=== PATIENT | male | born 1960 | race Caucasian/White ===

== ENCOUNTER 2019-01-18 06:38 | Emergency (ER) | payer OTHER, MEDICAID, SELFPAY ==
[2019-01-18 06:50] VITALS: BP 158/102; PULSE 85; RESP 20; TEMP 36.5; O2SAT 98; BMI 33.8
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
--- NOTE | 2019-01-18 07:07 | PC.NURSE ---
His distal CMS on left foot is intact.
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
== END 2019-01-18 07:58 | disposition home or self-care (01) ==
PROVIDERS: Emergency Provider Emergency Medicine; PCP Nurse Practitioner
DX: S93.502A Unspecified sprain of left great toe, initial encounter (principal)
CPT/HCPCS: 73630; 99283

== ENCOUNTER 2019-03-17 00:58 | Emergency (ER) | payer OTHER, MEDICAID, SELFPAY ==
[2019-03-17] VITALS (51 sets, daily range): BP systolic 139–207; BP diastolic 76–139; PULSE 70–117; RESP 13–22; TEMP 36.6–37.3; O2SAT 92–100; BMI 35.7
--- NOTE | 2019-03-17 01:04 | ED.ALCOHOL ---
HPI - Alcohol <Alison Murray DO - Last Filed: 03/20/19 11:34> General Chief Complaint: Toxicology Problem Stated Complaint: ETOH x5 Days Time Seen by Provider: 03/17/19 01:03 Source: patient and EMS Mode of arrival: EMS Limitations: no limitations History of Present Illness HPI narrative: Patient is a 58-year-old male presenting by EMS with alcohol intoxication and suicidal ideation. He states he has been drinking heavily at least a L of vodka daily for the last few days. He states that he would like to take a bunch of pills in order to kill himself. He says he was previously in a mental health hospital in [facility]. He is here requesting help. Is not sure if he needs detox versus mental Health but he overall feels very sad depressed. He states he does have a history of depression and bipolar. He also complains of chest pain abdominal pain shortness breath no nausea or vomiting. MD complaint: alcohol intoxication Related Data Previous Rx's Medication Instructions Recorded hydrocodone-acetaminophen [[place]] 1 tab PO Q6H PRN #8 tab 01/18/19 meloxicam 7.5 mg PO DAILY PRN #20 tab 01/18/19 Allergies Allergy/AdvReac Type Severity Reaction Status Date / Time No Known Drug Allergies Allergy Verified 01/18/19 07:13 Review of Systems <DO Katrin Vasquez Last Filed: 03/20/19 11:34> Review of Systems ROS Unobtainable: All systems reviewed & are unremarkable except as noted in HPI and below Constitutional Denies chills, Denies fever(s), Denies lethargy and Denies weakness Eyes Denies change in vision, Denies eye discharge, Denies irritation and Denies loss of vision ENT Ears, Nose, Mouth, and Throat: Denies change in voice, Denies neck pain and Denies sore throat Cardiovascular Reports as per HPI, Reports chest pain, Denies diaphoresis, Denies edema, Denies lightheadedness and Denies dyspnea Respiratory Denies cough, Denies dyspnea and Denies wheezing Gastrointestinal Gastrointestinal: Reports abdominal pain, Reports nausea and Denies vomiting Genitourinary Denies hematuria, Denies flank pain, Denies urinary incontinence and Denies urinary urgency Musculoskeletal Denies neck pain Integumentary/Breasts Denies pruritus, Denies erythema, Denies rash and Denies wounds Neurologic Denies loss of vision and Denies weakness Allergic/Immunologic Denies wheezing PFSH <Alison Murray DO - Last Filed: 03/20/19 11:34> Medical History Anxiety (Acute) Bipolar 1 disorder (Acute) Depression (Acute) Hypertension (Acute) Social History Smoking Status: Never smoker Social History Smoking Status: Never smoker Exam <DO Katrin Vasquez Last Filed: 03/20/19 11:34> Initial Vital Signs Initial Vital Signs: Vital Signs Temperature 97.8 F 03/17/19 01:00 Pulse Rate 85 03/17/19 01:00 Respiratory Rate 20 03/17/19 01:00 Blood Pressure 170/100 H 03/17/19 01:00 Pulse Oximetry 98 03/17/19 01:00 GENERAL: Alert sad alcohol on breath HEENT: Head atraumatic,EOMI, pupils reactive, face symmetric, moist mucous membranes CARDIOVASCULAR: Regular rate and rhythm without murmurs, rubs or gallops. RESPIRATORY: Breath sounds equal bilaterally, no wheezes rales or rhonchi. ABDOMEN: Soft, nontender. Normoactive bowel sounds all 4 quadrants. No guarding or rebound. EXTREMITIES: Normal range of motion, no clubbing or edema. Neurovascularly intact NEUROLOGICAL: Alert and oriented x4.Normal gait and speech. SKIN: Warm, dry, no laceration, no petechiae, no rashes or lesions. <Sal Aguilera, DO - Last Filed: 03/18/19 23:30> Initial Vital Signs Initial Vital Signs: Vital Signs Temperature 97.8 F 03/17/19 01:00 Pulse Rate 85 03/17/19 01:00 Respiratory Rate 20 03/17/19 01:00 Blood Pressure 170/100 H 03/17/19 01:00 Pulse Oximetry 98 03/17/19 01:00 <Kary Isaac DO - Last Filed: 03/18/19 17:55> Initial Vital Signs Initial Vital Signs: Vital Signs Temperature 97.8 F 03/17/19 01:00 Pulse Rate 85 03/17/19 01:00 Respiratory Rate 20 03/17/19 01:00 Blood Pressure 170/100 H 03/17/19 01:00 Pulse Oximetry 98 03/17/19 01:00 Course <Alison Murray DO - Last Filed: 03/20/19 11:34> Orders Ordered: Discontinued Medications Carvedilol (Coreg) 6.25 mg PO NOW ONE Stop: 03/17/19 21:14 Last Admin: 03/17/19 21:26 Dose: 6.25 mg Carvedilol (Coreg) 6.25 mg PO NOW ONE Stop: 03/18/19 07:03 Last Admin: 03/18/19 07:13 Dose: 6.25 mg Sodium Chloride (Normal Saline 0.9%) 1,000 mls @ 1,000 mls/hr IV CONT FORTUNATO Last Infusion: 03/17/19 04:34 Dose: 0 mls/hr Admin: 03/17/19 02:30 Dose: 1,000 mls/hr Sodium Chloride (Normal Saline 0.9%) 1,000 mls @ 1,000 mls/hr IV BOLUS ONE Stop: 03/17/19 11:13 Last Infusion: 03/17/19 11:36 Dose: 0 mls/hr Admin: 03/17/19 10:22 Dose: 1,000 mls/hr Thiamine HCl 100 mg/ Dextrose 51 mls @ 204 mls/hr IV NOW ONE Stop: 03/17/19 10:15 Last Infusion: 03/17/19 10:50 Dose: 0 mls/hr Admin: 03/17/19 10:31 Dose: 204 mls/hr Ibuprofen (Advil) 800 mg PO NOW ONE Stop: 03/17/19 06:40 Last Admin: 03/17/19 06:48 Dose: 800 mg Ibuprofen (Advil) 800 mg PO NOW ONE Stop: 03/17/19 20:08 Last Admin: 03/17/19 20:13 Dose: 800 mg Lisinopril (Zestril) 40 mg PO NOW ONE Stop: 03/17/19 21:14 Last Admin: 03/17/19 21:27 Dose: 40 mg Lorazepam (Ativan) 2 mg PO NOW ONE Stop: 03/17/19 01:32 Last Admin: 03/17/19 01:36 Dose: 2 mg Lorazepam (Ativan) 2 mg IV NOW ONE Stop: 03/17/19 14:52 Last Admin: 03/17/19 14:51 Dose: 2 mg Lorazepam (Ativan) 2 mg PO NOW ONE Stop: 03/17/19 21:14 Last Admin: 03/17/19 21:25 Dose: 2 mg Lorazepam (Ativan) 1 mg PO NOW ONE Stop: 03/18/19 09:00 Last Admin: 03/18/19 09:15 Dose: Not Given Lorazepam (Ativan) 2 mg PO NOW ONE Stop: 03/18/19 09:01 Last Admin: 03/18/19 09:04 Dose: 2 mg Ondansetron HCl (Zofran) 4 mg IV Q4HR PRN PRN Reason: Nausea And Vomiting Last Admin: 03/17/19 10:23 Dose: 4 mg Ondansetron HCl (Zofran) 4 mg IV NOW ONE Stop: 03/17/19 20:08 Last Admin: 03/17/19 20:13 Dose: 4 mg Pantoprazole Sodium (Protonix) 40 mg IV NOW ONE Stop: 03/17/19 10:15 Last Admin: 03/17/19 10:23 Dose: 40 mg Vital Signs - 8 hr 03/18/19 10:08 03/18/19 11:02 03/18/19 11:37 Temperature 97.0 F L Pulse Rate 59 L 68 68 Respiratory Rate 14 14 15 Blood Pressure [Right Arm] 171/98 H 166/105 H 177/98 H Pulse Oximetry 95 93 94 <Sal Aguilera, - Last Filed: 03/18/19 23:30> Course Narrative: Patient signed out to me from nighttime provider, Dr. Murray. I performed an independent history and physical exam. Patient is awake, alert and oriented, he has capacity to make his own decisions and understand consequences of his decisions. He continues to have suicidal thoughts and has a plan to overdose on pills. He sees no light at the end of the tunnel and states there is nothing anybody can do to help him. He continues to feel nauseated and is thirsty, fluids and antiemetics have been ordered. BUSINESS CONSULT will be down after repeat of EtOH. It is my opinion that patient will need hospitalization and cannot contract for his safety Orders Ordered: Discontinued Medications Carvedilol (Coreg) 6.25 mg PO NOW ONE Stop: 03/17/19 21:14 Last Admin: 03/17/19 21:26 Dose: 6.25 mg Carvedilol (Coreg) 6.25 mg PO NOW ONE Stop: 03/18/19 07:03 Last Admin: 03/18/19 07:13 Dose: 6.25 mg Sodium Chloride (Normal Saline 0.9%) 1,000 mls @ 1,000 mls/hr IV CONT FORTUNATO Last Infusion: 03/17/19 04:34 Dose: 0 mls/hr Admin: 03/17/19 02:30 Dose: 1,000 mls/hr Sodium Chloride (Normal Saline 0.9%) 1,000 mls @ 1,000 mls/hr IV BOLUS ONE Stop: 03/17/19 11:13 Last Infusion: 03/17/19 11:36 Dose: 0 mls/hr Admin: 03/17/19 10:22 Dose: 1,000 mls/hr Thiamine HCl 100 mg/ Dextrose 51 mls @ 204 mls/hr IV NOW ONE Stop: 03/17/19 10:15 Last Infusion: 03/17/19 10:50 Dose: 0 mls/hr Admin: 03/17/19 10:31 Dose: 204 mls/hr Ibuprofen (Advil) 800 mg PO NOW ONE Stop: 03/17/19 06:40 Last Admin: 03/17/19 06:48 Dose: 800 mg Ibuprofen (Advil) 800 mg PO NOW ONE Stop: 03/17/19 20:08 Last Admin: 03/17/19 20:13 Dose: 800 mg Lisinopril (Zestril) 40 mg PO NOW ONE Stop: 03/17/19 21:14 Last Admin: 03/17/19 21:27 Dose: 40 mg Lorazepam (Ativan) 2 mg PO NOW ONE Stop: 03/17/19 01:32 Last Admin: 03/17/19 01:36 Dose: 2 mg Lorazepam (Ativan) 2 mg IV NOW ONE Stop: 03/17/19 14:52 Last Admin: 03/17/19 14:51 Dose: 2 mg Lorazepam (Ativan) 2 mg PO NOW ONE Stop: 03/17/19 21:14 Last Admin: 03/17/19 21:25 Dose: 2 mg Lorazepam (Ativan) 1 mg PO NOW ONE Stop: 03/18/19 09:00 Last Admin: 03/18/19 09:15 Dose: Not Given Lorazepam (Ativan) 2 mg PO NOW ONE Stop: 03/18/19 09:01 Last Admin: 03/18/19 09:04 Dose: 2 mg Ondansetron HCl (Zofran) 4 mg IV Q4HR PRN PRN Reason: Nausea And Vomiting Last Admin: 03/17/19 10:23 Dose: 4 mg Ondansetron HCl (Zofran) 4 mg IV NOW ONE Stop: 03/17/19 20:08 Last Admin: 03/17/19 20:13 Dose: 4 mg Pantoprazole Sodium (Protonix) 40 mg IV NOW ONE Stop: 03/17/19 10:15 Last Admin: 03/17/19 10:23 Dose: 40 mg Vital Signs - 8 hr 03/18/19 10:08 03/18/19 11:02 03/18/19 11:37 Temperature 97.0 F L Pulse Rate 59 L 68 68 Respiratory Rate 14 14 15 Blood Pressure [Right Arm] 171/98 H 166/105 H 177/98 H Pulse Oximetry 95 93 94 <Kary Isaac, - Last Filed: 03/18/19 17:55> Orders Ordered: Discontinued Medications Carvedilol (Coreg) 6.25 mg PO NOW ONE Stop: 03/17/19 21:14 Last Admin: 03/17/19 21:26 Dose: 6.25 mg Carvedilol (Coreg) 6.25 mg PO NOW ONE Stop: 03/18/19 07:03 Last Admin: 03/18/19 07:13 Dose: 6.25 mg Sodium Chloride (Normal Saline 0.9%) 1,000 mls @ 1,000 mls/hr IV CONT FORTUNATO Last Infusion: 03/17/19 04:34 Dose: 0 mls/hr Admin: 03/17/19 02:30 Dose: 1,000 mls/hr Sodium Chloride (Normal Saline 0.9%) 1,000 mls @ 1,000 mls/hr IV BOLUS ONE Stop: 03/17/19 11:13 Last Infusion: 03/17/19 11:36 Dose: 0 mls/hr Admin: 03/17/19 10:22 Dose: 1,000 mls/hr Thiamine HCl 100 mg/ Dextrose 51 mls @ 204 mls/hr IV NOW ONE Stop: 03/17/19 10:15 Last Infusion: 03/17/19 10:50 Dose: 0 mls/hr Admin: 03/17/19 10:31 Dose: 204 mls/hr Ibuprofen (Advil) 800 mg PO NOW ONE Stop: 03/17/19 06:40 Last Admin: 03/17/19 06:48 Dose: 800 mg Ibuprofen (Advil) 800 mg PO NOW ONE Stop: 03/17/19 20:08 Last Admin: 03/17/19 20:13 Dose: 800 mg Lisinopril (Zestril) 40 mg PO NOW ONE Stop: 03/17/19 21:14 Last Admin: 03/17/19 21:27 Dose: 40 mg Lorazepam (Ativan) 2 mg PO NOW ONE Stop: 03/17/19 01:32 Last Admin: 03/17/19 01:36 Dose: 2 mg Lorazepam (Ativan) 2 mg IV NOW ONE Stop: 03/17/19 14:52 Last Admin: 03/17/19 14:51 Dose: 2 mg Lorazepam (Ativan) 2 mg PO NOW ONE Stop: 03/17/19 21:14 Last Admin: 03/17/19 21:25 Dose: 2 mg Lorazepam (Ativan) 1 mg PO NOW ONE Stop: 03/18/19 09:00 Last Admin: 03/18/19 09:15 Dose: Not Given Lorazepam (Ativan) 2 mg PO NOW ONE Stop: 03/18/19 09:01 Last Admin: 03/18/19 09:04 Dose: 2 mg Ondansetron HCl (Zofran) 4 mg IV Q4HR PRN PRN Reason: Nausea And Vomiting Last Admin: 03/17/19 10:23 Dose: 4 mg Ondansetron HCl (Zofran) 4 mg IV NOW ONE Stop: 03/17/19 20:08 Last Admin: 03/17/19 20:13 Dose: 4 mg Pantoprazole Sodium (Protonix) 40 mg IV NOW ONE Stop: 03/17/19 10:15 Last Admin: 03/17/19 10:23 Dose: 40 mg Vital Signs - 8 hr 03/18/19 10:08 03/18/19 11:02 03/18/19 11:37 Temperature 97.0 F L Pulse Rate 59 L 68 68 Respiratory Rate 14 14 15 Blood Pressure [Right Arm] 171/98 H 166/105 H 177/98 H Pulse Oximetry 95 93 94 MDM - Alcohol <Ailson Murray DO - Last Filed: 03/20/19 11:34> Lab Data Attestation: I reviewed the patient's lab results. Result diagrams: 03/17/19 02:28 03/17/19 02:55 Labs: Lab Results 03/17/19 03/17/19 03/17/19 Range/Units 02:28 02:55 06:24 WBC 9.1 (4.5-11.0) X10^3/uL RBC 5.35 (4.5-5.9) X10^6/uL Hgb 16.5 (13.5-17.5) g/dL Hct 48.4 (41-53) % MCV 90.5 (80-100) fL MCH 30.9 (26-34) PG MCHC 34.1 (30-36) % RDW 13.6 (11.6-14.8) % Plt Count 250 (150-400) X10^3/uL Neut % (Auto) 57.1 (50-75) % Lymph % (Auto) 36.6 (25-40) % [place] % (Auto) 4.9 (3-14) % Eos % (Auto) 0.8 L (2-4) % Baso % (Auto) 0.6 (0-2) % Neut # (Auto) 5200 (8808-5990) /uL Lymph # (Auto) 3300 (3441-0701) /uL [place] # (Auto) 400 (0-900) /uL Eos # (Auto) 100 (0-450) /uL Baso # (Auto) 100 (0-100) /uL Sodium 141 (137-145) mmol/L Potassium 3.9 (3.4-5.1) mmol/L Chloride 104 (98-107) mmol/L Carbon Dioxide 24 (22-32) mmol/L BUN 23 H (9-20) mg/dL Creatinine 1.00 (0.66-1.25) mg/dL Estimated GFR > 60.0 (>60) mL/min BUN/Creatinine Ratio 23.0 H (6-22) Glucose 105 H (70-100) mg/dL Calcium 8.2 L (8.4-10.2) mg/dL Total Bilirubin 0.5 (0.2-1.3) mg/dL AST 38 (17-59) IU/L ALT 36 (21-72) IU/L Alkaline Phosphatase 40 (38-126) U/L Total Creatine Kinase 53 L (55-170) U/L CK-MB (CK-2) TNP CK-MB (CK-2) Rel Index TNP Troponin I < 0.012 < 0.012 (0.01-0.034) ng/mL B-Natriuretic Peptide < 100 (<100) Total Protein 6.9 (6.3-8.2) g/dL Albumin 4.0 (3.5-5.0) g/dL Globulin 2.9 (1.7-4.1) g/dL Albumin/Globulin Ratio 1.4 (1.0-2.8) Lipase 159 (23-300) U/L Urine Opiates Screen (Negative) Ur Oxycodone Screen (Negative) Urine Methadone Screen (Negative) Ur Barbiturates Screen (Negative) U Tricyclic Antidepress (Negative) Ur Phencyclidine Scrn (Negative) Ur Amphetamines Screen (Negative) U Methamphetamines Scrn (Negative) Ur MDMA Scrn (Ecstasy) (Negative) U Benzodiazepines Scrn (Negative) Urine Cocaine Screen (Negative) U Marijuana (THC) Screen (Negative) Ethyl Alcohol 256 mg/dL 03/17/19 03/17/19 03/17/19 Range/Units 06:24 06:43 11:03 WBC (4.5-11.0) X10^3/uL RBC (4.5-5.9) X10^6/uL Hgb (13.5-17.5) g/dL Hct (41-53) % MCV (80-100) fL MCH (26-34) PG MCHC (30-36) % RDW (11.6-14.8) % Plt Count (150-400) X10^3/uL Neut % (Auto) (50-75) % Lymph % (Auto) (25-40) % [place] % (Auto) (3-14) % Eos % (Auto) (2-4) % Baso % (Auto) (0-2) % Neut # (Auto) (9112-0590) /uL Lymph # (Auto) (3582-5780) /uL [place] # (Auto) (0-900) /uL Eos # (Auto) (0-450) /uL Baso # (Auto) (0-100) /uL Sodium (137-145) mmol/L Potassium (3.4-5.1) mmol/L Chloride (98-107) mmol/L Carbon Dioxide (22-32) mmol/L BUN (9-20) mg/dL Creatinine (0.66-1.25) mg/dL Estimated GFR (>60) mL/min BUN/Creatinine Ratio (6-22) Glucose (70-100) mg/dL Calcium (8.4-10.2) mg/dL Total Bilirubin (0.2-1.3) mg/dL AST (17-59) IU/L ALT (21-72) IU/L Alkaline Phosphatase (38-126) U/L Total Creatine Kinase (55-170) U/L CK-MB (CK-2) CK-MB (CK-2) Rel Index Troponin I (0.01-0.034) ng/mL B-Natriuretic Peptide (<100) Total Protein (6.3-8.2) g/dL Albumin (3.5-5.0) g/dL Globulin (1.7-4.1) g/dL Albumin/Globulin Ratio (1.0-2.8) Lipase (23-300) U/L Urine Opiates Screen Negative (Negative) Ur Oxycodone Screen Negative (Negative) Urine Methadone Screen Negative (Negative) Ur Barbiturates Screen Negative (Negative) U Tricyclic Antidepress Negative (Negative) Ur Phencyclidine Scrn Negative (Negative) Ur Amphetamines Screen Positive H (Negative) U Methamphetamines Scrn Positive H (Negative) Ur MDMA Scrn (Ecstasy) Negative (Negative) U Benzodiazepines Scrn Positive H (Negative) Urine Cocaine Screen Negative (Negative) U Marijuana (THC) Screen Positive H (Negative) Ethyl Alcohol 224 150 mg/dL 03/17/19 Range/Units 14:01 WBC (4.5-11.0) X10^3/uL RBC (4.5-5.9) X10^6/uL Hgb (13.5-17.5) g/dL Hct (41-53) % MCV (80-100) fL MCH (26-34) PG MCHC (30-36) % RDW (11.6-14.8) % Plt Count (150-400) X10^3/uL Neut % (Auto) (50-75) % Lymph % (Auto) (25-40) % [place] % (Auto) (3-14) % Eos % (Auto) (2-4) % Baso % (Auto) (0-2) % Neut # (Auto) (2878-1369) /uL Lymph # (Auto) (6401-7617) /uL [place] # (Auto) (0-900) /uL Eos # (Auto) (0-450) /uL Baso # (Auto) (0-100) /uL Sodium (137-145) mmol/L Potassium (3.4-5.1) mmol/L Chloride (98-107) mmol/L Carbon Dioxide (22-32) mmol/L BUN (9-20) mg/dL Creatinine (0.66-1.25) mg/dL Estimated GFR (>60) mL/min BUN/Creatinine Ratio (6-22) Glucose (70-100) mg/dL Calcium (8.4-10.2) mg/dL Total Bilirubin (0.2-1.3) mg/dL AST (17-59) IU/L ALT (21-72) IU/L Alkaline Phosphatase (38-126) U/L Total Creatine Kinase (55-170) U/L CK-MB (CK-2) CK-MB (CK-2) Rel Index Troponin I (0.01-0.034) ng/mL B-Natriuretic Peptide (<100) Total Protein (6.3-8.2) g/dL Albumin (3.5-5.0) g/dL Globulin (1.7-4.1) g/dL Albumin/Globulin Ratio (1.0-2.8) Lipase (23-300) U/L Urine Opiates Screen (Negative) Ur Oxycodone Screen (Negative) Urine Methadone Screen (Negative) Ur Barbiturates Screen (Negative) U Tricyclic Antidepress (Negative) Ur Phencyclidine Scrn (Negative) Ur Amphetamines Screen (Negative) U Methamphetamines Scrn (Negative) Ur MDMA Scrn (Ecstasy) (Negative) U Benzodiazepines Scrn (Negative) Urine Cocaine Screen (Negative) U Marijuana (THC) Screen (Negative) Ethyl Alcohol 104 mg/dL Point of Care Testing Breathalizer 0.086 Urine Dip Bedside Urine Glucose Negative Bedside Urine Bilirubin - Negative Bedside Urine Ketone - Negative Urine Specific [place] 1.015 Bedside Urine Occult Blood - Negative Bedside Urine pH 6.5 Bedside Urine Protein - Negative Bedside Urine Urobilinogen +/- 1mg Bedside Urine Nitrite - Negative Bedside Urine Leukocytes - Negative Esterase Imaging Data Chest x-ray: Attestation: I personally reviewed and interpreted this imaging study as follows: My impression: No acute cardiopulmonary process ECG Data Attestation: I personally reviewed and interpreted this ECG as follows: Prior ECG tracings: available for review Interpretation: Normal sinus rhythm rate 83 P are interval [address] changes no T-wave inversions priors to compare MDM Narrative Medical decision making narrative: 6:30 a.m. patient is awake alert. His I have re-evaluated him. He says he basically does not care anymore. He wants medicine for his headache which he is offered Tylenol or ibuprofen for for which he refuses. Social work consult has been placed. I do not feel that patient is trust worthy he does not seem to be able to contract for safety. He does not have a good support system. He is very vague in his responses. Repeat breathalyzer is 86 at 7:00 a.m. 6:00 p.m.. patient signed out to me by day should provider. Awaiting psychiatric placement. [facility] and detox center did call they would like his blood pressure better controlled before they accept him and will re-evaluate him in morning. [facility] At this time no other facilities have beds. <Sal Aguilera, DO - Last Filed: 03/18/19 23:30> Lab Data Labs: Lab Results 03/17/19 03/17/19 03/17/19 Range/Units 02:28 02:55 06:24 WBC 9.1 (4.5-11.0) X10^3/uL RBC 5.35 (4.5-5.9) X10^6/uL Hgb 16.5 (13.5-17.5) g/dL Hct 48.4 (41-53) % MCV 90.5 (80-100) fL MCH 30.9 (26-34) PG MCHC 34.1 (30-36) % RDW 13.6 (11.6-14.8) % Plt Count 250 (150-400) X10^3/uL Neut % (Auto) 57.1 (50-75) % Lymph % (Auto) 36.6 (25-40) % [place] % (Auto) 4.9 (3-14) % Eos % (Auto) 0.8 L (2-4) % Baso % (Auto) 0.6 (0-2) % Neut # (Auto) 5200 (9163-3512) /uL Lymph # (Auto) 3300 (2443-8474) /uL [place] # (Auto) 400 (0-900) /uL Eos # (Auto) 100 (0-450) /uL Baso # (Auto) 100 (0-100) /uL Sodium 141 (137-145) mmol/L Potassium 3.9 (3.4-5.1) mmol/L Chloride 104 (98-107) mmol/L Carbon Dioxide 24 (22-32) mmol/L BUN 23 H (9-20) mg/dL Creatinine 1.00 (0.66-1.25) mg/dL Estimated GFR > 60.0 (>60) mL/min BUN/Creatinine Ratio 23.0 H (6-22) Glucose 105 H (70-100) mg/dL Calcium 8.2 L (8.4-10.2) mg/dL Total Bilirubin 0.5 (0.2-1.3) mg/dL AST 38 (17-59) IU/L ALT 36 (21-72) IU/L Alkaline Phosphatase 40 (38-126) U/L Total Creatine Kinase 53 L (55-170) U/L CK-MB (CK-2) TNP CK-MB (CK-2) Rel Index TNP Troponin I < 0.012 < 0.012 (0.01-0.034) ng/mL B-Natriuretic Peptide < 100 (<100) Total Protein 6.9 (6.3-8.2) g/dL Albumin 4.0 (3.5-5.0) g/dL Globulin 2.9 (1.7-4.1) g/dL Albumin/Globulin Ratio 1.4 (1.0-2.8) Lipase 159 (23-300) U/L Urine Opiates Screen (Negative) Ur Oxycodone Screen (Negative) Urine Methadone Screen (Negative) Ur Barbiturates Screen (Negative) U Tricyclic Antidepress (Negative) Ur Phencyclidine Scrn (Negative) Ur Amphetamines Screen (Negative) U Methamphetamines Scrn (Negative) Ur MDMA Scrn (Ecstasy) (Negative) U Benzodiazepines Scrn (Negative) Urine Cocaine Screen (Negative) U Marijuana (THC) Screen (Negative) Ethyl Alcohol 256 mg/dL 03/17/19 03/17/19 03/17/19 Range/Units 06:24 06:43 11:03 WBC (4.5-11.0) X10^3/uL RBC (4.5-5.9) X10^6/uL Hgb (13.5-17.5) g/dL Hct (41-53) % MCV (80-100) fL MCH (26-34) PG MCHC (30-36) % RDW (11.6-14.8) % Plt Count (150-400) X10^3/uL Neut % (Auto) (50-75) % Lymph % (Auto) (25-40) % [place] % (Auto) (3-14) % Eos % (Auto) (2-4) % Baso % (Auto) (0-2) % Neut # (Auto) (0615-9060) /uL Lymph # (Auto) (9775-7617) /uL [place] # (Auto) (0-900) /uL Eos # (Auto) (0-450) /uL Baso # (Auto) (0-100) /uL Sodium (137-145) mmol/L Potassium (3.4-5.1) mmol/L Chloride (98-107) mmol/L Carbon Dioxide (22-32) mmol/L BUN (9-20) mg/dL Creatinine (0.66-1.25) mg/dL Estimated GFR (>60) mL/min BUN/Creatinine Ratio (6-22) Glucose (70-100) mg/dL Calcium (8.4-10.2) mg/dL Total Bilirubin (0.2-1.3) mg/dL AST (17-59) IU/L ALT (21-72) IU/L Alkaline Phosphatase (38-126) U/L Total Creatine Kinase (55-170) U/L CK-MB (CK-2) CK-MB (CK-2) Rel Index Troponin I (0.01-0.034) ng/mL B-Natriuretic Peptide (<100) Total Protein (6.3-8.2) g/dL Albumin (3.5-5.0) g/dL Globulin (1.7-4.1) g/dL Albumin/Globulin Ratio (1.0-2.8) Lipase (23-300) U/L Urine Opiates Screen Negative (Negative) Ur Oxycodone Screen Negative (Negative) Urine Methadone Screen Negative (Negative) Ur Barbiturates Screen Negative (Negative) U Tricyclic Antidepress Negative (Negative) Ur Phencyclidine Scrn Negative (Negative) Ur Amphetamines Screen Positive H (Negative) U Methamphetamines Scrn Positive H (Negative) Ur MDMA Scrn (Ecstasy) Negative (Negative) U Benzodiazepines Scrn Positive H (Negative) Urine Cocaine Screen Negative (Negative) U Marijuana (THC) Screen Positive H (Negative) Ethyl Alcohol 224 150 mg/dL 03/17/19 Range/Units 14:01 WBC (4.5-11.0) X10^3/uL RBC (4.5-5.9) X10^6/uL Hgb (13.5-17.5) g/dL Hct (41-53) % MCV (80-100) fL MCH (26-34) PG MCHC (30-36) % RDW (11.6-14.8) % Plt Count (150-400) X10^3/uL Neut % (Auto) (50-75) % Lymph % (Auto) (25-40) % [place] % (Auto) (3-14) % Eos % (Auto) (2-4) % Baso % (Auto) (0-2) % Neut # (Auto) (7299-8166) /uL Lymph # (Auto) (6939-5470) /uL [place] # (Auto) (0-900) /uL Eos # (Auto) (0-450) /uL Baso # (Auto) (0-100) /uL Sodium (137-145) mmol/L Potassium (3.4-5.1) mmol/L Chloride (98-107) mmol/L Carbon Dioxide (22-32) mmol/L BUN (9-20) mg/dL Creatinine (0.66-1.25) mg/dL Estimated GFR (>60) mL/min BUN/Creatinine Ratio (6-22) Glucose (70-100) mg/dL Calcium (8.4-10.2) mg/dL Total Bilirubin (0.2-1.3) mg/dL AST (17-59) IU/L ALT (21-72) IU/L Alkaline Phosphatase (38-126) U/L Total Creatine Kinase (55-170) U/L CK-MB (CK-2) CK-MB (CK-2) Rel Index Troponin I (0.01-0.034) ng/mL B-Natriuretic Peptide (<100) Total Protein (6.3-8.2) g/dL Albumin (3.5-5.0) g/dL Globulin (1.7-4.1) g/dL Albumin/Globulin Ratio (1.0-2.8) Lipase (23-300) U/L Urine Opiates Screen (Negative) Ur Oxycodone Screen (Negative) Urine Methadone Screen (Negative) Ur Barbiturates Screen (Negative) U Tricyclic Antidepress (Negative) Ur Phencyclidine Scrn (Negative) Ur Amphetamines Screen (Negative) U Methamphetamines Scrn (Negative) Ur MDMA Scrn (Ecstasy) (Negative) U Benzodiazepines Scrn (Negative) Urine Cocaine Screen (Negative) U Marijuana (THC) Screen (Negative) Ethyl Alcohol 104 mg/dL Point of Care Testing Breathalizer 0.086 Urine Dip Bedside Urine Glucose Negative Bedside Urine Bilirubin - Negative Bedside Urine Ketone - Negative Urine Specific [place] 1.015 Bedside Urine Occult Blood - Negative Bedside Urine pH 6.5 Bedside Urine Protein - Negative Bedside Urine Urobilinogen +/- 1mg Bedside Urine Nitrite - Negative Bedside Urine Leukocytes - Negative Esterase <Kary Isaac, - Last Filed: 03/18/19 17:55> Lab Data Attestation: I reviewed the patient's lab results. Labs: Lab Results 03/17/19 03/17/19 03/17/19 Range/Units 02:28 02:55 06:24 WBC 9.1 (4.5-11.0) X10^3/uL RBC 5.35 (4.5-5.9) X10^6/uL Hgb 16.5 (13.5-17.5) g/dL Hct 48.4 (41-53) % MCV 90.5 (80-100) fL MCH 30.9 (26-34) PG MCHC 34.1 (30-36) % RDW 13.6 (11.6-14.8) % Plt Count 250 (150-400) X10^3/uL Neut % (Auto) 57.1 (50-75) % Lymph % (Auto) 36.6 (25-40) % [place] % (Auto) 4.9 (3-14) % Eos % (Auto) 0.8 L (2-4) % Baso % (Auto) 0.6 (0-2) % Neut # (Auto) 5200 (7641-8285) /uL Lymph # (Auto) 3300 (3046-0166) /uL [place] # (Auto) 400 (0-900) /uL Eos # (Auto) 100 (0-450) /uL Baso # (Auto) 100 (0-100) /uL Sodium 141 (137-145) mmol/L Potassium 3.9 (3.4-5.1) mmol/L Chloride 104 (98-107) mmol/L Carbon Dioxide 24 (22-32) mmol/L BUN 23 H (9-20) mg/dL Creatinine 1.00 (0.66-1.25) mg/dL Estimated GFR > 60.0 (>60) mL/min BUN/Creatinine Ratio 23.0 H (6-22) Glucose 105 H (70-100) mg/dL Calcium 8.2 L (8.4-10.2) mg/dL Total Bilirubin 0.5 (0.2-1.3) mg/dL AST 38 (17-59) IU/L ALT 36 (21-72) IU/L Alkaline Phosphatase 40 (38-126) U/L Total Creatine Kinase 53 L (55-170) U/L CK-MB (CK-2) TNP CK-MB (CK-2) Rel Index TNP Troponin I < 0.012 < 0.012 (0.01-0.034) ng/mL B-Natriuretic Peptide < 100 (<100) Total Protein 6.9 (6.3-8.2) g/dL Albumin 4.0 (3.5-5.0) g/dL Globulin 2.9 (1.7-4.1) g/dL Albumin/Globulin Ratio 1.4 (1.0-2.8) Lipase 159 (23-300) U/L Urine Opiates Screen (Negative) Ur Oxycodone Screen (Negative) Urine Methadone Screen (Negative) Ur Barbiturates Screen (Negative) U Tricyclic Antidepress (Negative) Ur Phencyclidine Scrn (Negative) Ur Amphetamines Screen (Negative) U Methamphetamines Scrn (Negative) Ur MDMA Scrn (Ecstasy) (Negative) U Benzodiazepines Scrn (Negative) Urine Cocaine Screen (Negative) U Marijuana (THC) Screen (Negative) Ethyl Alcohol 256 mg/dL 03/17/19 03/17/19 03/17/19 Range/Units 06:24 06:43 11:03 WBC (4.5-11.0) X10^3/uL RBC (4.5-5.9) X10^6/uL Hgb (13.5-17.5) g/dL Hct (41-53) % MCV (80-100) fL MCH (26-34) PG MCHC (30-36) % RDW (11.6-14.8) % Plt Count (150-400) X10^3/uL Neut % (Auto) (50-75) % Lymph % (Auto) (25-40) % [place] % (Auto) (3-14) % Eos % (Auto) (2-4) % Baso % (Auto) (0-2) % Neut # (Auto) (7031-5282) /uL Lymph # (Auto) (0082-9514) /uL [place] # (Auto) (0-900) /uL Eos # (Auto) (0-450) /uL Baso # (Auto) (0-100) /uL Sodium (137-145) mmol/L Potassium (3.4-5.1) mmol/L Chloride (98-107) mmol/L Carbon Dioxide (22-32) mmol/L BUN (9-20) mg/dL Creatinine (0.66-1.25) mg/dL Estimated GFR (>60) mL/min BUN/Creatinine Ratio (6-22) Glucose (70-100) mg/dL Calcium (8.4-10.2) mg/dL Total Bilirubin (0.2-1.3) mg/dL AST (17-59) IU/L ALT (21-72) IU/L Alkaline Phosphatase (38-126) U/L Total Creatine Kinase (55-170) U/L CK-MB (CK-2) CK-MB (CK-2) Rel Index Troponin I (0.01-0.034) ng/mL B-Natriuretic Peptide (<100) Total Protein (6.3-8.2) g/dL Albumin (3.5-5.0) g/dL Globulin (1.7-4.1) g/dL Albumin/Globulin Ratio (1.0-2.8) Lipase (23-300) U/L Urine Opiates Screen Negative (Negative) Ur Oxycodone Screen Negative (Negative) Urine Methadone Screen Negative (Negative) Ur Barbiturates Screen Negative (Negative) U Tricyclic Antidepress Negative (Negative) Ur Phencyclidine Scrn Negative (Negative) Ur Amphetamines Screen Positive H (Negative) U Methamphetamines Scrn Positive H (Negative) Ur MDMA Scrn (Ecstasy) Negative (Negative) U Benzodiazepines Scrn Positive H (Negative) Urine Cocaine Screen Negative (Negative) U Marijuana (THC) Screen Positive H (Negative) Ethyl Alcohol 224 150 mg/dL 03/17/19 Range/Units 14:01 WBC (4.5-11.0) X10^3/uL RBC (4.5-5.9) X10^6/uL Hgb (13.5-17.5) g/dL Hct (41-53) % MCV (80-100) fL MCH (26-34) PG MCHC (30-36) % RDW (11.6-14.8) % Plt Count (150-400) X10^3/uL Neut % (Auto) (50-75) % Lymph % (Auto) (25-40) % [place] % (Auto) (3-14) % Eos % (Auto) (2-4) % Baso % (Auto) (0-2) % Neut # (Auto) (4022-5355) /uL Lymph # (Auto) (7205-1677) /uL [place] # (Auto) (0-900) /uL Eos # (Auto) (0-450) /uL Baso # (Auto) (0-100) /uL Sodium (137-145) mmol/L Potassium (3.4-5.1) mmol/L Chloride (98-107) mmol/L Carbon Dioxide (22-32) mmol/L BUN (9-20) mg/dL Creatinine (0.66-1.25) mg/dL Estimated GFR (>60) mL/min BUN/Creatinine Ratio (6-22) Glucose (70-100) mg/dL Calcium (8.4-10.2) mg/dL Total Bilirubin (0.2-1.3) mg/dL AST (17-59) IU/L ALT (21-72) IU/L Alkaline Phosphatase (38-126) U/L Total Creatine Kinase (55-170) U/L CK-MB (CK-2) CK-MB (CK-2) Rel Index Troponin I (0.01-0.034) ng/mL B-Natriuretic Peptide (<100) Total Protein (6.3-8.2) g/dL Albumin (3.5-5.0) g/dL Globulin (1.7-4.1) g/dL Albumin/Globulin Ratio (1.0-2.8) Lipase (23-300) U/L Urine Opiates Screen (Negative) Ur Oxycodone Screen (Negative) Urine Methadone Screen (Negative) Ur Barbiturates Screen (Negative) U Tricyclic Antidepress (Negative) Ur Phencyclidine Scrn (Negative) Ur Amphetamines Screen (Negative) U Methamphetamines Scrn (Negative) Ur MDMA Scrn (Ecstasy) (Negative) U Benzodiazepines Scrn (Negative) Urine Cocaine Screen (Negative) U Marijuana (THC) Screen (Negative) Ethyl Alcohol 104 mg/dL Point of Care Testing Breathalizer 0.086 Urine Dip Bedside Urine Glucose Negative Bedside Urine Bilirubin - Negative Bedside Urine Ketone - Negative Urine Specific [place] 1.015 Bedside Urine Occult Blood - Negative Bedside Urine pH 6.5 Bedside Urine Protein - Negative Bedside Urine Urobilinogen +/- 1mg Bedside Urine Nitrite - Negative Bedside Urine Leukocytes - Negative Esterase MDM Narrative Medical decision making narrative: This is a 58-year-old male who was signed out to myself by Dr. Murray, patient came in after intentional ingestion and suicidal ideation, patient also has a history alcohol abuse. Patient has not been able to contract for safety. He was seen by social work yesterday and they were working on placement on a voluntary facility. Patient states he still not sure that he can be safe at home, we discussed that [facility] had re-contacted and that would be potentially a bed available and patient expressed interest. [facility] had also requested that we watch patient's blood pressure. Patient did receive his Coreg this morning. His diastolic is still elevated as well as his systolic a little bit. He does not appear to be in lars DTs but would likely benefit from a little bit of Ativan. Patient states he feels a little nauseous. Patient otherwise has been cooperative and calm. He asked if he can continue to sleep. Patient accepted at [facility], blood pressure has been creeping up. Patient had coreg around 7:30am. Given ativan 2mg po, received last dose around 9pm. Plan for transport at 12:30pm for arrival at 2pm. Patient BP elevated but improving after ativan, suspect some withdrawl symptoms although patient is not having any other physician symptoms at this time. Discharge Plan Departure Patient Disposition: Xfer Psychiatric [facility]osp Clinical Impression: Depression with suicidal ideation, Alcohol abuse Discharge Date/Time: 03/18/19 12:15 Interventions: ED Discharge Assessment Last Done: 03/18/19 12:15 Referrals: Lana Rizzo ARNP [Primary Care Provider] -
--- NOTE | 2019-03-17 01:05 | DI.RAD.S_ITS ---
PROCEDURE: XR CHEST 1V INDICATIONS: short of breath TECHNIQUE: One view of the chest was acquired. COMPARISON: [facility], CR, XR CHEST 1 VIEW, 06/23/2018, 17:33. FINDINGS: Surgical changes and devices: None. Lungs and pleura: Lungs are clear. No pleural effusions or pneumothorax. Mediastinum: Mediastinal contours appear normal. Heart size is normal. Bones and chest wall: No suspicious bony lesions. Overlying soft tissues appear unremarkable. IMPRESSION: Normal for age, source of current shortness of breath symptoms is not seen. Dictated by: Edis Breaux M.D. on 03/17/2019 at 8:27 Approved by: Edis Breaux M.D. on 03/17/2019 at 8:28
--- NOTE | 2019-03-17 01:30 | PC.NURSE ---
I attempted to place an IV in the patients left hand. patient states I hate needles, you do not understand. patient pulls back his hand when I try to place the tourniquet on. patient states this is why I did not want to come here. Patient agreed to let me try and place the IV. when I tried to place the IV the patient kept jerking. No success on the IV attempt. While holding pressure and gauze on the patients hand where the angio cath punctured his skin the patient thrashing and moaning. I continued to try and tell the patient that there was no needle and that I was just holding pressure. patient still moaning and thrashing lifted his left leg and kicked the bed almost hitting me. Patient asked to calm down. Patient apologized.
[2019-03-17] MEDS: LORazepam 0.5 MG TABLET 2 MG PO ×2 (01:36→21:25)
--- NOTE | 2019-03-17 01:51 | PC.NURSE ---
Pt was placed in Green paper scrubs, room was cleared for suicidal precautions.
--- NOTE | 2019-03-17 02:03 | PC.NURSE ---
Pt became very agitated when attmepting to start PIV. You don't understand. I hate needles. Emotional support given, de-escalation techniques attempted to aid placement of IV. Pt was writhing in bed, kicked at RN placing IV. No IV placed. Dr Murray notified, 2mg ativan ordered PO for ETOH and agitation. Pt placed in hospital safety attire, extra equipment and potential weapons removed from room. Pt cooperative, apologetic at this time. pharmacy care coordinator called for sitter-- she states she will phone the [employer] pest controller assistant. Pt in high-vis room, remains on cardiac montior. Constant obs for safety.
--- NOTE | 2019-03-17 02:27 | PC.NURSE ---
Pt now sedate after ativan. PIV placed to left hand, pt tolerated well.
[2019-03-17] MEDS: SODIUM CHLORIDE 0.9% 1,000 ML 1000 ML IV ×2 (02:30→10:22)
--- NOTE | 2019-03-17 02:37 | PC.NURSE ---
Paulo Miller now with patient for continuous obs for safety.
[2019-03-17 02:40] LABS: Add Manual Diff / Slide Review NO; Basophils Absolute Auto 100 /uL (0-100); Basophils Percent Auto 0.6 % (0-2); Eosinophils Absolute Auto 100 /uL (0-450); Eosinophils Percent Auto 0.8 % (2-4); Hematocrit 48.4 % (41-53); Hemoglobin 16.5 g/dL (13.5-17.5); Lymphocytes Absolute Auto 3300 /uL (1100-4500); Lymphocytes Percent Auto 36.6 % (25-40); Mean Corpuscular HGB Conc 34.1 % (30-36); Mean Corpuscular Hemoglobin 30.9 PG (26-34); Mean Corpuscular Volume 90.5 fL (80-100); Monocytes Absolute Auto 400 /uL (0-900); Monocytes Percent Auto 4.9 % (3-14); Neutrophils Absolute Auto 5200 /uL (1500-7000); Neutrophils Percent Auto 57.1 % (50-75); Platelet Count 250 X10^3/uL (150-400); Red Blood Cell Count 5.35 X10^6/uL (4.5-5.9); Red Cell Distribution Width 13.6 % (11.6-14.8); White Blood Cell Count 9.1 X10^3/uL (4.5-11.0)
--- NOTE | 2019-03-17 02:44 | PC.NURSE ---
PHOTOGRAPHY MANAGER: pt. is sleeping
--- NOTE | 2019-03-17 02:58 | PC.NURSE ---
BARI pt. is sleeping.
[2019-03-17 03:07] LABS: B Type Natriuretic Peptide < 100 (<100)
[2019-03-17 03:12] LABS: Alanine Aminotransferase 36 IU/L (21-72); Albumin Globulin Ratio 1.4 (1.0-2.8); Alkaline Phosphatase 40 U/L (38-126); Aspartate Aminotransferase 38 IU/L (17-59); Bilirubin Total 0.5 mg/dL (0.2-1.3); Blood Urea Nitrogen 23 mg/dL (9-20); Calcium 8.2 mg/dL (8.4-10.2); Carbon Dioxide 24 mmol/L (22-32); Chloride 104 mmol/L (98-107); Creatine Kinase 53 U/L (55-170); Estimated Glomerular Filt Rate > 60.0 mL/min (>60); Globulin 2.9 g/dL (1.7-4.1); Glucose 105 mg/dL (70-100); HEMOLYSIS 15 (0-50); Lipase 159 U/L (23-300); Potassium 3.9 mmol/L (3.4-5.1); Sodium 141 mmol/L (137-145); Total Protein 6.9 g/dL (6.3-8.2)
--- NOTE | 2019-03-17 03:16 | PC.NURSE ---
PYTHON DJANGO DEVELOPER: pt. is sleeping.
[2019-03-17 03:24] LABS: Troponin I < 0.012 ng/mL (0.01-0.034)
[2019-03-17 03:25] LABS: Ethanol (ETOH) 256 mg/dL
--- NOTE | 2019-03-17 03:30 | PC.NURSE ---
O AND M SUPERVISOR: pt. is sleeping
--- NOTE | 2019-03-17 03:45 | PC.NURSE ---
DEPUTY COMMISSIONER: pt is sleeping
--- NOTE | 2019-03-17 03:46 | ED_ITS ---
HPI - Alcohol <Alison Murray DO - Last Filed: 03/20/19 11:34> General Chief Complaint: Toxicology Problem Stated Complaint: ETOH x5 Days Time Seen by Provider: 03/17/19 01:03 Source: patient and EMS Mode of arrival: EMS Limitations: no limitations History of Present Illness HPI narrative: Patient is a 58-year-old male presenting by EMS with alcohol intoxication and suicidal ideation. He states he has been drinking heavily at least a L of vodka daily for the last few days. He states that he would like to take a bunch of pills in order to kill himself. He says he was previously in a mental health hospital in [facility]. He is here requesting help. Is not sure if he needs detox versus mental Health but he overall feels very sad depressed. He states he does have a history of depression and bipolar. He also complains of chest pain abdominal pain shortness breath no nausea or vomiting. MD complaint: alcohol intoxication Related Data Previous Rx's Medication Instructions Recorded hydrocodone-acetaminophen [Picke[place]] 1 tab PO Q6H PRN #8 tab 01/18/19 meloxicam 7.5 mg PO DAILY PRN #20 tab 01/18/19 Allergies Allergy/AdvReac Type Severity Reaction Status Date / Time No Known Drug Allergies Allergy Verified 01/18/19 07:13 Review of Systems <DO Katrin Vasquez Last Filed: 03/20/19 11:34> Review of Systems ROS Unobtainable: All systems reviewed & are unremarkable except as noted in HPI and below Constitutional Denies chills, Denies fever(s), Denies lethargy and Denies weakness Eyes Denies change in vision, Denies eye discharge, Denies irritation and Denies loss of vision ENT Ears, Nose, Mouth, and Throat: Denies change in voice, Denies neck pain and Denies sore throat Cardiovascular Reports as per HPI, Reports chest pain, Denies diaphoresis, Denies edema, Denies lightheadedness and Denies dyspnea Respiratory Denies cough, Denies dyspnea and Denies wheezing Gastrointestinal Gastrointestinal: Reports abdominal pain, Reports nausea and Denies vomiting Genitourinary Denies hematuria, Denies flank pain, Denies urinary incontinence and Denies urinary urgency Musculoskeletal Denies neck pain Integumentary/Breasts Denies pruritus, Denies erythema, Denies rash and Denies wounds Neurologic Denies loss of vision and Denies weakness Allergic/Immunologic Denies wheezing PFSH <Alison Murray DO - Last Filed: 03/20/19 11:34> Medical History Anxiety (Acute) Bipolar 1 disorder (Acute) Depression (Acute) Hypertension (Acute) Social History Smoking Status: Never smoker Social History Smoking Status: Never smoker Exam <DO Katrin Vasquez Last Filed: 03/20/19 11:34> Initial Vital Signs Initial Vital Signs: Vital Signs Temperature 97.8 F 03/17/19 01:00 Pulse Rate 85 03/17/19 01:00 Respiratory Rate 20 03/17/19 01:00 Blood Pressure 170/100 H 03/17/19 01:00 Pulse Oximetry 98 03/17/19 01:00 GENERAL: Alert sad alcohol on breath HEENT: Head atraumatic,EOMI, pupils reactive, face symmetric, moist mucous membranes CARDIOVASCULAR: Regular rate and rhythm without murmurs, rubs or gallops. RESPIRATORY: Breath sounds equal bilaterally, no wheezes rales or rhonchi. ABDOMEN: Soft, nontender. Normoactive bowel sounds all 4 quadrants. No guarding or rebound. EXTREMITIES: Normal range of motion, no clubbing or edema. Neurovascularly intact NEUROLOGICAL: Alert and oriented x4.Normal gait and speech. SKIN: Warm, dry, no laceration, no petechiae, no rashes or lesions. <Sal Aguilera, DO - Last Filed: 03/18/19 23:30> Initial Vital Signs Initial Vital Signs: Vital Signs Temperature 97.8 F 03/17/19 01:00 Pulse Rate 85 03/17/19 01:00 Respiratory Rate 20 03/17/19 01:00 Blood Pressure 170/100 H 03/17/19 01:00 Pulse Oximetry 98 03/17/19 01:00 <Kary Isaac DO - Last Filed: 03/18/19 17:55> Initial Vital Signs Initial Vital Signs: Vital Signs Temperature 97.8 F 03/17/19 01:00 Pulse Rate 85 03/17/19 01:00 Respiratory Rate 20 03/17/19 01:00 Blood Pressure 170/100 H 03/17/19 01:00 Pulse Oximetry 98 03/17/19 01:00 Course <Alison Murray DO - Last Filed: 03/20/19 11:34> Orders Ordered: Discontinued Medications Carvedilol (Coreg) 6.25 mg PO NOW ONE Stop: 03/17/19 21:14 Last Admin: 03/17/19 21:26 Dose: 6.25 mg Carvedilol (Coreg) 6.25 mg PO NOW ONE Stop: 03/18/19 07:03 Last Admin: 03/18/19 07:13 Dose: 6.25 mg Sodium Chloride (Normal Saline 0.9%) 1,000 mls @ 1,000 mls/hr IV CONT FORTUNATO Last Infusion: 03/17/19 04:34 Dose: 0 mls/hr Admin: 03/17/19 02:30 Dose: 1,000 mls/hr Sodium Chloride (Normal Saline 0.9%) 1,000 mls @ 1,000 mls/hr IV BOLUS ONE Stop: 03/17/19 11:13 Last Infusion: 03/17/19 11:36 Dose: 0 mls/hr Admin: 03/17/19 10:22 Dose: 1,000 mls/hr Thiamine HCl 100 mg/ Dextrose 51 mls @ 204 mls/hr IV NOW ONE Stop: 03/17/19 10:15 Last Infusion: 03/17/19 10:50 Dose: 0 mls/hr Admin: 03/17/19 10:31 Dose: 204 mls/hr Ibuprofen (Advil) 800 mg PO NOW ONE Stop: 03/17/19 06:40 Last Admin: 03/17/19 06:48 Dose: 800 mg Ibuprofen (Advil) 800 mg PO NOW ONE Stop: 03/17/19 20:08 Last Admin: 03/17/19 20:13 Dose: 800 mg Lisinopril (Zestril) 40 mg PO NOW ONE Stop: 03/17/19 21:14 Last Admin: 03/17/19 21:27 Dose: 40 mg Lorazepam (Ativan) 2 mg PO NOW ONE Stop: 03/17/19 01:32 Last Admin: 03/17/19 01:36 Dose: 2 mg Lorazepam (Ativan) 2 mg IV NOW ONE Stop: 03/17/19 14:52 Last Admin: 03/17/19 14:51 Dose: 2 mg Lorazepam (Ativan) 2 mg PO NOW ONE Stop: 03/17/19 21:14 Last Admin: 03/17/19 21:25 Dose: 2 mg Lorazepam (Ativan) 1 mg PO NOW ONE Stop: 03/18/19 09:00 Last Admin: 03/18/19 09:15 Dose: Not Given Lorazepam (Ativan) 2 mg PO NOW ONE Stop: 03/18/19 09:01 Last Admin: 03/18/19 09:04 Dose: 2 mg Ondansetron HCl (Zofran) 4 mg IV Q4HR PRN PRN Reason: Nausea And Vomiting Last Admin: 03/17/19 10:23 Dose: 4 mg Ondansetron HCl (Zofran) 4 mg IV NOW ONE Stop: 03/17/19 20:08 Last Admin: 03/17/19 20:13 Dose: 4 mg Pantoprazole Sodium (Protonix) 40 mg IV NOW ONE Stop: 03/17/19 10:15 Last Admin: 03/17/19 10:23 Dose: 40 mg Vital Signs - 8 hr 03/18/19 10:08 03/18/19 11:02 03/18/19 11:37 Temperature 97.0 F L Pulse Rate 59 L 68 68 Respiratory Rate 14 14 15 Blood Pressure [Right Arm] 171/98 H 166/105 H 177/98 H Pulse Oximetry 95 93 94 <Sal Aguilera, - Last Filed: 03/18/19 23:30> Course Narrative: Patient signed out to me from nighttime provider, Dr. Murray. I performed an independent history and physical exam. Patient is awake, alert and oriented, he has capacity to make his own decisions and understand consequences of his decisions. He continues to have suicidal thoughts and has a plan to overdose on pills. He sees no light at the end of the tunnel and states there is nothing anybody can do to help him. He continues to feel nauseated and is thirsty, fluids and antiemetics have been ordered. [employer] will be down after repeat of EtOH. It is my opinion that patient will need hospitalization and cannot contract for his safety Orders Ordered: Discontinued Medications Carvedilol (Coreg) 6.25 mg PO NOW ONE Stop: 03/17/19 21:14 Last Admin: 03/17/19 21:26 Dose: 6.25 mg Carvedilol (Coreg) 6.25 mg PO NOW ONE Stop: 03/18/19 07:03 Last Admin: 03/18/19 07:13 Dose: 6.25 mg Sodium Chloride (Normal Saline 0.9%) 1,000 mls @ 1,000 mls/hr IV CONT FORTUNATO Last Infusion: 03/17/19 04:34 Dose: 0 mls/hr Admin: 03/17/19 02:30 Dose: 1,000 mls/hr Sodium Chloride (Normal Saline 0.9%) 1,000 mls @ 1,000 mls/hr IV BOLUS ONE Stop: 03/17/19 11:13 Last Infusion: 03/17/19 11:36 Dose: 0 mls/hr Admin: 03/17/19 10:22 Dose: 1,000 mls/hr Thiamine HCl 100 mg/ Dextrose 51 mls @ 204 mls/hr IV NOW ONE Stop: 03/17/19 10:15 Last Infusion: 03/17/19 10:50 Dose: 0 mls/hr Admin: 03/17/19 10:31 Dose: 204 mls/hr Ibuprofen (Advil) 800 mg PO NOW ONE Stop: 03/17/19 06:40 Last Admin: 03/17/19 06:48 Dose: 800 mg Ibuprofen (Advil) 800 mg PO NOW ONE Stop: 03/17/19 20:08 Last Admin: 03/17/19 20:13 Dose: 800 mg Lisinopril (Zestril) 40 mg PO NOW ONE Stop: 03/17/19 21:14 Last Admin: 03/17/19 21:27 Dose: 40 mg Lorazepam (Ativan) 2 mg PO NOW ONE Stop: 03/17/19 01:32 Last Admin: 03/17/19 01:36 Dose: 2 mg Lorazepam (Ativan) 2 mg IV NOW ONE Stop: 03/17/19 14:52 Last Admin: 03/17/19 14:51 Dose: 2 mg Lorazepam (Ativan) 2 mg PO NOW ONE Stop: 03/17/19 21:14 Last Admin: 03/17/19 21:25 Dose: 2 mg Lorazepam (Ativan) 1 mg PO NOW ONE Stop: 03/18/19 09:00 Last Admin: 03/18/19 09:15 Dose: Not Given Lorazepam (Ativan) 2 mg PO NOW ONE Stop: 03/18/19 09:01 Last Admin: 03/18/19 09:04 Dose: 2 mg Ondansetron HCl (Zofran) 4 mg IV Q4HR PRN PRN Reason: Nausea And Vomiting Last Admin: 03/17/19 10:23 Dose: 4 mg Ondansetron HCl (Zofran) 4 mg IV NOW ONE Stop: 03/17/19 20:08 Last Admin: 03/17/19 20:13 Dose: 4 mg Pantoprazole Sodium (Protonix) 40 mg IV NOW ONE Stop: 03/17/19 10:15 Last Admin: 03/17/19 10:23 Dose: 40 mg Vital Signs - 8 hr 03/18/19 10:08 03/18/19 11:02 03/18/19 11:37 Temperature 97.0 F L Pulse Rate 59 L 68 68 Respiratory Rate 14 14 15 Blood Pressure [Right Arm] 171/98 H 166/105 H 177/98 H Pulse Oximetry 95 93 94 <Kary Isaac, - Last Filed: 03/18/19 17:55> Orders Ordered: Discontinued Medications Carvedilol (Coreg) 6.25 mg PO NOW ONE Stop: 03/17/19 21:14 Last Admin: 03/17/19 21:26 Dose: 6.25 mg Carvedilol (Coreg) 6.25 mg PO NOW ONE Stop: 03/18/19 07:03 Last Admin: 03/18/19 07:13 Dose: 6.25 mg Sodium Chloride (Normal Saline 0.9%) 1,000 mls @ 1,000 mls/hr IV CONT FORTUNATO Last Infusion: 03/17/19 04:34 Dose: 0 mls/hr Admin: 03/17/19 02:30 Dose: 1,000 mls/hr Sodium Chloride (Normal Saline 0.9%) 1,000 mls @ 1,000 mls/hr IV BOLUS ONE Stop: 03/17/19 11:13 Last Infusion: 03/17/19 11:36 Dose: 0 mls/hr Admin: 03/17/19 10:22 Dose: 1,000 mls/hr Thiamine HCl 100 mg/ Dextrose 51 mls @ 204 mls/hr IV NOW ONE Stop: 03/17/19 10:15 Last Infusion: 03/17/19 10:50 Dose: 0 mls/hr Admin: 03/17/19 10:31 Dose: 204 mls/hr Ibuprofen (Advil) 800 mg PO NOW ONE Stop: 03/17/19 06:40 Last Admin: 03/17/19 06:48 Dose: 800 mg Ibuprofen (Advil) 800 mg PO NOW ONE Stop: 03/17/19 20:08 Last Admin: 03/17/19 20:13 Dose: 800 mg Lisinopril (Zestril) 40 mg PO NOW ONE Stop: 03/17/19 21:14 Last Admin: 03/17/19 21:27 Dose: 40 mg Lorazepam (Ativan) 2 mg PO NOW ONE Stop: 03/17/19 01:32 Last Admin: 03/17/19 01:36 Dose: 2 mg Lorazepam (Ativan) 2 mg IV NOW ONE Stop: 03/17/19 14:52 Last Admin: 03/17/19 14:51 Dose: 2 mg Lorazepam (Ativan) 2 mg PO NOW ONE Stop: 03/17/19 21:14 Last Admin: 03/17/19 21:25 Dose: 2 mg Lorazepam (Ativan) 1 mg PO NOW ONE Stop: 03/18/19 09:00 Last Admin: 03/18/19 09:15 Dose: Not Given Lorazepam (Ativan) 2 mg PO NOW ONE Stop: 03/18/19 09:01 Last Admin: 03/18/19 09:04 Dose: 2 mg Ondansetron HCl (Zofran) 4 mg IV Q4HR PRN PRN Reason: Nausea And Vomiting Last Admin: 03/17/19 10:23 Dose: 4 mg Ondansetron HCl (Zofran) 4 mg IV NOW ONE Stop: 03/17/19 20:08 Last Admin: 03/17/19 20:13 Dose: 4 mg Pantoprazole Sodium (Protonix) 40 mg IV NOW ONE Stop: 03/17/19 10:15 Last Admin: 03/17/19 10:23 Dose: 40 mg Vital Signs - 8 hr 03/18/19 10:08 03/18/19 11:02 03/18/19 11:37 Temperature 97.0 F L Pulse Rate 59 L 68 68 Respiratory Rate 14 14 15 Blood Pressure [Right Arm] 171/98 H 166/105 H 177/98 H Pulse Oximetry 95 93 94 MDM - Alcohol <Alison Murray DO - Last Filed: 03/20/19 11:34> Lab Data Attestation: I reviewed the patient's lab results. Result diagrams: 03/17/19 02:28 03/17/19 02:55 Labs: Lab Results 03/17/19 03/17/19 03/17/19 Range/Units 02:28 02:55 06:24 WBC 9.1 (4.5-11.0) X10^3/uL RBC 5.35 (4.5-5.9) X10^6/uL Hgb 16.5 (13.5-17.5) g/dL Hct 48.4 (41-53) % MCV 90.5 (80-100) fL MCH 30.9 (26-34) PG MCHC 34.1 (30-36) % RDW 13.6 (11.6-14.8) % Plt Count 250 (150-400) X10^3/uL Neut % (Auto) 57.1 (50-75) % Lymph % (Auto) 36.6 (25-40) % [place] % (Auto) 4.9 (3-14) % Eos % (Auto) 0.8 L (2-4) % Baso % (Auto) 0.6 (0-2) % Neut # (Auto) 5200 (0287-0631) /uL Lymph # (Auto) 3300 (8313-5321) /uL [place] # (Auto) 400 (0-900) /uL Eos # (Auto) 100 (0-450) /uL Baso # (Auto) 100 (0-100) /uL Sodium 141 (137-145) mmol/L Potassium 3.9 (3.4-5.1) mmol/L Chloride 104 (98-107) mmol/L Carbon Dioxide 24 (22-32) mmol/L BUN 23 H (9-20) mg/dL Creatinine 1.00 (0.66-1.25) mg/dL Estimated GFR > 60.0 (>60) mL/min BUN/Creatinine Ratio 23.0 H (6-22) Glucose 105 H (70-100) mg/dL Calcium 8.2 L (8.4-10.2) mg/dL Total Bilirubin 0.5 (0.2-1.3) mg/dL AST 38 (17-59) IU/L ALT 36 (21-72) IU/L Alkaline Phosphatase 40 (38-126) U/L Total Creatine Kinase 53 L (55-170) U/L CK-MB (CK-2) TNP CK-MB (CK-2) Rel Index TNP Troponin I < 0.012 < 0.012 (0.01-0.034) ng/mL B-Natriuretic Peptide < 100 (<100) Total Protein 6.9 (6.3-8.2) g/dL Albumin 4.0 (3.5-5.0) g/dL Globulin 2.9 (1.7-4.1) g/dL Albumin/Globulin Ratio 1.4 (1.0-2.8) Lipase 159 (23-300) U/L Urine Opiates Screen (Negative) Ur Oxycodone Screen (Negative) Urine Methadone Screen (Negative) Ur Barbiturates Screen (Negative) U Tricyclic Antidepress (Negative) Ur Phencyclidine Scrn (Negative) Ur Amphetamines Screen (Negative) U Methamphetamines Scrn (Negative) Ur MDMA Scrn (Ecstasy) (Negative) U Benzodiazepines Scrn (Negative) Urine Cocaine Screen (Negative) U Marijuana (THC) Screen (Negative) Ethyl Alcohol 256 mg/dL 03/17/19 03/17/19 03/17/19 Range/Units 06:24 06:43 11:03 WBC (4.5-11.0) X10^3/uL RBC (4.5-5.9) X10^6/uL Hgb (13.5-17.5) g/dL Hct (41-53) % MCV (80-100) fL MCH (26-34) PG MCHC (30-36) % RDW (11.6-14.8) % Plt Count (150-400) X10^3/uL Neut % (Auto) (50-75) % Lymph % (Auto) (25-40) % [place] % (Auto) (3-14) % Eos % (Auto) (2-4) % Baso % (Auto) (0-2) % Neut # (Auto) (6156-3982) /uL Lymph # (Auto) (0402-3369) /uL [place] # (Auto) (0-900) /uL Eos # (Auto) (0-450) /uL Baso # (Auto) (0-100) /uL Sodium (137-145) mmol/L Potassium (3.4-5.1) mmol/L Chloride (98-107) mmol/L Carbon Dioxide (22-32) mmol/L BUN (9-20) mg/dL Creatinine (0.66-1.25) mg/dL Estimated GFR (>60) mL/min BUN/Creatinine Ratio (6-22) Glucose (70-100) mg/dL Calcium (8.4-10.2) mg/dL Total Bilirubin (0.2-1.3) mg/dL AST (17-59) IU/L ALT (21-72) IU/L Alkaline Phosphatase (38-126) U/L Total Creatine Kinase (55-170) U/L CK-MB (CK-2) CK-MB (CK-2) Rel Index Troponin I (0.01-0.034) ng/mL B-Natriuretic Peptide (<100) Total Protein (6.3-8.2) g/dL Albumin (3.5-5.0) g/dL Globulin (1.7-4.1) g/dL Albumin/Globulin Ratio (1.0-2.8) Lipase (23-300) U/L Urine Opiates Screen Negative (Negative) Ur Oxycodone Screen Negative (Negative) Urine Methadone Screen Negative (Negative) Ur Barbiturates Screen Negative (Negative) U Tricyclic Antidepress Negative (Negative) Ur Phencyclidine Scrn Negative (Negative) Ur Amphetamines Screen Positive H (Negative) U Methamphetamines Scrn Positive H (Negative) Ur MDMA Scrn (Ecstasy) Negative (Negative) U Benzodiazepines Scrn Positive H (Negative) Urine Cocaine Screen Negative (Negative) U Marijuana (THC) Screen Positive H (Negative) Ethyl Alcohol 224 150 mg/dL 03/17/19 Range/Units 14:01 WBC (4.5-11.0) X10^3/uL RBC (4.5-5.9) X10^6/uL Hgb (13.5-17.5) g/dL Hct (41-53) % MCV (80-100) fL MCH (26-34) PG MCHC (30-36) % RDW (11.6-14.8) % Plt Count (150-400) X10^3/uL Neut % (Auto) (50-75) % Lymph % (Auto) (25-40) % [place] % (Auto) (3-14) % Eos % (Auto) (2-4) % Baso % (Auto) (0-2) % Neut # (Auto) (4685-4199) /uL Lymph # (Auto) (2594-5796) /uL [place] # (Auto) (0-900) /uL Eos # (Auto) (0-450) /uL Baso # (Auto) (0-100) /uL Sodium (137-145) mmol/L Potassium (3.4-5.1) mmol/L Chloride (98-107) mmol/L Carbon Dioxide (22-32) mmol/L BUN (9-20) mg/dL Creatinine (0.66-1.25) mg/dL Estimated GFR (>60) mL/min BUN/Creatinine Ratio (6-22) Glucose (70-100) mg/dL Calcium (8.4-10.2) mg/dL Total Bilirubin (0.2-1.3) mg/dL AST (17-59) IU/L ALT (21-72) IU/L Alkaline Phosphatase (38-126) U/L Total Creatine Kinase (55-170) U/L CK-MB (CK-2) CK-MB (CK-2) Rel Index Troponin I (0.01-0.034) ng/mL B-Natriuretic Peptide (<100) Total Protein (6.3-8.2) g/dL Albumin (3.5-5.0) g/dL Globulin (1.7-4.1) g/dL Albumin/Globulin Ratio (1.0-2.8) Lipase (23-300) U/L Urine Opiates Screen (Negative) Ur Oxycodone Screen (Negative) Urine Methadone Screen (Negative) Ur Barbiturates Screen (Negative) U Tricyclic Antidepress (Negative) Ur Phencyclidine Scrn (Negative) Ur Amphetamines Screen (Negative) U Methamphetamines Scrn (Negative) Ur MDMA Scrn (Ecstasy) (Negative) U Benzodiazepines Scrn (Negative) Urine Cocaine Screen (Negative) U Marijuana (THC) Screen (Negative) Ethyl Alcohol 104 mg/dL Point of Care Testing Breathalizer 0.086 Urine Dip Bedside Urine Glucose Negative Bedside Urine Bilirubin - Negative Bedside Urine Ketone - Negative Urine Specific [place] 1.015 Bedside Urine Occult Blood - Negative Bedside Urine pH 6.5 Bedside Urine Protein - Negative Bedside Urine Urobilinogen +/- 1mg Bedside Urine Nitrite - Negative Bedside Urine Leukocytes - Negative Esterase Imaging Data Chest x-ray: Attestation: I personally reviewed and interpreted this imaging study as follows: My impression: No acute cardiopulmonary process ECG Data Attestation: I personally reviewed and interpreted this ECG as follows: Prior ECG tracings: available for review Interpretation: Normal sinus rhythm rate 83 P are interval [address] changes no T-wave inversions priors to compare MDM Narrative Medical decision making narrative: 6:30 a.m. patient is awake alert. His I have re-evaluated him. He says he basically does not care anymore. He wants medicine for his headache which he is offered Tylenol or ibuprofen for for which he refuses. Social work consult has been placed. I do not feel that patient is trust worthy he does not seem to be able to contract for safety. He does not have a good support system. He is very vague in his responses. Repeat breathalyzer is 86 at 7:00 a.m. 6:00 p.m.. patient signed out to me by day should provider. Awaiting psychiatric placement. [facility] detox [facility] did call they would like his blood pressure better controlled before they accept him and will re-evaluate him in morning. Patient given blood pressure medication [facility] [place] to help him sleep. At this time no other facilities have beds. <Sal Aguilera, DO - Last Filed: 03/18/19 23:30> Lab Data Labs: Lab Results 03/17/19 03/17/19 03/17/19 Range/Units 02:28 02:55 06:24 WBC 9.1 (4.5-11.0) X10^3/uL RBC 5.35 (4.5-5.9) X10^6/uL Hgb 16.5 (13.5-17.5) g/dL Hct 48.4 (41-53) % MCV 90.5 (80-100) fL MCH 30.9 (26-34) PG MCHC 34.1 (30-36) % RDW 13.6 (11.6-14.8) % Plt Count 250 (150-400) X10^3/uL Neut % (Auto) 57.1 (50-75) % Lymph % (Auto) 36.6 (25-40) % [place] % (Auto) 4.9 (3-14) % Eos % (Auto) 0.8 L (2-4) % Baso % (Auto) 0.6 (0-2) % Neut # (Auto) 5200 (2488-9270) /uL Lymph # (Auto) 3300 (5124-6137) /uL [place] # (Auto) 400 (0-900) /uL Eos # (Auto) 100 (0-450) /uL Baso # (Auto) 100 (0-100) /uL Sodium 141 (137-145) mmol/L Potassium 3.9 (3.4-5.1) mmol/L Chloride 104 (98-107) mmol/L Carbon Dioxide 24 (22-32) mmol/L BUN 23 H (9-20) mg/dL Creatinine 1.00 (0.66-1.25) mg/dL Estimated GFR > 60.0 (>60) mL/min BUN/Creatinine Ratio 23.0 H (6-22) Glucose 105 H (70-100) mg/dL Calcium 8.2 L (8.4-10.2) mg/dL Total Bilirubin 0.5 (0.2-1.3) mg/dL AST 38 (17-59) IU/L ALT 36 (21-72) IU/L Alkaline Phosphatase 40 (38-126) U/L Total Creatine Kinase 53 L (55-170) U/L CK-MB (CK-2) TNP CK-MB (CK-2) Rel Index TNP Troponin I < 0.012 < 0.012 (0.01-0.034) ng/mL B-Natriuretic Peptide < 100 (<100) Total Protein 6.9 (6.3-8.2) g/dL Albumin 4.0 (3.5-5.0) g/dL Globulin 2.9 (1.7-4.1) g/dL Albumin/Globulin Ratio 1.4 (1.0-2.8) Lipase 159 (23-300) U/L Urine Opiates Screen (Negative) Ur Oxycodone Screen (Negative) Urine Methadone Screen (Negative) Ur Barbiturates Screen (Negative) U Tricyclic Antidepress (Negative) Ur Phencyclidine Scrn (Negative) Ur Amphetamines Screen (Negative) U Methamphetamines Scrn (Negative) Ur MDMA Scrn (Ecstasy) (Negative) U Benzodiazepines Scrn (Negative) Urine Cocaine Screen (Negative) U Marijuana (THC) Screen (Negative) Ethyl Alcohol 256 mg/dL 03/17/19 03/17/19 03/17/19 Range/Units 06:24 06:43 11:03 WBC (4.5-11.0) X10^3/uL RBC (4.5-5.9) X10^6/uL Hgb (13.5-17.5) g/dL Hct (41-53) % MCV (80-100) fL MCH (26-34) PG MCHC (30-36) % RDW (11.6-14.8) % Plt Count (150-400) X10^3/uL Neut % (Auto) (50-75) % Lymph % (Auto) (25-40) % [place] % (Auto) (3-14) % Eos % (Auto) (2-4) % Baso % (Auto) (0-2) % Neut # (Auto) (8615-2821) /uL Lymph # (Auto) (3711-4937) /uL [place] # (Auto) (0-900) /uL Eos # (Auto) (0-450) /uL Baso # (Auto) (0-100) /uL Sodium (137-145) mmol/L Potassium (3.4-5.1) mmol/L Chloride (98-107) mmol/L Carbon Dioxide (22-32) mmol/L BUN (9-20) mg/dL Creatinine (0.66-1.25) mg/dL Estimated GFR (>60) mL/min BUN/Creatinine Ratio (6-22) Glucose (70-100) mg/dL Calcium (8.4-10.2) mg/dL Total Bilirubin (0.2-1.3) mg/dL AST (17-59) IU/L ALT (21-72) IU/L Alkaline Phosphatase (38-126) U/L Total Creatine Kinase (55-170) U/L CK-MB (CK-2) CK-MB (CK-2) Rel Index Troponin I (0.01-0.034) ng/mL B-Natriuretic Peptide (<100) Total Protein (6.3-8.2) g/dL Albumin (3.5-5.0) g/dL Globulin (1.7-4.1) g/dL Albumin/Globulin Ratio (1.0-2.8) Lipase (23-300) U/L Urine Opiates Screen Negative (Negative) Ur Oxycodone Screen Negative (Negative) Urine Methadone Screen Negative (Negative) Ur Barbiturates Screen Negative (Negative) U Tricyclic Antidepress Negative (Negative) Ur Phencyclidine Scrn Negative (Negative) Ur Amphetamines Screen Positive H (Negative) U Methamphetamines Scrn Positive H (Negative) Ur MDMA Scrn (Ecstasy) Negative (Negative) U Benzodiazepines Scrn Positive H (Negative) Urine Cocaine Screen Negative (Negative) U Marijuana (THC) Screen Positive H (Negative) Ethyl Alcohol 224 150 mg/dL 03/17/19 Range/Units 14:01 WBC (4.5-11.0) X10^3/uL RBC (4.5-5.9) X10^6/uL Hgb (13.5-17.5) g/dL Hct (41-53) % MCV (80-100) fL MCH (26-34) PG MCHC (30-36) % RDW (11.6-14.8) % Plt Count (150-400) X10^3/uL Neut % (Auto) (50-75) % Lymph % (Auto) (25-40) % [place] % (Auto) (3-14) % Eos % (Auto) (2-4) % Baso % (Auto) (0-2) % Neut # (Auto) (7554-5222) /uL Lymph # (Auto) (1095-1026) /uL [place] # (Auto) (0-900) /uL Eos # (Auto) (0-450) /uL Baso # (Auto) (0-100) /uL Sodium (137-145) mmol/L Potassium (3.4-5.1) mmol/L Chloride (98-107) mmol/L Carbon Dioxide (22-32) mmol/L BUN (9-20) mg/dL Creatinine (0.66-1.25) mg/dL Estimated GFR (>60) mL/min BUN/Creatinine Ratio (6-22) Glucose (70-100) mg/dL Calcium (8.4-10.2) mg/dL Total Bilirubin (0.2-1.3) mg/dL AST (17-59) IU/L ALT (21-72) IU/L Alkaline Phosphatase (38-126) U/L Total Creatine Kinase (55-170) U/L CK-MB (CK-2) CK-MB (CK-2) Rel Index Troponin I (0.01-0.034) ng/mL B-Natriuretic Peptide (<100) Total Protein (6.3-8.2) g/dL Albumin (3.5-5.0) g/dL Globulin (1.7-4.1) g/dL Albumin/Globulin Ratio (1.0-2.8) Lipase (23-300) U/L Urine Opiates Screen (Negative) Ur Oxycodone Screen (Negative) Urine Methadone Screen (Negative) Ur Barbiturates Screen (Negative) U Tricyclic Antidepress (Negative) Ur Phencyclidine Scrn (Negative) Ur Amphetamines Screen (Negative) U Methamphetamines Scrn (Negative) Ur MDMA Scrn (Ecstasy) (Negative) U Benzodiazepines Scrn (Negative) Urine Cocaine Screen (Negative) U Marijuana (THC) Screen (Negative) Ethyl Alcohol 104 mg/dL Point of Care Testing Breathalizer 0.086 Urine Dip Bedside Urine Glucose Negative Bedside Urine Bilirubin - Negative Bedside Urine Ketone - Negative Urine Specific [place] 1.015 Bedside Urine Occult Blood - Negative Bedside Urine pH 6.5 Bedside Urine Protein - Negative Bedside Urine Urobilinogen +/- 1mg Bedside Urine Nitrite - Negative Bedside Urine Leukocytes - Negative Esterase <Kary Isaac, - Last Filed: 03/18/19 17:55> Lab Data Attestation: I reviewed the patient's lab results. Labs: Lab Results 03/17/19 03/17/19 03/17/19 Range/Units 02:28 02:55 06:24 WBC 9.1 (4.5-11.0) X10^3/uL RBC 5.35 (4.5-5.9) X10^6/uL Hgb 16.5 (13.5-17.5) g/dL Hct 48.4 (41-53) % MCV 90.5 (80-100) fL MCH 30.9 (26-34) PG MCHC 34.1 (30-36) % RDW 13.6 (11.6-14.8) % Plt Count 250 (150-400) X10^3/uL Neut % (Auto) 57.1 (50-75) % Lymph % (Auto) 36.6 (25-40) % [place] % (Auto) 4.9 (3-14) % Eos % (Auto) 0.8 L (2-4) % Baso % (Auto) 0.6 (0-2) % Neut # (Auto) 5200 (6163-8556) /uL Lymph # (Auto) 3300 (9486-4706) /uL [place] # (Auto) 400 (0-900) /uL Eos # (Auto) 100 (0-450) /uL Baso # (Auto) 100 (0-100) /uL Sodium 141 (137-145) mmol/L Potassium 3.9 (3.4-5.1) mmol/L Chloride 104 (98-107) mmol/L Carbon Dioxide 24 (22-32) mmol/L BUN 23 H (9-20) mg/dL Creatinine 1.00 (0.66-1.25) mg/dL Estimated GFR > 60.0 (>60) mL/min BUN/Creatinine Ratio 23.0 H (6-22) Glucose 105 H (70-100) mg/dL Calcium 8.2 L (8.4-10.2) mg/dL Total Bilirubin 0.5 (0.2-1.3) mg/dL AST 38 (17-59) IU/L ALT 36 (21-72) IU/L Alkaline Phosphatase 40 (38-126) U/L Total Creatine Kinase 53 L (55-170) U/L CK-MB (CK-2) TNP CK-MB (CK-2) Rel Index TNP Troponin I < 0.012 < 0.012 (0.01-0.034) ng/mL B-Natriuretic Peptide < 100 (<100) Total Protein 6.9 (6.3-8.2) g/dL Albumin 4.0 (3.5-5.0) g/dL Globulin 2.9 (1.7-4.1) g/dL Albumin/Globulin Ratio 1.4 (1.0-2.8) Lipase 159 (23-300) U/L Urine Opiates Screen (Negative) Ur Oxycodone Screen (Negative) Urine Methadone Screen (Negative) Ur Barbiturates Screen (Negative) U Tricyclic Antidepress (Negative) Ur Phencyclidine Scrn (Negative) Ur Amphetamines Screen (Negative) U Methamphetamines Scrn (Negative) Ur MDMA Scrn (Ecstasy) (Negative) U Benzodiazepines Scrn (Negative) Urine Cocaine Screen (Negative) U Marijuana (THC) Screen (Negative) Ethyl Alcohol 256 mg/dL 03/17/19 03/17/19 03/17/19 Range/Units 06:24 06:43 11:03 WBC (4.5-11.0) X10^3/uL RBC (4.5-5.9) X10^6/uL Hgb (13.5-17.5) g/dL Hct (41-53) % MCV (80-100) fL MCH (26-34) PG MCHC (30-36) % RDW (11.6-14.8) % Plt Count (150-400) X10^3/uL Neut % (Auto) (50-75) % Lymph % (Auto) (25-40) % [place] % (Auto) (3-14) % Eos % (Auto) (2-4) % Baso % (Auto) (0-2) % Neut # (Auto) (3046-6609) /uL Lymph # (Auto) (5189-9505) /uL [place] # (Auto) (0-900) /uL Eos # (Auto) (0-450) /uL Baso # (Auto) (0-100) /uL Sodium (137-145) mmol/L Potassium (3.4-5.1) mmol/L Chloride (98-107) mmol/L Carbon Dioxide (22-32) mmol/L BUN (9-20) mg/dL Creatinine (0.66-1.25) mg/dL Estimated GFR (>60) mL/min BUN/Creatinine Ratio (6-22) Glucose (70-100) mg/dL Calcium (8.4-10.2) mg/dL Total Bilirubin (0.2-1.3) mg/dL AST (17-59) IU/L ALT (21-72) IU/L Alkaline Phosphatase (38-126) U/L Total Creatine Kinase (55-170) U/L CK-MB (CK-2) CK-MB (CK-2) Rel Index Troponin I (0.01-0.034) ng/mL B-Natriuretic Peptide (<100) Total Protein (6.3-8.2) g/dL Albumin (3.5-5.0) g/dL Globulin (1.7-4.1) g/dL Albumin/Globulin Ratio (1.0-2.8) Lipase (23-300) U/L Urine Opiates Screen Negative (Negative) Ur Oxycodone Screen Negative (Negative) Urine Methadone Screen Negative (Negative) Ur Barbiturates Screen Negative (Negative) U Tricyclic Antidepress Negative (Negative) Ur Phencyclidine Scrn Negative (Negative) Ur Amphetamines Screen Positive H (Negative) U Methamphetamines Scrn Positive H (Negative) Ur MDMA Scrn (Ecstasy) Negative (Negative) U Benzodiazepines Scrn Positive H (Negative) Urine Cocaine Screen Negative (Negative) U Marijuana (THC) Screen Positive H (Negative) Ethyl Alcohol 224 150 mg/dL 03/17/19 Range/Units 14:01 WBC (4.5-11.0) X10^3/uL RBC (4.5-5.9) X10^6/uL Hgb (13.5-17.5) g/dL Hct (41-53) % MCV (80-100) fL MCH (26-34) PG MCHC (30-36) % RDW (11.6-14.8) % Plt Count (150-400) X10^3/uL Neut % (Auto) (50-75) % Lymph % (Auto) (25-40) % [place] % (Auto) (3-14) % Eos % (Auto) (2-4) % Baso % (Auto) (0-2) % Neut # (Auto) (2433-1693) /uL Lymph # (Auto) (2817-7854) /uL [place] # (Auto) (0-900) /uL Eos # (Auto) (0-450) /uL Baso # (Auto) (0-100) /uL Sodium (137-145) mmol/L Potassium (3.4-5.1) mmol/L Chloride (98-107) mmol/L Carbon Dioxide (22-32) mmol/L BUN (9-20) mg/dL Creatinine (0.66-1.25) mg/dL Estimated GFR (>60) mL/min BUN/Creatinine Ratio (6-22) Glucose (70-100) mg/dL Calcium (8.4-10.2) mg/dL Total Bilirubin (0.2-1.3) mg/dL AST (17-59) IU/L ALT (21-72) IU/L Alkaline Phosphatase (38-126) U/L Total Creatine Kinase (55-170) U/L CK-MB (CK-2) CK-MB (CK-2) Rel Index Troponin I (0.01-0.034) ng/mL B-Natriuretic Peptide (<100) Total Protein (6.3-8.2) g/dL Albumin (3.5-5.0) g/dL Globulin (1.7-4.1) g/dL Albumin/Globulin Ratio (1.0-2.8) Lipase (23-300) U/L Urine Opiates Screen (Negative) Ur Oxycodone Screen (Negative) Urine Methadone Screen (Negative) Ur Barbiturates Screen (Negative) U Tricyclic Antidepress (Negative) Ur Phencyclidine Scrn (Negative) Ur Amphetamines Screen (Negative) U Methamphetamines Scrn (Negative) Ur MDMA Scrn (Ecstasy) (Negative) U Benzodiazepines Scrn (Negative) Urine Cocaine Screen (Negative) U Marijuana (THC) Screen (Negative) Ethyl Alcohol 104 mg/dL Point of Care Testing Breathalizer 0.086 Urine Dip Bedside Urine Glucose Negative Bedside Urine Bilirubin - Negative Bedside Urine Ketone - Negative Urine Specific [place] 1.015 Bedside Urine Occult Blood - Negative Bedside Urine pH 6.5 Bedside Urine Protein - Negative Bedside Urine Urobilinogen +/- 1mg Bedside Urine Nitrite - Negative Bedside Urine Leukocytes - Negative Esterase MDM Narrative Medical decision making narrative: This is a 58-year-old male who was signed out to myself by Dr. Murray, patient came in after intentional ingestion and suicidal ideation, patient also has a history alcohol abuse. Patient has not been able to contract for safety. He was seen by social work yesterday and they were working on placement on a voluntary facility. Patient states he still not sure that he can be safe at home, we discussed that [facility] had re-contacted and that would be potentially a bed available and patient expressed interest. [employer] had also requested that we watch patient's blood pressure. Patient did receive his Coreg this morning. His diastolic is still elevated as well as his systolic a little bit. He does not appear to be in lars DTs but would likely benefit from a little bit of Ativan. Patient states he feels a little nauseous. Patient otherwise has been cooperative and calm. He asked if he can continue to sleep. Patient accepted at [facility], blood pressure has been creeping up. Patient had coreg around 7:30am. Given ativan 2mg po, received last dose around 9pm. Plan for transport at 12:30pm for arrival at 2pm. Patient BP elevated but improving after ativan, suspect some withdrawl symptoms although patient is not having any other physician symptoms at this time. Discharge Plan Departure Patient Disposition: Xfer Psychiatric Hosp Clinical Impression: Depression with suicidal ideation, Alcohol abuse Discharge Date/Time: 03/18/19 12:15 Interventions: ED Discharge Assessment Last Done: 03/18/19 12:15 Referrals: Lana Rizzo ARNP [Primary Care Provider] -
--- NOTE | 2019-03-17 04:01 | PC.NURSE ---
IT RISK ADVISOR: pt. is drifting in and out of sleep.
--- NOTE | 2019-03-17 04:15 | PC.NURSE ---
PAPER BALER: pt. is sleeping
--- NOTE | 2019-03-17 05:00 | PC.NURSE ---
FILM LIBRARY CLERK: pt. is sleeping
--- NOTE | 2019-03-17 05:15 | PC.NURSE ---
HOSPITAL CHIEF FINANCIAL OFFICER: pt is sleeping.
--- NOTE | 2019-03-17 05:30 | PC.NURSE ---
DATA VISUALIZATION DEVELOPER: pt. is sleeping
--- NOTE | 2019-03-17 05:46 | PC.NURSE ---
SALT WASHER HARVESTING STATION: pt. is sleeping.
--- NOTE | 2019-03-17 06:00 | PC.NURSE ---
SENIOR COST ACCOUNTANT: pt. is sleeping
--- NOTE | 2019-03-17 06:15 | PC.NURSE ---
MOBILE LAB TECHNICIAN: pt. is sleeping.
--- NOTE | 2019-03-17 06:39 | PC.NURSE ---
Pt awake. Lab was able to draw blood with assist-- pt initially resistant. When asked if he still feels suicidal, pt said, I just want to end it all. Pt in high-vis room, sitter for safety.
--- NOTE | 2019-03-17 06:47 | PC.NURSE ---
ASSEMBLY MACHINE TOOL SETTER: pt. is sitting up in bed.
[2019-03-17 06:48] LABS: Ethanol (ETOH) 224 mg/dL
[2019-03-17] MEDS: IBUPROFEN 400 MG TABLET 800 MG PO ×2 (06:48→20:13)
[2019-03-17 06:54] LABS: Urine Amphetamines Positive (Negative); Urine Barbiturates Negative (Negative); Urine Benzodiazepines Positive (Negative); Urine Cocaine Negative (Negative); Urine MDMA Negative (Negative); Urine Methamphetamines Positive (Negative); Urine Morphine/Opi cutoff 2000 Negative (Negative); Urine Phencyclidine Negative (Negative); Urine Tetrahydrocannabinol Positive (Negative)
[2019-03-17 06:55] LABS: Urine Methadone Negative (Negative); Urine Oxycodone Negative (Negative); Urine Tricyclic Antidepressant Negative (Negative)
--- NOTE | 2019-03-17 07:00 | PC.NURSE ---
SPLIT AND DRUM ROOM SUPERVISOR: pt. is sleeping
[2019-03-17 07:01] LABS: Troponin I < 0.012 ng/mL (0.01-0.034)
--- NOTE | 2019-03-17 07:12 | PC.NURSE ---
Patient Safety Monitoring 0715- pt. is calm and sleeping 0745- pt. is awake and sitting up in bed eating breakfast, he is pleasant 0815-Pt. is right side lying sleeping, calm, cooperative 0845- 15- 9 Vitals 0730 BP:155/91, P:79, O2:99, R:17 0800 BP: 164/93 P:81, O2:98. R:17 0830 BP: 184/99 P: 99. O2:99, R: 16 0900
--- NOTE | 2019-03-17 07:12 | PC.NURSE ---
Sleeping in room. Call to DIESEL POWERPLANT MECHANIC HELPER for consult.
--- NOTE | 2019-03-17 09:18 | CM.SWNOTE ---
Addendum entered by CHRISTINA Nogueira 03/17/19 15:36: ADD: SW completed bedside assessment (see other CD/MH assess note from today) and determined that pt needs Detox prior to voluntary MH placement. LYNN contacted following Detox facilities: [facility]- no longer does detox [facility]- does not take [facility]- does not take [facility]- will take [facility] but need preauth first and that can take up to 5 days? Detox facilities to try that take [facility]: [facility] SW left email and message for MEDICINE TECHNOLOGISTAbimael Wetzel to continue finding placement for the pt when she gets on shift at 1640 today and updated RN. BF Original Note: SW Consult for pt who came in with intoxication and suicidal ideation. LYNN checked in with RN and MD, waiting for another BAL prior to bedside assessment as pt's BAL this morning around 0700 was .224. SW to complete bedside assessment when pt more medically appropriate to participate in mental health assessment after next BAL around 1100. CHRISTINA Nogueira
[2019-03-17] MEDS: ONDANSETRON 4 MG/2 ML INJ IV ×2 (10:23→20:13)
[2019-03-17] MEDS: PANTOPRAZOLE 40 MG VIAL IV (10:23)
--- NOTE | 2019-03-17 10:23 | PC.NURSE ---
Pt. got up to restroom, asked me Do you drink? I think he was hoping to relate to someone. pt. is now back in bed- ambulated well, stated he was a little light headed upon first standing. Nurse is hanging fluids and in rm with pt.
[2019-03-17] MEDS: THIAMINE 100 MG in DEXTROSE 5 % IN WATER 50 ML 204 ML IV (10:31)
--- NOTE | 2019-03-17 11:04 | PC.NURSE ---
Pt had labs drawn, was compliant and calm. auto glass technician stated that he got a little agitated due to him not liking needles, but that he was agreeable to getting it done. Pt is calm and laying in bed with call light on the rail.
--- NOTE | 2019-03-17 11:21 | PC.NURSE ---
pt given pillow under his left arm due to him stating theres discomfort from his IV
[2019-03-17 11:22] LABS: Ethanol (ETOH) 150 mg/dL
--- NOTE | 2019-03-17 11:58 | PC.NURSE ---
CHRISTINA at bedside. Pt requests she return later as he did not feel well. She will return later for evaluation
--- NOTE | 2019-03-17 12:34 | PC.NURSE ---
Addendum entered by Beth Puga CNA 03/17/19 12:36: Original Note: pt. is sitting upright in bed talking with KAIWHAKAHAERE.
--- NOTE | 2019-03-17 14:08 | CM.SWNOTE ---
MH/CD Assessment Patient is a 58 year old male who was admitted to [facility] ED for ETOH/S.I. Pt has [employer] for insurance and his PCP is Dr. Lana Rizzo. EMR was reviewed. Per ED MD, pt has no medical need for admit beyond medical detox from ETOH and pt is currently still endorsing Suicidal ideation with plan and still not able to safety plan/contract. SW met bedside with pt in ED room 6 after his last BAL came down from .224 to less than .104 and pt was alert and oriented x3 and looked somewhat unkept and disheveled. Pt states he feels medically/physically ill from his recent alcohol binge but was able to sit up in the bed and participate in a linear discussion. Pt's speech is not pressured but soft and pt denies any auditory or visual disturbances and pt does not appear to be reacting to any internal stimuli. Pt is quite tearful throughout conversation and makes frequent eye contact and continues to endorse suicidal ideation with multiple plans. Stating I just want it all to end. Hx MH: Patient states that he has struggled with depression since his teenage years around the age of 15 and grew up in a chaotic environment in [place] before moving to [place] as a young adult. Pt states that he has primarily sought treatment for his alcohol use but feels that he needs to focus on his depression and mental health issues at this time or at least dual dx tx. Pt has one prior attempt at intentional overdose on medication for suicidal intentions last year before completing detox and getting into Voluntary placement at [facility]. MH tx: Per MIS Check through [facility] shows pt as enrolled with [facility] but no recent appointments prior to February 2019 and 1 Voluntary Placement at [facility] from 06/26/18-07/03/18 last year for suicidal ideation. Pt is currently enrolled with [facility] with Julieta whom pt states he met with last week but pt feels that outpt services right now are too easy for me to lie my way through and pretend everything is alright. CD tx: Patient states that he began drinking at age 15 yr and that his tolerance now is unbelievable. Pt confirms that he went to AA meetings regularly for 8 years and has been to at least 10 chemical dependency treatment facilities, mostly outpt facilities. Pt is very frustrated with himself for continuing to drink and not learning from my mistakes, I just keep doing this. Pt's UDS came back positive for amphetamines, benzos, THC although benzos could be from the Ativan at time of admit. Pt was last at [place] for Detox before being medically stable to transfer to [facility] for inpt tx. Legal: Patient denies Supports: Patient states that he was just approved for Disability which will help relieve some of his financial stress. Pt reports that his friend/roommate Denys is supportive but may not be the best influence for drinking at times. Pt becomes very tearful in discussion of his family and was a while ago from his of 19 years and is estranged from one of his 3 sons which has been very hard for him. 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 Plan: Due to pt's inability to maintain sobriety and pt's ongoing suicidal ideation with plan and hx of suicide attempt last year, pt is not safe for return to the community with a least restrictive alternative and outpt setting. Pt states that he is agreeable for voluntary tx for MH/dual dx placement and aware that he will need to be medically stable/detox prior to admit to MH facility. LYNN updated who also feels pt is not safe for d/c back home at this time and agreeable with trying to find detox facility that can accept the pt prior to MH voluntary tx placement. CHRISTINA Nogueira
[2019-03-17 14:18] LABS: Ethanol (ETOH) 104 mg/dL
--- NOTE | 2019-03-17 14:45 | PC.NURSE ---
pt. is stating that he has body aches/pain everywhere. Stated that he is most likely going through withdrawals. pt. remains to drift in and out of sleep- remains calm and cooperative
[2019-03-17] MEDS: LORazepam 2 MG/ML INJ IV (14:51)
--- NOTE | 2019-03-17 15:35 | PC.NURSE ---
BEADER working on detox placement. Ativan given for etoh w/d.
--- NOTE | 2019-03-17 17:56 | CM.SWNOTE ---
ED HOUSEPERSON NOte Addendum: This criminal justice social worker is taking over for CHRISTINA Nogueira who did the initial assessment for this patieint. This TIRE TRUCKER met with pt to gather additionall information and confirm that he continues to present with suicidal ideation. Pt reported that he was at [facility] last year and found it to be helpful. He was unable to provide a clear precipitant, but stated that he feels as though he needs to address the mental health issues. Pt reported that when he feels stable he is less likely to self-medicate with alcohol and drugs. Pt reported that he is currently seeing a therapist at [facility]; he believes he had his 5th session with Julieta. He last saw her on 03/12/19 and at that time was not acutely suicidal. This criminal justice social worker did not contact [facility] as they are not currently open nor available. Pt confirmed that if he were to be discharged he would try to kill himself by overdosing. He has done this in the past. Mental Status: Pt appears A/O x 3. Affect: appropriate (sad) Mood: depressed Thought content/ process: Pt is goal directed, but had some confusion as he was recently given ativan. Speech: normal, soft voice Insight: present Judgment: intact in that he desires help and is aware that he is in need of services Memory: not tested. He was having some difficulty with giving a specific history regarding dates, but appears generally intact. Behavior: appropriate. Attention: intact SI/HI. Suicidal ideation is present withpklan to overdose with pills. HI denied Plan: This HOUSEPERSON and emergency room provider and pt's nurse all agree that patient warrants inpatient hospitalization due to suicidal ideation and inability to contract for safety. This HOUSEPERSON will continue to bed search until appropriate placement is found.
--- NOTE | 2019-03-17 18:52 | PC.NURSE ---
DIRECTOR MULTIMEDIA continuing to work to find placement. Pt states needs a sleeping med. States ED was too noisy. Explained that it was only 1829 and he would not be getting anything to sleep at this time. LOLA done
--- NOTE | 2019-03-17 19:15 | CM.SWNOTE ---
Addendum entered by CHRISTINA Ball 03/17/19 20:36: Received denial from [facility] [phone] due to medical instability ( they were concerned about pt's blood pressure), but said to call to rivas morning if he remains in a mental health crisis and is medically stable. Addendum entered by CHRISTINA Ball 03/17/19 20:11: [facility] [phone] has also been contacted. Awaiting a call back from triage nurse to provide information re pt. NUT PACKER called [facility] and [facility], but neither have had time to review patient yet. [facility] is also still reviewing information sent. NUT PACKER contacted [place] [employer] to get information about their authorization form, but office is currently closed. Will provide the form to pt's RN for her to fill out if pt is accepted after SW leaves this evening. Original Note: Bed Search NUT PACKER contacted several hospitals after speaking with [facility] and obtaining a list of psychiatric hospitals with available male beds. Given that pt has a hx of depression, bipolar, PTSD and anxiety and is self-medicating, it was decided to dearch for a behavioral health bed that could also address the alcohol and drug issues. SPECIAL EDUCATION DIRECTOR faxed to [facility] ( [phone]), [facility] ) and Crisis [facility] in [place]. ( # [phone]) Contacted [facility], but they did not accept [facility] for detox [facility] no longer accepts people with mental Health issues [facility] [phone] is not open at this time 7:30 AM- 6: 30 PM Randy
[2019-03-17] MEDS: CARVEDILOL 6.25 MG TABLET PO (21:26)
[2019-03-17] MEDS: LISINOPRIL 20 MG TABLET 40 MG PO (21:27)
[2019-03-18] VITALS (29 sets, daily range): BP systolic 154–188; BP diastolic 80–106; PULSE 54–81; RESP 11–17; TEMP 36.1–36.9; O2SAT 93–100
[2019-03-18] MEDS: CARVEDILOL 6.25 MG TABLET PO (07:13)
--- NOTE | 2019-03-18 07:46 | PC.NURSE ---
Delivered meal tray. Pt calm and cooperative. Denies s/s of withdrawal but states he feels lightheaded. Thinks eating will help him feel better. @ 0730 Call from [facility] stating they have accepted pt but do not have a bed yet. States they will call when they have someone discharged. Updated Dr. Isaac.
[2019-03-18] MEDS: LORazepam 0.5 MG TABLET 2 MG PO (09:04)
--- NOTE | 2019-03-18 10:36 | PC.NURSE ---
Patient in shower with SEARCH MARKETING COORDINATOR at door. Room cleaned and linens changed. Provided with clean PJ pants, clean gown, and new socks.
--- NOTE | 2019-03-18 13:09 | CM.SWNOTE ---
PUBLICATIONS INSPECTOR Note: Reviewed EMR. Received notification from previous PUBLICATIONS INSPECTOR/Damari that placement to inpatient psychiatry is being attempted. PUBLICATIONS INSPECTOR placed call to ED this AM, spoke with Dr. Isaac. She reports that she has gotten a call from [facility] and that they will accept. Accepting MD is Dr. Urrutia. ED staff arranged transport via BLS through [facility]. supervisor fabrication department scheduled for 9:30AM. P: Transfer to [facility] today. CHRISTINA Stokes
== END 2019-03-18 12:15 ==
PROVIDERS: Emergency Medicine; Emergency Provider Emergency Medicine; PCP Nurse Practitioner
DX: F32.9 Major depressive disorder, single episode, unspecified (principal); F10.10 Alcohol abuse, uncomplicated; R07.9 Chest pain, unspecified; R06.02 Shortness of breath
CPT/HCPCS: 36415; 36591; 71045; 80053; 80305; 80320; 81003; 82075; 82550; 83690; 83880; 84484; 85025; 93005; 96361; 96374; 96375; 96376; 99285; C9113; J2060; J2405

== ENCOUNTER 2019-04-06 21:18 | Emergency (ER) | payer OTHER, MEDICAID, SELFPAY ==
[2019-04-06 21:05] VITALS: BP 144/90; PULSE 86; RESP 15; O2SAT 96
--- NOTE | 2019-04-06 21:19 | DI.CT.S_ITS ---
PROCEDURE: CT CERVICAL SPINE WO CON INDICATIONS: unresponsive with ETOh hx TECHNIQUE: Noncontrast 3 mm thick sections acquired from the skull base to the T4 level. Sagittal and coronal reformats were then constructed. For radiation dose reduction, the following was used: automated exposure control, adjustment of mA and/or kV according to patient size. COMPARISON: None. FINDINGS: Image quality: Excellent. Bones: No fractures or dislocations. Mild degenerative change. Visualized superior ribs are intact. Soft tissues: Prevertebral soft tissues are normal in thickness. No paravertebral hematomas. No apical pneumothoraces. Fluid in the esophagus. IMPRESSION: No fracture or dislocation. Dictated by: Jacoby Rothman M.D. on 04/06/2019 at 21:55 Approved by: Jacoby Rothman M.D. on 04/06/2019 at 21:57
--- NOTE | 2019-04-06 21:19 | DI.CT.S_ITS ---
PROCEDURE: CT HEAD/BRAIN WO CON INDICATIONS: unresponsive with ETOH hx TECHNIQUE: Noncontrast 4.5 mm thick angled axial sections acquired from the foramen magnum to the vertex, with coronal and sagittal reformats. For radiation dose reduction, the following was used: automated exposure control, adjustment of mA and/or kV according to patient size. COMPARISON: None. FINDINGS: Image quality: Excellent. CSF spaces: Basal cisterns are patent. No extra-axial fluid collections. Ventricles are normal in size and shape. Brain: No midline shift. No intracranial masses or hemorrhage. Schmitz-white matter interface is normal. Mild/moderate periventricular hypodensity consistent with chronic microvascular ischemic change. Skull and face: Calvarium and visualized facial bones are intact, without suspicious lesions. Sinuses: Visualized sinuses and mastoids are clear. IMPRESSION: No acute intracranial abnormality. Dictated by: Jacoby Rothman M.D. on 04/06/2019 at 21:53 Approved by: Jacoby Rothman M.D. on 04/06/2019 at 21:55
--- NOTE | 2019-04-06 21:20 | DI.RAD.S_ITS ---
PROCEDURE: XR CHEST 1V INDICATIONS: unresponsive TECHNIQUE: One view of the chest was acquired. COMPARISON: [facility], CR, XR CHEST 1V, 03/17/2019, 1:16. FINDINGS: Surgical changes and devices: CXR 03/17/2019. Lungs and pleura: Lungs are clear. No pleural effusions or pneumothorax. Mediastinum: Mediastinal contours appear normal. Heart size is normal. Bones and chest wall: No suspicious bony lesions. Overlying soft tissues appear unremarkable. IMPRESSION: No acute cardiopulmonary abnormality. Dictated by: Jacoby Rothman M.D. on 04/06/2019 at 21:52 Approved by: Jacoby Rothman M.D. on 04/06/2019 at 21:52
[2019-04-06 21:36] LABS: Add Manual Diff / Slide Review NO; Basophils Absolute Auto 100 /uL (0-100); Eosinophils Absolute Auto 100 /uL (0-450); Hematocrit 45.7 % (41-53); Hemoglobin 15.8 g/dL (13.5-17.5); Lymphocytes Absolute Auto 2900 /uL (1100-4500); Lymphocytes Percent Auto 37.3 % (25-40); Mean Corpuscular HGB Conc 34.6 % (30-36); Mean Corpuscular Hemoglobin 30.9 PG (26-34); Mean Corpuscular Volume 89.3 fL (80-100); Monocytes Absolute Auto 400 /uL (0-900); Monocytes Percent Auto 5.3 % (3-14); Neutrophils Absolute Auto 4300 /uL (1500-7000); Neutrophils Percent Auto 55.4 % (50-75); Platelet Count 287 X10^3/uL (150-400); Red Blood Cell Count 5.11 X10^6/uL (4.5-5.9); Red Cell Distribution Width 13.8 % (11.6-14.8); White Blood Cell Count 7.8 X10^3/uL (4.5-11.0)
[2019-04-06 21:44] LABS: Prothrombin Time 11.4 SECONDS (10.1-12.7)
--- NOTE | 2019-04-06 21:45 | PC.NURSE ---
Addendum entered by Carol Abrams R.N. 04/06/19 23:29: Pt became less agitated once collar was removed, immediately laid back in bed Original Note: Pt becoming increasingly agitated r/t rigid collar, informing pt unable to remove collar until c-spine cleared by provider. Provider in room and gave verbal order to remove rigid collar.
[2019-04-06 21:46] LABS: Acetaminophen < 10 ug/mL (10-30); Alanine Aminotransferase 31 IU/L (21-72); Albumin 4.2 g/dL (3.5-5.0); Albumin Globulin Ratio 1.4 (1.0-2.8); Alkaline Phosphatase 41 U/L (38-126); Aspartate Aminotransferase 26 IU/L (17-59); Bilirubin Total 0.3 mg/dL (0.2-1.3); Blood Urea Nitrogen 18 mg/dL (9-20); Calcium 9.3 mg/dL (8.4-10.2); Carbon Dioxide 28 mmol/L (22-32); Chloride 108 mmol/L (98-107); Creatine Kinase 75 U/L (55-170); Estimated Glomerular Filt Rate > 60.0 mL/min (>60); Glucose 105 mg/dL (70-100); HEMOLYSIS < 15 (0-50); PTT Partial Thromboplastin Tim 30 SECONDS (26.4-36.2); Salicylate < 1.0 mg/dL (<20); Sodium 148 mmol/L (137-145); Total Protein 7.2 g/dL (6.3-8.2)
--- NOTE | 2019-04-06 21:47 | ED_ITS ---
HPI - Altered Mental Status General Chief Complaint: Toxicology Problem Stated Complaint: Unresponsive Time Seen by Provider: 04/06/19 21:19 Source: EMS and old records reviewed Mode of arrival: EMS History of Present Illness HPI narrative: Patient is a 58-year-old male who presents as unresponsive male with known alcohol problem. He was found by his roommate unable to wake up. EMS was able to get him to arouse to sternal rub. He did start waking up more upon arrival. He is not able to answer questions. There is no sign of trauma. Can follow minimal commands. MD complaint: decreased responsiveness Related Data Home Medications Medication Instructions Recorded Confirmed carvedilol 3.125 mg PO BID 04/07/19 04/07/19 hydrochlorothiazide 50 mg PO DAILY 04/07/19 04/07/19 lisinopril 40 mg PO DAILY 04/07/19 04/07/19 pantoprazole 40 mg PO DAILY 04/07/19 04/07/19 sertraline 50 mg PO DAILY 04/07/19 04/07/19 Previous Rx's Medication Instructions Recorded hydrocodone-acetaminophen [Charlton] 1 tab PO Q6H PRN #8 tab 01/18/19 meloxicam 7.5 mg PO DAILY PRN #20 tab 01/18/19 Allergies Allergy/AdvReac Type Severity Reaction Status Date / Time No Known Drug Allergies Allergy Verified 01/18/19 07:13 Review of Systems Review of Systems ROS Unobtainable: Unobtainable due to medical condition Exam Initial Vital Signs Initial Vital Signs: Vital Signs Pulse Rate 86 04/06/19 21:05 Respiratory Rate 15 04/06/19 21:05 Blood Pressure 144/90 H 04/06/19 21:05 Pulse Oximetry 96 04/06/19 21:05 Gen.: Intoxicated slurring were HEENT: Atraumatic, K[place], Neck: C-collar placed in the ED-although patient not wearing appropriately and turning head inside the collar. The collar was then removed. Lungs: Clear bilaterally Cardiac: Regular rate no murmurs peripheral pulses intact Abdomen: Soft nontender Extremities: No gross bony deformities no edema in lower extremities Neurologic: He does move all extremities equally have strength is equal, slurring of speech Course Orders Ordered: Discontinued Medications Acetaminophen (Tylenol) 975 mg PO NOW ONE Stop: 04/07/19 09:39 Last Admin: 04/07/19 09:41 Dose: 975 mg Carvedilol (Coreg) 12.5 mg PO NOW ONE Stop: 04/07/19 15:44 Last Admin: 04/07/19 16:03 Dose: 12.5 mg Hydrochlorothiazide (Hydrochlorothiazide) 12.5 mg PO NOW ONE Stop: 04/07/19 15:44 Last Admin: 04/07/19 16:03 Dose: 12.5 mg Sodium Chloride (Normal Saline 0.9%) 1,000 mls @ 150 mls/hr IV CONT FORTUNATO Last Infusion: 04/07/19 05:09 Dose: 0 mls/hr Admin: 04/06/19 22:15 Dose: 150 mls/hr Lisinopril (Zestril) 20 mg PO NOW ONE Stop: 04/07/19 15:44 Last Admin: 04/07/19 16:03 Dose: 20 mg Lorazepam (Ativan) 1 mg IV NOW ONE Stop: 04/06/19 21:48 Last Admin: 04/06/19 21:53 Dose: 1 mg Lorazepam (Ativan) 2 mg PO NOW ONE Stop: 04/07/19 11:18 Last Admin: 04/07/19 11:25 Dose: 2 mg Ondansetron HCl (Zofran) 4 mg IV NOW ONE Stop: 04/07/19 06:05 Last Admin: 04/07/19 06:07 Dose: 4 mg Ondansetron HCl (Zofran) 4 mg IV NOW ONE Stop: 04/07/19 09:31 Last Admin: 04/07/19 09:37 Dose: 4 mg Vital Signs - 8 hr 04/06/19 23:30 04/07/19 02:30 04/07/19 03:00 Pulse Rate 89 81 83 Respiratory Rate 17 14 14 Blood Pressure [Right Arm] 156/97 H 128/76 134/83 Pulse Oximetry 100 97 100 04/07/19 04:30 04/07/19 05:00 04/07/19 05:30 Pulse Rate 86 101 H 99 H Respiratory Rate 15 17 20 Blood Pressure [Right Arm] 128/70 150/91 H 166/95 H Pulse Oximetry 98 100 99 04/07/19 06:00 Pulse Rate 86 Respiratory Rate 14 Blood Pressure [Right Arm] 133/78 Pulse Oximetry 92 MDM - Altered Mental Status Lab Data Attestation: I reviewed the patient's lab results. Result diagrams: 04/06/19 21:23 04/07/19 12:13 Lab Results 04/06/19 04/06/19 04/06/19 Range/Units 21:23 21:23 21:23 WBC 7.8 (4.5-11.0) X10^3/uL RBC 5.11 (4.5-5.9) X10^6/uL Hgb 15.8 (13.5-17.5) g/dL Hct 45.7 (41-53) % MCV 89.3 (80-100) fL MCH 30.9 (26-34) PG MCHC 34.6 (30-36) % RDW 13.8 (11.6-14.8) % Plt Count 287 (150-400) X10^3/uL Neut % (Auto) 55.4 (50-75) % Lymph % (Auto) 37.3 (25-40) % [place] % (Auto) 5.3 (3-14) % Eos % (Auto) 1.0 L (2-4) % Baso % (Auto) 1.0 (0-2) % Neut # (Auto) 4300 (5358-5871) /uL Lymph # (Auto) 2900 (1533-5014) /uL [place] # (Auto) 400 (0-900) /uL Eos # (Auto) 100 (0-450) /uL Baso # (Auto) 100 (0-100) /uL PT 11.4 (10.1-12.7) SECONDS INR 1.0 (0.9-1.3) APTT 30 (26.4-36.2) SECONDS Sodium 148 H (137-145) mmol/L Potassium 4.0 (3.4-5.1) mmol/L Chloride 108 H (98-107) mmol/L Carbon Dioxide 28 (22-32) mmol/L BUN 18 (9-20) mg/dL Creatinine 0.90 (0.66-1.25) mg/dL Estimated GFR > 60.0 (>60) mL/min BUN/Creatinine Ratio 20.0 (6-22) Glucose 105 H (70-100) mg/dL Calcium 9.3 (8.4-10.2) mg/dL Total Bilirubin 0.3 (0.2-1.3) mg/dL AST 26 (17-59) IU/L ALT 31 (21-72) IU/L Alkaline Phosphatase 41 (38-126) U/L Ammonia (9-30) umol/L Total Creatine Kinase 75 (55-170) U/L CK-MB (CK-2) TNP CK-MB (CK-2) Rel Index TNP Troponin I < 0.012 (0.01-0.034) ng/mL Total Protein 7.2 (6.3-8.2) g/dL Albumin 4.2 (3.5-5.0) g/dL Globulin 3.0 (1.7-4.1) g/dL Albumin/Globulin Ratio 1.4 (1.0-2.8) TSH (0.47-4.68) uIU/mL Prolactin 21.3 H (3.7-17.9) ng/mL Salicylates < 1.0 (<20) mg/dL Urine Opiates Screen (Negative) Ur Oxycodone Screen (Negative) Urine Methadone Screen (Negative) Acetaminophen < 10 L (10-30) ug/mL Ur Barbiturates Screen (Negative) U Tricyclic Antidepress (Negative) Ur Phencyclidine Scrn (Negative) Ur Amphetamines Screen (Negative) U Methamphetamines Scrn (Negative) Ur MDMA Scrn (Ecstasy) (Negative) U Benzodiazepines Scrn (Negative) Urine Cocaine Screen (Negative) U Marijuana (THC) Screen (Negative) Ethyl Alcohol 359 H ( - 10) mg/dL 04/06/19 04/06/19 04/07/19 Range/Units 21:23 21:23 07:10 WBC (4.5-11.0) X10^3/uL RBC (4.5-5.9) X10^6/uL Hgb (13.5-17.5) g/dL Hct (41-53) % MCV (80-100) fL MCH (26-34) PG MCHC (30-36) % RDW (11.6-14.8) % Plt Count (150-400) X10^3/uL Neut % (Auto) (50-75) % Lymph % (Auto) (25-40) % [place] % (Auto) (3-14) % Eos % (Auto) (2-4) % Baso % (Auto) (0-2) % Neut # (Auto) (6192-7214) /uL Lymph # (Auto) (4469-7456) /uL [place] # (Auto) (0-900) /uL Eos # (Auto) (0-450) /uL Baso # (Auto) (0-100) /uL PT (10.1-12.7) SECONDS INR (0.9-1.3) APTT (26.4-36.2) SECONDS Sodium (137-145) mmol/L Potassium (3.4-5.1) mmol/L Chloride (98-107) mmol/L Carbon Dioxide (22-32) mmol/L BUN (9-20) mg/dL Creatinine (0.66-1.25) mg/dL Estimated GFR (>60) mL/min BUN/Creatinine Ratio (6-22) Glucose (70-100) mg/dL Calcium (8.4-10.2) mg/dL Total Bilirubin (0.2-1.3) mg/dL AST (17-59) IU/L ALT (21-72) IU/L Alkaline Phosphatase (38-126) U/L Ammonia 40.0 H (9-30) umol/L Total Creatine Kinase (55-170) U/L CK-MB (CK-2) CK-MB (CK-2) Rel Index Troponin I (0.01-0.034) ng/mL Total Protein (6.3-8.2) g/dL Albumin (3.5-5.0) g/dL Globulin (1.7-4.1) g/dL Albumin/Globulin Ratio (1.0-2.8) TSH 0.17 L (0.47-4.68) uIU/mL Prolactin (3.7-17.9) ng/mL Salicylates (<20) mg/dL Urine Opiates Screen Negative (Negative) Ur Oxycodone Screen Negative (Negative) Urine Methadone Screen Negative (Negative) Acetaminophen (10-30) ug/mL Ur Barbiturates Screen Negative (Negative) U Tricyclic Antidepress Negative (Negative) Ur Phencyclidine Scrn Negative (Negative) Ur Amphetamines Screen Negative (Negative) U Methamphetamines Scrn Negative (Negative) Ur MDMA Scrn (Ecstasy) Negative (Negative) U Benzodiazepines Scrn Positive H (Negative) Urine Cocaine Screen Negative (Negative) U Marijuana (THC) Screen Negative (Negative) Ethyl Alcohol ( - 10) mg/dL 04/07/19 04/07/19 04/07/19 Range/Units 12:13 12:13 14:34 WBC (4.5-11.0) X10^3/uL RBC (4.5-5.9) X10^6/uL Hgb (13.5-17.5) g/dL Hct (41-53) % MCV (80-100) fL MCH (26-34) PG MCHC (30-36) % RDW (11.6-14.8) % Plt Count (150-400) X10^3/uL Neut % (Auto) (50-75) % Lymph % (Auto) (25-40) % [place] % (Auto) (3-14) % Eos % (Auto) (2-4) % Baso % (Auto) (0-2) % Neut # (Auto) (9006-0525) /uL Lymph # (Auto) (7238-5477) /uL [place] # (Auto) (0-900) /uL Eos # (Auto) (0-450) /uL Baso # (Auto) (0-100) /uL PT (10.1-12.7) SECONDS INR (0.9-1.3) APTT (26.4-36.2) SECONDS Sodium 142 (137-145) mmol/L Potassium 3.8 (3.4-5.1) mmol/L Chloride 105 (98-107) mmol/L Carbon Dioxide 26 (22-32) mmol/L BUN 21 H (9-20) mg/dL Creatinine 1.00 (0.66-1.25) mg/dL Estimated GFR > 60.0 (>60) mL/min BUN/Creatinine Ratio 21.0 (6-22) Glucose 104 H (70-100) mg/dL Calcium 8.9 (8.4-10.2) mg/dL Total Bilirubin 0.3 (0.2-1.3) mg/dL AST 36 (17-59) IU/L ALT 38 (21-72) IU/L Alkaline Phosphatase 36 L (38-126) U/L Ammonia 20.0 (9-30) umol/L Total Creatine Kinase (55-170) U/L CK-MB (CK-2) CK-MB (CK-2) Rel Index Troponin I (0.01-0.034) ng/mL Total Protein 6.6 (6.3-8.2) g/dL Albumin 3.8 (3.5-5.0) g/dL Globulin 2.8 (1.7-4.1) g/dL Albumin/Globulin Ratio 1.4 (1.0-2.8) TSH (0.47-4.68) uIU/mL Prolactin 21.1 H (3.7-17.9) ng/mL Salicylates (<20) mg/dL Urine Opiates Screen (Negative) Ur Oxycodone Screen (Negative) Urine Methadone Screen (Negative) Acetaminophen (10-30) ug/mL Ur Barbiturates Screen (Negative) U Tricyclic Antidepress (Negative) Ur Phencyclidine Scrn (Negative) Ur Amphetamines Screen (Negative) U Methamphetamines Scrn (Negative) Ur MDMA Scrn (Ecstasy) (Negative) U Benzodiazepines Scrn (Negative) Urine Cocaine Screen (Negative) U Marijuana (THC) Screen (Negative) Ethyl Alcohol 108 H 53 H ( - 10) mg/dL Point of Care Testing Breathalizer 0.[address] scan - head: Radiologist's impression: PROCEDURE: CT HEAD/BRAIN WO CON INDICATIONS: unresponsive with ETOH hx TECHNIQUE: Noncontrast 4.5 mm thick angled axial sections acquired from the foramen magnum to the vertex, with coronal and sagittal reformats. For radiation dose reduction, the following was used: automated exposure control, adjustment of mA and/or kV according to patient size. COMPARISON: None. FINDINGS: Image quality: Excellent. CSF spaces: Basal cisterns are patent. No extra-axial fluid collections. Ventricles are normal in size and shape. Brain: No midline shift. No intracranial masses or hemorrhage. Schmitz-white matter interface is normal. Mild/moderate periventricular hypodensity consistent with chronic microvascular ischemic change. Skull and face: Calvarium and visualized facial bones are intact, without suspicious lesions. Sinuses: Visualized sinuses and mastoids are clear. IMPRESSION: No acute intracranial abnormality. Dictated by: Jacoby Rothman M.D. on 04/06/2019 at 21:53 CT cervical spine: Radiologist's impression: PROCEDURE: CT CERVICAL SPINE WO CON INDICATIONS: unresponsive with ETOh hx TECHNIQUE: Noncontrast 3 mm thick sections acquired from the skull base to the T4 level. Sagittal and coronal reformats were then constructed. For radiation dose reduction, the following was used: automated exposure control, adjustment of mA and/or kV according to patient size. COMPARISON: None. FINDINGS: Image quality: Excellent. Bones: No fractures or dislocations. Mild degenerative change. Visualized superior ribs are intact. Soft tissues: Prevertebral soft tissues are normal in thickness. No paravertebral hematomas. No apical pneumothoraces. Fluid in the esophagus. IMPRESSION: No fracture or dislocation. Dictated by: Jacoby Rothman M.D. on 04/06/2019 at 21:55 Chest x-ray: Radiologist's impression: PROCEDURE: XR CHEST 1V INDICATIONS: unresponsive TECHNIQUE: One view of the chest was acquired. COMPARISON: [facility], , XR CHEST 1V, 03/17/2019, 1:16. FINDINGS: Surgical changes and devices: CXR 03/17/2019. Lungs and pleura: Lungs are clear. No pleural effusions or pneumothorax. Mediastinum: Mediastinal contours appear normal. Heart size is normal. Bones and chest wall: No suspicious bony lesions. Overlying soft tissues appear unremarkable. IMPRESSION: No acute cardiopulmonary abnormality. Dictated by: Jacoby Rothman M.D. on 04/06/2019 at 21:52 ECG Data Attestation: I personally reviewed and interpreted this ECG as follows: Prior ECG tracings: available for review Interpretation: Sinus rhythm rate 83 P are interval [address] changes no T-wave inversions similar to previous EKG last month MDM Narrative Medical decision making narrative: 1 patient is stimulated he is quite agitated. He is given Ativan, in order to get CT head and neck. Sleeping now in the ED. Will need to be sober and have re-evaluation. 6:15 a.m. patient more awake he states that he is not ready or able to go home. He is not able to cope. According to records he stayed in the ED for couple of days while trying to find placement for him which I think was ultimately unsuccessful. Will have social work come and evaluate him today not sure he can be placed. At this time he sent and does not meet any sort of involuntary criteria Signed out: to Dr. jiang for further manegment. Discharge Plan Departure [facility] Clinical Impression: Alcohol abuse, Depression with suicidal ideation Discharge Date/Time: 04/07/19 18:17 Interventions: ED Discharge Assessment Last Done: 04/07/19 18:16 Prescriptions: No Action hydrocodone-acetaminophen [Charlton] 5-325 mg tablet 1 tab PO Q6H PRN (Reason: pain (scale score 7-10)) Qty: 8 RF: 0 meloxicam 7.5 mg tablet 7.5 mg PO DAILY PRN (Reason: pain (scale score 4-6)) Qty: 20 RF: 0 hydrochlorothiazide 50 mg tablet 50 mg PO DAILY RF: 0 carvedilol 3.125 mg tablet 3.125 mg PO BID RF: 0 pantoprazole 40 mg tablet,delayed release (DR/EC) 40 mg PO DAILY RF: 0 lisinopril 40 mg tablet 40 mg PO DAILY RF: 0 sertraline 50 mg tablet 50 mg PO DAILY RF: 0 Referrals: Lana Rizzo ARNP [Primary Care Provider] -
[2019-04-06 21:53] LABS: Ethanol (ETOH) 359 mg/dL
[2019-04-06] MEDS: LORazepam 2 MG/ML INJ 1 MG IV (21:53)
[2019-04-06 21:57] LABS: Troponin I < 0.012 ng/mL (0.01-0.034)
[2019-04-06 22:02] LABS: Prolactin 21.3 ng/mL (3.7-17.9)
[2019-04-06 22:15] LABS: Thyroid Stimulating Hormone 0.17 uIU/mL (0.47-4.68)
[2019-04-06] MEDS: SODIUM CHLORIDE 0.9% 1,000 ML 150 ML IV (22:15)
--- NOTE | 2019-04-06 22:15 | PC.NURSE ---
patient moved to room 8 in the ED from room 2 so that he is visualized and closer to the nurses station. provider aware and no new orders.
--- NOTE | 2019-04-06 22:30 | PC.NURSE ---
patients oxygen sats dropping to 87% room air. patient resting with eyes closed. provider notified. patient placed on 2L via NC. provider aware and no new orders at this time.
[2019-04-06 22:40] VITALS: BP 151/85; PULSE 88; RESP 15; O2SAT 96
[2019-04-06 23:30] VITALS: BP 156/97; PULSE 89; RESP 17; O2SAT 100
[2019-04-07] VITALS (11 sets, daily range): BP systolic 128–198; BP diastolic 70–116; PULSE 80–107; RESP 14–20; O2SAT 92–100
--- NOTE | 2019-04-07 06:00 | PC.NURSE ---
patient sitting up stating really bad, I'm really bad when asked whats wrong he just answers with i'm really bad. I asked if he felt nauseous and he nodded his head yes. notified provider and provider ordered 4mg zofran IV.
[2019-04-07] MEDS: ONDANSETRON 4 MG/2 ML INJ IV ×2 (06:07→09:37)
[2019-04-07 09:29] LABS: Urine Amphetamines Negative (Negative); Urine Barbiturates Negative (Negative); Urine Benzodiazepines Positive (Negative); Urine Cocaine Negative (Negative); Urine MDMA Negative (Negative); Urine Methadone Negative (Negative); Urine Methamphetamines Negative (Negative); Urine Morphine/Opi cutoff 2000 Negative (Negative); Urine Oxycodone Negative (Negative); Urine Phencyclidine Negative (Negative); Urine Tetrahydrocannabinol Negative (Negative); Urine Tricyclic Antidepressant Negative (Negative)
[2019-04-07] MEDS: ACETAMINOPHEN 325 MG TABLET 975 MG PO (09:41)
[2019-04-07] MEDS: LORazepam 0.5 MG TABLET 2 MG PO (11:25)
--- NOTE | 2019-04-07 11:30 | PC.NURSE ---
ANIMAL KEEPER HEAD/MANAGER PERFORMANCE note: Patient is complaining of right arm PX. RN and Md notified. Pt. is blew a 0.36 on breathalyzer. RN Notified. Pt. is now laying down on gurney.
--- NOTE | 2019-04-07 11:44 | PC.NURSE ---
MELANGEUR OPERATOR/STEAM CLEAN MACHINE OPERATOR Note: Pt. refused lunch. Patient stated I can't eat right now. Don't drink, alcohol is the devil.'' I told him I would save his lunch. Pt. is now sitting up resting.
--- NOTE | 2019-04-07 12:14 | CM.SWNOTE ---
Addendum entered by CHRISTINA Nogueira 04/07/19 15:17: ADD: LYNN received a call from [facility] stating that due to pt's ETOH, recommending SW first attempt placement at dual dx/co-occurring facility (like [facility] or [facility]) and then if no place can accept then they would be willing to screen pt for possible placement. LYNN met bedside with pt and explained that [facility] cannot currently accept and confirmed that pt still voluntary and willing for SW to make referral to other facilities (but not [facility]) for voluntary tx. LYNN called [facility] and tentatively assigned [facility] ([phone]) and updated that pt currently now voluntary and therefore DCR dispatch cancelled. LYNN called both [facility] ([phone]) and [facility] ([phone]) intake and confirmed both have anticipated open male dual dx beds and willing to screen the pt. [facility] Intake requested to speak briefly with pt via phone and ED staff helped connect pt with [facility] intake. LYNN faxed referral/clinicals to both [facility] and [facility]. Plan: SW to follow for [facility] and [facility] review for voluntary tx. CHRISTINA Nogueira Addendum entered by CHRISTINA Nogueira 04/07/19 13:12: Per RN, BAL returned and pt is a .108 so they will plan to do another BAL in about an hour and a half or two hours as pt will need to be .08 or below before [facility] can dispatch. BF Addendum entered by CHRISTINA Nogueira 04/07/19 12:31: ADD: Initially, pt was not willing to go to treatment but had active Suicidal Ideation and not safe for direct d/c to the community. LYNN called [facility] and initiated DCR to assess for Involuntary detainment for tx. Faxed Attestation that MD signed stating pt was medically cleared to A and awaiting final BAL to be below .08 so that DCR can be dispatched. LYNN updated RN who states she will get a breathalizer on pt now and states he is currently .036 but stating he would possibly be Voluntary. Per RN, pt stating that he would be willing to voluntarily go to [facility] inpt tx but would not go back to [facility]. LYNN called [facility] and they anticipate male openings today and SW completed brief referral via phone ([phone]) and faxed requested clinicals to review to fax ([phone]). LYNN updated RN who states she also spoke to [facility] who states they cannot accept breathalizer but need Blood Alcohol Level before she can be dispatched and RN working on getting the BAL in case [facility] cannot accept and pt refuses to go anywhere else. Plan: SW to follow closely for [facility] review for possible acceptance today. CHRISTINA Nogueira Original Note: MH/CD Assessment Patient is a 58 year old male who was admitted to [facility] ED for ETOH/S.I. Pt has [employer] for insurance and his PCP is Dr. Lana Rizzo. EMR was reviewed. Per ED MD, pt has no medical need for admit to the hospital and pt is currently still endorsing Suicidal ideation with plan and still not able to safety plan/contract. SW met bedside with pt in ED room 8 after his last BAL came down from .359 to .036 and pt was alert and oriented x3 and looked somewhat unkept and disheveled. Pt states he feels medically/physically ill from his recent alcohol binge but was able to sit up in the bed and participate in a linear discussion. Pt's speech is not pressured but soft and pt denies any auditory or visual disturbances and pt does not appear to be reacting to any internal stimuli. Pt is quite tearful throughout conversation and makes frequent eye contact and continues to endorse suicidal ideation with multiple plans. Stating I just want it all to end, life is not worth it. Pt initially declined treatment but continued to make statements that he would be better off but then stated he would be willing to go to treatment. Hx MH: Patient states that he has struggled with depression since his teenage years around the age of 15 and grew up in a chaotic environment in [place] before moving to [place] as a young adult. Pt states that he has primarily sought treatment for his alcohol use but feels that he needs to focus on his depression and mental health issues at this time or at least dual dx tx. Pt has one prior attempt at intentional overdose on medication for suicidal intentions last year before completing detox and getting into Voluntary placement at [facility] but was recently admitted to [facility] ED on 03/17/19 for ETOH/Suicidal ideation and was able to receive Voluntary MH tx at [facility] before discharging home to outpt [facility]. MH tx: Per MIS Check through [facility] shows pt as enrolled with [facility] and sees counselor Julieta and 1 Voluntary Placement at [facility] from 06/26/18-07/03/18 last year for suicidal ideation and then recently was discharged from [facility] ED on 03/18/19 to [facility] Voluntary MH Inpt tx. Pt is currently enrolled with [facility] with Julieta whom pt states he met with last week but pt feels that outpt services right now are too easy for me to lie my way through and pretend everything is alright. CD tx: Patient states that he began drinking at age 15 yr and that his tolerance now is unbelievable. Pt confirms that he went to AA meetings regularly for 8 years and has been to at least 10 chemical dependency treatment facilities, mostly outpt facilities. Pt is very frustrated with himself for continuing to drink and not learning from my mistakes, I just keep doing this. Pt's UDS came back positive for benzos which could be from the Ativan at time of admit. Pt was last at [facility] for Detox before being medically stable to transfer to [facility] for inpt tx. Legal: Patient denies Supports: Patient states that he was just approved for Disability which will help relieve some of his financial stress. Pt reports that his friend/roommate Denys is supportive but may not be the best influence for drinking at times. Pt becomes very tearful in discussion of his family and was a while ago from his of 19 years and is estranged from one of his 3 sons which has been very hard for him. 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 Plan: Due to pt's inability to maintain sobriety and pt's ongoing suicidal ideation with plan and hx of suicide attempt last year, pt is not safe for return to the community with a least restrictive alternative and outpt setting. Pt initially indicated that he would not be willing to participate in voluntary inpt treatment but now states that he is agreeable for voluntary tx for MH/dual dx. LYNN wyatt MD who also feels pt is not safe for d/c back home at this time and agreeable with trying to find a facility that can accept the pt for MH voluntary tx placement. SW also left message for pt's outpt mental health provider at [facility]. CHRISTINA Nogueira
[2019-04-07 12:41] LABS: Alanine Aminotransferase 38 IU/L (21-72); Albumin 3.8 g/dL (3.5-5.0); Albumin Globulin Ratio 1.4 (1.0-2.8); Alkaline Phosphatase 36 U/L (38-126); Aspartate Aminotransferase 36 IU/L (17-59); Bilirubin Total 0.3 mg/dL (0.2-1.3); Blood Urea Nitrogen 21 mg/dL (9-20); Calcium 8.9 mg/dL (8.4-10.2); Carbon Dioxide 26 mmol/L (22-32); Chloride 105 mmol/L (98-107); Estimated Glomerular Filt Rate > 60.0 mL/min (>60); Ethanol (ETOH) 108 mg/dL; Globulin 2.8 g/dL (1.7-4.1); Glucose 104 mg/dL (70-100); HEMOLYSIS 24 (0-50); Potassium 3.8 mmol/L (3.4-5.1); Sodium 142 mmol/L (137-145); Total Protein 6.6 g/dL (6.3-8.2)
[2019-04-07 12:56] LABS: Prolactin 21.1 ng/mL (3.7-17.9)
--- NOTE | 2019-04-07 14:01 | PC.NURSE ---
Pt requested lunch. He is sitting up and eating with no issue.
[2019-04-07 14:52] LABS: Ethanol (ETOH) 53 mg/dL
[2019-04-07] MEDS: CARVEDILOL 12.5 MG TABLET PO (16:03)
[2019-04-07] MEDS: hydroCHLOROthiazide 12.5 MG CAPSULE PO (16:03)
[2019-04-07] MEDS: LISINOPRIL 20 MG TABLET PO (16:03)
--- NOTE | 2019-04-07 16:51 | PC.NURSE ---
1:1 sitter remains outside of Door. Pt returned to sleeping , resting comfortably, snoring, with respirations even and unlabored. Pt appears in no acute distress.
--- NOTE | 2019-04-07 17:35 | CM.SWNOTE ---
ED DIESEL ENGINE INSPECTOR Note DIESEL ENGINE INSPECTOR followed up after Aleksandra Crews, DIESEL ENGINE INSPECTOR went off schedule. Called [facility]. [phone]. Pt was accepted. Transport has been called and is expected to show up at 18:30. DIESEL ENGINE INSPECTOR called intake to inform them that expected ETA is 2100. Pt's RN will call nurse line at [phone]. Pt's Provider, has been informed. Pt has been informed and is agreeable. DIESEL ENGINE INSPECTOR inquired if auth needs to be provided by . DIESEL ENGINE INSPECTOR was told by [facility] that [facility] will obtain auth. Receiving physiciain is Dr Rose Veronica. SW to follow as needed, but no other SW needs noted.
--- NOTE | 2019-04-07 18:01 | PC.NURSE ---
Report given to Livan WHITAKER at [place].
== END 2019-04-07 18:17 | disposition short-term general hospital (02) ==
PROVIDERS: Emergency Medicine; Emergency Provider Emergency Medicine; PCP Nurse Practitioner
DX: F10.10 Alcohol abuse, uncomplicated (principal); F32.9 Major depressive disorder, single episode, unspecified; R45.851 Suicidal ideations
CPT/HCPCS: 36415; 36591; 70450; 71045; 72125; 80053; 80305; 80320; 80329; 82075; 82140; 82550; 84146; 84443; 84484; 85025; 85610; 85730; 87086; 93005; 93010; 96361; 96374; 96376; 99285; G0480; J2060; J2405

== ENCOUNTER 2019-04-26 14:00 | Inpatient (IN) | payer OTHER, MEDICAID, SELFPAY ==
[2019-04-26] VITALS (10 sets, daily range): BP systolic 93–130; BP diastolic 54–82; PULSE 63–112; RESP 14–26; TEMP 35.6–36.2; O2SAT 95–100; BMI 36.1
--- NOTE | 2019-04-26 | DI.RAD.S_ITS ---
PROCEDURE: XR CHEST 1V INDICATIONS: INTUBATION TECHNIQUE: One view of the chest was acquired. COMPARISON: [facility], CR, XR ELBOW RT 2V, 04/26/2019, 15:24. [facility], CT, CT HEAD/BRAIN WO CON, 04/26/2019, 14:26. [facility], CT, CT FACIAL BONES WO CON, 04/26/2019, 14:26. [facility], CR, XR WRIST RT MIN 3V, 04/26/2019, 15:26. [facility], CR, XR FOREARM RT 2V, 04/26/2019, 15:20. [facility], CR, XR CHEST 1V, 04/26/2019, 14:08. FINDINGS: Surgical changes and devices: An endotracheal tube is seen, with the tip 6 cm above the dorcas. A gastric tube is seen, with the tip seen beyond the dorcas, overlying the distal esophagus, not reaching the diaphragm. Lungs and pleura: On this supine examination, no large pneumothorax or large pleural effusions are seen. No focal areas of lung consolidation are seen. Low lung volumes are noted. This causes a crowded appearance to the lung markings and limits evaluation. Mediastinum: Mediastinal contours appear normal. Heart size is normal. Bones and chest wall: No suspicious bony lesions. Overlying soft tissues appear unremarkable. IMPRESSION: The tip of the endotracheal tube is seen 6 cm above the dorcas. Recommend advancement of the gastric tube, which is seen overlying the distal esophagus, not reaching the diaphragm. Note: Findings and recommendations discussed by telephone with Dr. Zamora at 3:38 PM [place] time on April 26, 2019. Dictated by: Jimbo Clayton M.D. on 04/26/2019 at 14:36 Approved by: Jimbo Clayton M.D. on 04/26/2019 at 14:41
[2019-04-26] MEDS: SODIUM CHLORIDE 0.9% 1,000 ML 1000 ML IV (14:00)
[2019-04-26] MEDS: KETAMINE 500 MG/10 ML INJ 150 MG IV (14:05)
--- NOTE | 2019-04-26 14:09 | DI.CT.S_ITS ---
PROCEDURE: CT HEAD/BRAIN WO CON INDICATIONS: trauma TECHNIQUE: Noncontrast 4.5 mm thick angled axial sections acquired from the foramen magnum to the vertex, with coronal and sagittal reformats. For radiation dose reduction, the following was used: automated exposure control, adjustment of mA and/or kV according to patient size. COMPARISON: [facility], CT, CT CERVICAL SPINE WO CON, 04/26/2019, 14:26. [facility], CT, CT FACIAL BONES WO CON, 04/26/2019, 14:26. [facility], CT, CT HEAD/BRAIN WO CON, 04/06/2019, 21:19. FINDINGS: Image quality: This examination is limited by involuntary motion artifact. CSF spaces: Basal cisterns are patent. No extra-axial fluid collections. Ventricles are normal in size and shape. Brain: No midline shift. No intracranial masses or hemorrhage. Schmitz-white matter interface is normal. Skull and face: A right forehead laceration is seen, with hematoma in superficial debris. No underlying calvarial fracture is seen. Calvarium and visualized facial bones are intact, without suspicious lesions. Sinuses: Visualized sinuses and mastoids are clear. IMPRESSION: No acute intracranial hemorrhage is seen. Right forehead laceration, with hematoma and superficial debris. No associated calvarial fracture is seen. Dictated by: Jimbo Clayton M.D. on 04/26/2019 at 13:50 Approved by: Jimbo Clayton M.D. on 04/26/2019 at 13:51
--- NOTE | 2019-04-26 14:09 | DI.RAD.S_ITS ---
PROCEDURE: XR CHEST 1V INDICATIONS: trauma TECHNIQUE: One view of the chest was acquired. COMPARISON: [facility], CR, XR CHEST 1V, 03/17/2019, 1:16. [facility], CT, CT FACIAL BONES WO CON, 04/26/2019, 14:26. [facility], CT, CT HEAD/BRAIN WO CON, 04/26/2019, 14:26. [facility], CR, XR CHEST 1V, 04/06/2019, 21:33. FINDINGS: Surgical changes and devices: None. Lungs and pleura: On this supine examination, no large pneumothorax or large pleural effusions are seen. No focal areas of lung consolidation are seen. Mediastinum: Mediastinal contours appear normal. Heart size is normal. Bones and chest wall: No suspicious bony lesions. Overlying soft tissues appear unremarkable. IMPRESSION: Portable chest within normal limits. If there is strong clinical concern for a posttraumatic abnormality not seen on this study, please a dedicated CT examination for further evaluation. Dictated by: Jimbo Clayton M.D. on 04/26/2019 at 13:44 Approved by: Jimbo Clayton M.D. on 04/26/2019 at 13:46
--- NOTE | 2019-04-26 14:09 | DI.CT.S_ITS ---
PROCEDURE: CT FACIAL BONES WO CON INDICATIONS: trauma TECHNIQUE: Noncontrast 2.5 mm thick axial images acquired from the mandible through the frontal sinuses, with coronal and sagittal reformatting. For radiation dose reduction, the following was used: automated exposure control, adjustment of mA and/or kV according to patient size. COMPARISON: [facility], CT, CT HEAD/BRAIN WO CON, 04/06/2019, 21:19. [facility], CR, XR CHEST 1V, 04/26/2019, 14:08. [facility], CT, CT CERVICAL SPINE WO CON, 04/26/2019, 14:26. [facility], CT, CT HEAD/BRAIN WO CON, 04/26/2019, 14:26. FINDINGS: Image quality: This examination is limited by involuntary motion artifact. Evaluation is limited, secondary to the patient's inability to fully cooperate with the examination. Bones and teeth: Orbital gill are intact. Sinus gill show no fracture or deformity. Nasal bones and septum are intact. Visualized portions of the mandible demonstrate no fractures or subluxation. Zygomatic arches are intact. Pterygoid plates are intact. Visualized portions of the skull base and auditory canals are intact. Sinuses: Paranasal sinuses are aerated, without fluid levels, mucosal thickening, or mucoceles. Mastoid air cells are aerated. 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 Soft tissues: A right forehead laceration is seen, with superficial debris and bandaging material. Vascular: Visualized vascular structures appear normal in the absence of contrast. Bony vascular foramina and canals are intact. IMPRESSION: A right forehead laceration, with associated superficial debris. No regional fracture can be seen. No fractures are seen elsewhere. This study is limited by motion artifact. Dictated by: Jimbo Clayton M.D. on 04/26/2019 at 13:46 Approved by: Jimbo Clayton M.D. on 04/26/2019 at 13:49
--- NOTE | 2019-04-26 14:09 | DI.CT.S_ITS ---
PROCEDURE: CT CERVICAL SPINE WO CON INDICATIONS: trauma TECHNIQUE: Noncontrast 3 mm thick sections acquired from the skull base to the T4 level. Sagittal and coronal reformats were then constructed. For radiation dose reduction, the following was used: automated exposure control, adjustment of mA and/or kV according to patient size. COMPARISON: [facility], CT, CT FACIAL BONES WO CON, 04/26/2019, 14:26. [facility], CT, CT HEAD/BRAIN WO CON, 04/26/2019, 14:26. FINDINGS: Image quality: This examination is limited by involuntary motion artifact. Bones: No fractures or dislocations. Visualized superior ribs are intact. Degenerative changes are seen, including moderate to severe disc space narrowing at the C5-C6 level. Milder degenerative changes are seen elsewhere. Soft tissues: Prevertebral soft tissues are normal in thickness. No paravertebral hematomas. No apical pneumothoraces. IMPRESSION: To the limits of this study with motion artifact, no displaced fractures are seen. Dictated by: Jimbo Clayton M.D. on 04/26/2019 at 13:52 Approved by: Jimbo Clayton M.D. on 04/26/2019 at 13:53
[2019-04-26] MEDS: KETAMINE 500 MG/5 ML INJ 50 MG IV (14:11)
[2019-04-26] MEDS: KETAMINE 500 MG/10 ML INJ 100 MG IV ×3 (14:15→14:35)
--- NOTE | 2019-04-26 14:18 | DI.RAD.S_ITS ---
PROCEDURE: XR FOREARM RT 2V INDICATIONS: deformity TECHNIQUE: 2 views of the forearm were acquired. COMPARISON: [facility], CR, XR WRIST RT MIN 3V, 04/26/2019, 15:26. [facility], CR, XR ELBOW RT 2V, 04/26/2019, 15:24. [facility], CR, XR CHEST 1V, 04/26/2019, 15:17. [facility], CT, CT CERVICAL SPINE WO CON, 04/26/2019, 14:26. [facility], CT, CT FACIAL BONES WO CON, 04/26/2019, 14:26. [facility], CT, CT HEAD/BRAIN WO CON, 04/26/2019, 14:26. [facility], CR, XR CHEST 1V, 04/26/2019, 14:08. FINDINGS: Bones: No fractures or dislocations. No suspicious bony lesions. The overlying casting material limits evaluation of fine detail. Soft tissues: No suspicious soft tissue calcifications or masses. IMPRESSION: No displaced fractures are seen. Note: Case discussed by telephone with Dr. Zamora at 3:38 PM [place] time on April 26, 2019. Dictated by: Jimbo Clayton M.D. on 04/26/2019 at 14:41 Approved by: Jimbo Clayton M.D. on 04/26/2019 at 14:42
[2019-04-26 14:21] LABS: Add Manual Diff / Slide Review NO; Basophils Absolute Auto 100 /uL (0-100); Basophils Percent Auto 1.1 % (0-2); Eosinophils Absolute Auto 100 /uL (0-450); Eosinophils Percent Auto 1.1 % (2-4); Hematocrit 37.7 % (41-53); Hemoglobin 12.9 g/dL (13.5-17.5); Lymphocytes Absolute Auto 3100 /uL (1100-4500); Lymphocytes Percent Auto 55.3 % (25-40); Mean Corpuscular HGB Conc 34.2 % (30-36); Mean Corpuscular Hemoglobin 30.6 PG (26-34); Mean Corpuscular Volume 89.5 fL (80-100); Monocytes Absolute Auto 100 /uL (0-900); Monocytes Percent Auto 2.3 % (3-14); Neutrophils Absolute Auto 2200 /uL (1500-7000); Neutrophils Percent Auto 40.2 % (50-75); Platelet Count 223 X10^3/uL (150-400); Red Blood Cell Count 4.21 X10^6/uL (4.5-5.9); Red Cell Distribution Width 13.8 % (11.6-14.8); White Blood Cell Count 5.6 X10^3/uL (4.5-11.0)
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
[2019-04-26 14:28] LABS: PTT Partial Thromboplastin Tim 27 SECONDS (26.4-36.2)
[2019-04-26 14:31] LABS: Alanine Aminotransferase 204 IU/L (21-72); Albumin 3.9 g/dL (3.5-5.0); Albumin Globulin Ratio 1.4 (1.0-2.8); Alkaline Phosphatase 50 U/L (38-126); Aspartate Aminotransferase 267 IU/L (17-59); BUN Creatinine Ratio 19.2 (6-22); Bilirubin Total 0.4 mg/dL (0.2-1.3); Blood Urea Nitrogen 23 mg/dL (9-20); Carbon Dioxide 26 mmol/L (22-32); Chloride 107 mmol/L (98-107); Estimated Glomerular Filt Rate > 60.0 mL/min (>60); Ethanol (ETOH) 272 mg/dL; Globulin 2.8 g/dL (1.7-4.1); Glucose 112 mg/dL (70-100); HEMOLYSIS < 15 (0-50); Lipase 439 U/L (23-300); Potassium 3.9 mmol/L (3.4-5.1); Sodium 145 mmol/L (137-145); Total Protein 6.7 g/dL (6.3-8.2)
[2019-04-26] MEDS: SUCCINYLCHOLINE 100 MG/5 ML INJ 120 MG IV ×2 (14:40→15:08)
[2019-04-26] MEDS: ETOMIDATE 2 MG/ML 10 ML VIAL 20 MG IV ×2 (14:41→15:07)
[2019-04-26] MEDS: KETAMINE 500 MG/10 ML INJ 300 MG IV (14:59)
[2019-04-26] MEDS: ONDANSETRON 4 MG/2 ML INJ IV (15:09)
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
--- NOTE | 2019-04-26 15:21 | DI.RAD.S_ITS ---
PROCEDURE: XR ELBOW RT 2V INDICATIONS: possible fracture TECHNIQUE: 2 views of the elbow were acquired. COMPARISON: [facility], CR, XR WRIST RT MIN 3V, 04/26/2019, 15:26. [facility], CR, XR FOREARM RT 2V, 04/26/2019, 15:20. [facility], CR, XR CHEST 1V, 04/26/2019, 15:17. [facility], CT, CT CERVICAL SPINE WO CON, 04/26/2019, 14:26. [facility], CT, CT FACIAL BONES WO CON, 04/26/2019, 14:26. [facility], CT, CT HEAD/BRAIN WO CON, 04/26/2019, 14:26. [facility], CR, XR CHEST 1V, 04/26/2019, 14:08. FINDINGS: Images are limited by nonstandard position. Bones: No fractures or dislocations. No suspicious bony lesions. The overlying casting material limits evaluation of fine detail. Soft tissues: No significant elbow joint effusion. No suspicious soft tissue calcifications. IMPRESSION: No displaced fractures are seen on these images. Note: Case discussed by telephone with Dr. Zamora at 3:38 PM [place] time on April 26, 2019. Dictated by: Jimbo Clayton M.D. on 04/26/2019 at 14:44 Approved by: Jimbo Clayton M.D. on 04/26/2019 at 14:44
--- NOTE | 2019-04-26 15:21 | DI.RAD.S_ITS ---
PROCEDURE: XR WRIST RT MIN 3V INDICATIONS: possible fracture TECHNIQUE: 3 views of the wrist were acquired. COMPARISON: [facility], CR, XR ELBOW RT 2V, 04/26/2019, 15:24. [facility], CR, XR FOREARM RT 2V, 04/26/2019, 15:20. [facility], CR, XR CHEST 1V, 04/26/2019, 15:17. [facility], CT, CT CERVICAL SPINE WO CON, 04/26/2019, 14:26. [facility], CT, CT FACIAL BONES WO CON, 04/26/2019, 14:26. [facility], CT, CT HEAD/BRAIN WO CON, 04/26/2019, 14:26. [facility], CR, XR CHEST 1V, 04/26/2019, 14:08. FINDINGS: Bones: No fractures or dislocations. No suspicious bony lesions. The overlying casting material limits evaluation of fine detail. Soft tissues: No suspicious soft tissue calcifications. IMPRESSION: No displaced fractures can be seen on these images. Note: Case discussed by telephone with Dr. Zamora at 3:38 PM [place] time on April 26, 2019. Dictated by: Jimbo Clayton M.D. on 04/26/2019 at 14:43 Approved by: Jimbo Clayton M.D. on 04/26/2019 at 14:43
[2019-04-26] MEDS: PROPOFOL 200 MG/20 ML VIAL 50 MG IV (15:30)
[2019-04-26] MEDS: fentaNYL 1,000 MCG in DEXTROSE 5% IN WATER 250 ML 17.464 ML IV (15:32)
[2019-04-26] MEDS: MIDAZOLAM 50 MG in DEXTROSE 5% IN WATER 250 ML 9.61 ML IV (15:32)
[2019-04-26] MEDS: fentaNYL 100 MCG/2 ML INJ (15:51)
[2019-04-26 16:15] LABS: HCO3 ABG 26 mmol/L (22-26); PCO2 ABG 61.9 mmHg (35-45); PO2 ABG 337 mmHg (80-100); TCO2 ABG 27 mmol/L (21-31); pH ABG 7.23 (7.35-7.45)
[2019-04-26 16:16] LABS: Fractionated Inspired Oxygen 100; Oxygen Saturation ABG 100 % (95-100)
--- NOTE | 2019-04-26 16:17 | PC.NURSE ---
See paper trauma flow sheet
[2019-04-26] MEDS: SODIUM CHLORIDE 0.9% 1,000 ML 150 ML IV ×2 (16:43→23:22)
[2019-04-26 16:47] LABS: Urine Amphetamines Negative (Negative); Urine Barbiturates Negative (Negative); Urine Benzodiazepines Negative (Negative); Urine Cocaine Negative (Negative); Urine MDMA Negative (Negative); Urine Methadone Negative (Negative); Urine Methamphetamines Negative (Negative); Urine Morphine/Opi cutoff 2000 Negative (Negative); Urine Oxycodone Negative (Negative); Urine Phencyclidine Positive (Negative); Urine Tetrahydrocannabinol Positive (Negative); Urine Tricyclic Antidepressant Negative (Negative)
[2019-04-26] MEDS: TET,DIPH,PERTUSS(ACELL),VAC/PF 0.5 ML SYRINGE IM (17:15)
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
--- NOTE | 2019-04-26 20:11 | PC.NURSE ---
Addendum entered by Sharon Reyes R.N. 04/26/19 21:56: 2000 - Son Oliverio called back. Updated on patient. Original Note: 0 - Patient admitted to room 105. Brought over on stretcher by nursing staff. Transferred to bed using slider board. Patient sedated on ventilator per orders. Patient given bed bath and positioned comfortably in bed.
[2019-04-26 20:55] LABS: HEMOLYSIS < 15 (0-50); Potassium 4.1 mmol/L (3.4-5.1)
[2019-04-26 20:57] LABS: Alanine Aminotransferase 166 IU/L (21-72); Albumin 3.1 g/dL (3.5-5.0); Albumin Globulin Ratio 1.2 (1.0-2.8); Alkaline Phosphatase 37 U/L (38-126); Aspartate Aminotransferase 276 IU/L (17-59); BUN Creatinine Ratio 21.8 (6-22); Bilirubin Total 0.9 mg/dL (0.2-1.3); Blood Urea Nitrogen 24 mg/dL (9-20); Calcium 8.1 mg/dL (8.4-10.2); Carbon Dioxide 24 mmol/L (22-32); Chloride 110 mmol/L (98-107); Estimated Glomerular Filt Rate > 60.0 mL/min (>60); Globulin 2.5 g/dL (1.7-4.1); Glucose 125 mg/dL (70-100); Sodium 143 mmol/L (137-145); Total Protein 5.6 g/dL (6.3-8.2)
[2019-04-26] MEDS: fentaNYL 1,000 MCG in DEXTROSE 5% IN WATER 250 ML 49.896 ML IV (21:28)
[2019-04-26] MEDS: MIDAZOLAM 50 MG in DEXTROSE 5% IN WATER 250 ML 48.048 ML IV (21:33)
[2019-04-27] VITALS (28 sets, daily range): BP systolic 117–189; BP diastolic 76–117; PULSE 70–131; RESP 14–26; TEMP 35.9–37.8; O2SAT 92–100
[2019-04-27] MEDS: MIDAZOLAM 50 MG in DEXTROSE 5% IN WATER 250 ML 48.048 ML IV (03:04)
[2019-04-27] MEDS: fentaNYL 1,000 MCG in DEXTROSE 5% IN WATER 250 ML 49.896 ML IV ×2 (03:05→07:59)
[2019-04-27 05:12] LABS: Add Manual Diff / Slide Review NO; Basophils Absolute Auto 0 /uL (0-100); Basophils Percent Auto 0.4 % (0-2); Eosinophils Absolute Auto 100 /uL (0-450); Eosinophils Percent Auto 0.6 % (2-4); Hematocrit 33.4 % (41-53); Hemoglobin 11.4 g/dL (13.5-17.5); Lymphocytes Absolute Auto 2200 /uL (1100-4500); Lymphocytes Percent Auto 26.1 % (25-40); Mean Corpuscular HGB Conc 34.3 % (30-36); Mean Corpuscular Volume 90.3 fL (80-100); Monocytes Absolute Auto 700 /uL (0-900); Neutrophils Absolute Auto 5400 /uL (1500-7000); Neutrophils Percent Auto 64.9 % (50-75); Platelet Count 177 X10^3/uL (150-400); Red Blood Cell Count 3.69 X10^6/uL (4.5-5.9); Red Cell Distribution Width 13.7 % (11.6-14.8); White Blood Cell Count 8.3 X10^3/uL (4.5-11.0)
[2019-04-27] MEDS: SODIUM CHLORIDE 0.9% 1,000 ML 150 ML IV ×3 (05:58→19:05)
--- NOTE | 2019-04-27 06:11 | PC.NURSE ---
Patient has remained on ventilator overnight with no change in settings from previous shift, FIO2 60% TV 450 PEEP 5 RR 26, patient is breathing with vent, SpO2 98-100%. Sedated with Fentanyl gtt at 2mcg/kg/hr and Versed gtt at 0.1mcg/kg/hr, no changes to titration, RASS mostly -2, but patient will become agitated during sx, turning, and other care. Hard cervical collar remains in place, facial edema and bruising noted, rhino rocket in Rt nares. OGT to LIS with scant thick bloody drainage, HOB elevated at 30 degrees, soft wrist restraints, see protocol and assessment notes.
[2019-04-27 08:02] LABS: RBC Urine None Seen (0-5/HPF)
[2019-04-27 08:06] LABS: Appearance Urine UA TURBID; Bilirubin Urine UA NEGATIVE (NEGATIVE); Color Urine UA YELLOW; Glucose Urine UA NEGATIVE (Negative); Ketones Urine UA NEGATIVE (NEGATIVE); Leukocyte Esterase Urine UA TRACE (NEGATIVE); Nitrite Urine UA NEGATIVE (Negative); Occult Blood Urine UA TRACE-LYSED (Negative); Protein Urine UA TRACE (Negative); Urobilinogen Urine UA 0.2 E.U./dL (0.2); pH Urine UA 6.5 (4.5-8.0)
[2019-04-27] MEDS: ENOXAPARIN 40 MG/0.4 ML SYRINGE SUBCUT (08:06)
[2019-04-27 08:19] LABS: Amorphous Sediment Urine 4+; Bacteria Urine Occasional (0-1); WBC Urine 0-1/HPF (0-5/HPF)
[2019-04-27 08:20] LABS: Culture Indicated Urine Specimen Cultured
--- NOTE | 2019-04-27 08:53 | RT ---
OK TO EXTUBATE PER DR. TOSCANO WITHOUT TRADITIONAL WEANING TRIAL ONCE PT IS AWAKE AND FOLLOWING COMMANDS. CUFF LEAK NOTED WITH DEPLETION OF CUFF AIR.
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
--- NOTE | 2019-04-27 09:13 | PC.NURSE ---
pt received on 60% fio2 via mechanical vent., on fentanyl and versed gtts, and restrained. RT present and did vent check and Dr. Garcia roundbrianna reiterating his previous orders to wean to extubate - fio2 decreased to 40% and fentanyl gtt turned to off in attempt to begin to lighten sedation. urine spec sent ( order from ed) hypertensive at 145/100 and hr sinus rhythm rate of 93
[2019-04-27] MEDS: NALOXONE 0.4 MG/ML VIAL 0.2 MG IV (10:05)
--- NOTE | 2019-04-27 10:19 | PC.NURSE ---
Addendum entered by Bertha Byers R.N. 04/27/19 13:39: pt continuing to wake up slowly- presently on 8L NRB MASK - he frequently pulls mask off and desats to mid 80's on RA- speech somewhat garbled but able to understand few words- moaning and groaning out with independent turns in bed- nasal tampon removed from right nare by MD- continues to have slight bloody drizzle from nares Original Note: extubate pt extubated at 0940 to GA but then failed due to apneic spells and decreased SPO2- placed NRB @ 100% and given 0.3mg of narcan which was effective and pt resumed some noisy respirations and spo2 99% ST @ 121BPM AND SUCTIONED FOR BLOODY SECRETIONS FROM ORAL CAVITY- MINIMAL VERBAGE BUT OCCASSIONAL MOANING- PRESENTLY AT 100% NRB -
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
[2019-04-27] MEDS: THIAMINE 100 MG TABLET PO ×2 (14:26→14:28)
[2019-04-27] MEDS: cloNIDine 0.1 MG TABLET PO (14:26)
--- NOTE | 2019-04-27 16:05 | PC.NURSE ---
Addendum entered by Sharon Reyes R.N. 04/27/19 22:50: 2230 - Updated Nurse practitioner of continued high blood pressure. Addendum entered by Sharon Reyes R.N. 04/27/19 21:56: Patient has slowly weaned down on oxygen to 2L via [place]. Currently 95% oxygen saturation. Addendum entered by Sharon Reyes R.N. 04/27/19 19:58: 1955 - Nurse practitioner updated on continued high blood pressure. See new order for metoprolol. Original Note: 1605 - Patient continues to have high blood pressure of 182/104. Updated physician who states he will be coming down shortly to evaluate.
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
[2019-04-27] MEDS: LORazepam 2 MG/ML INJ IV ×2 (17:10→21:46)
[2019-04-27] MEDS: LISINOPRIL 20 MG TABLET PO (17:21)
[2019-04-27] MEDS: chlordiazePOXIDE 25 MG CAPSULE 50 MG PO (17:21)
[2019-04-27] MEDS: KETOROLAC 15 MG/ML VIAL IV (19:08)
[2019-04-27 19:10] LABS: Alanine Aminotransferase 106 IU/L (21-72); Albumin 3.2 g/dL (3.5-5.0); Albumin Globulin Ratio 1.2 (1.0-2.8); Alkaline Phosphatase 36 U/L (38-126); Aspartate Aminotransferase 53 IU/L (17-59); BUN Creatinine Ratio 22.2 (6-22); Bilirubin Total 0.6 mg/dL (0.2-1.3); Blood Urea Nitrogen 20 mg/dL (9-20); Carbon Dioxide 26 mmol/L (22-32); Chloride 108 mmol/L (98-107); Estimated Glomerular Filt Rate > 60.0 mL/min (>60); Globulin 2.6 g/dL (1.7-4.1); Glucose 109 mg/dL (70-100); HEMOLYSIS < 15 (0-50); Potassium 4.1 mmol/L (3.4-5.1); Sodium 142 mmol/L (137-145); Total Protein 5.8 g/dL (6.3-8.2)
[2019-04-27] MEDS: METOPROLOL IR 25 MG TABLET 12.5 MG PO (20:08)
[2019-04-27] MEDS: LORazepam 1 MG TABLET 2 MG PO (23:28)
[2019-04-28] VITALS (20 sets, daily range): BP systolic 135–226; BP diastolic 63–130; PULSE 84–105; RESP 15–24; TEMP 36.1–37.5; O2SAT 86–93
[2019-04-28] MEDS: TRAMADOL 50 MG TABLET PO ×3 (00:57→20:29)
[2019-04-28] MEDS: chlordiazePOXIDE 25 MG CAPSULE 50 MG PO (00:57)
[2019-04-28] MEDS: LISINOPRIL 20 MG TABLET PO (00:57)
[2019-04-28] MEDS: LORazepam 2 MG/ML INJ IV ×5 (02:45→21:07)
[2019-04-28] MEDS: SODIUM CHLORIDE 0.9% 1,000 ML 150 ML IV ×4 (02:46→21:16)
[2019-04-28] MEDS: KETOROLAC 15 MG/ML VIAL IV ×2 (05:04→19:46)
[2019-04-28 05:20] LABS: Add Manual Diff / Slide Review NO; Basophils Absolute Auto 0 /uL (0-100); Basophils Percent Auto 0.2 % (0-2); Eosinophils Absolute Auto 100 /uL (0-450); Eosinophils Percent Auto 1.6 % (2-4); Hematocrit 31.3 % (41-53); Hemoglobin 10.7 g/dL (13.5-17.5); Lymphocytes Absolute Auto 1500 /uL (1100-4500); Lymphocytes Percent Auto 19.6 % (25-40); Mean Corpuscular HGB Conc 34.2 % (30-36); Mean Corpuscular Volume 90.5 fL (80-100); Monocytes Absolute Auto 400 /uL (0-900); Monocytes Percent Auto 5.2 % (3-14); Neutrophils Absolute Auto 5600 /uL (1500-7000); Neutrophils Percent Auto 73.4 % (50-75); Platelet Count 124 X10^3/uL (150-400); Red Blood Cell Count 3.46 X10^6/uL (4.5-5.9); Red Cell Distribution Width 13.8 % (11.6-14.8); White Blood Cell Count 7.7 X10^3/uL (4.5-11.0)
[2019-04-28 05:29] LABS: Alanine Aminotransferase 76 IU/L (21-72); Albumin 2.8 g/dL (3.5-5.0); Albumin Globulin Ratio 1.1 (1.0-2.8); Alkaline Phosphatase 37 U/L (38-126); Aspartate Aminotransferase 32 IU/L (17-59); BUN Creatinine Ratio 22.5 (6-22); Bilirubin Total 0.7 mg/dL (0.2-1.3); Blood Urea Nitrogen 18 mg/dL (9-20); Calcium 6.6 mg/dL (8.4-10.2); Carbon Dioxide 27 mmol/L (22-32); Chloride 109 mmol/L (98-107); Estimated Glomerular Filt Rate > 60.0 mL/min (>60); Globulin 2.5 g/dL (1.7-4.1); Glucose 93 mg/dL (70-100); HEMOLYSIS < 15 (0-50); Magnesium 1.3 mg/dL (1.6-2.3); Potassium 3.4 mmol/L (3.4-5.1); Sodium 140 mmol/L (137-145); Total Protein 5.3 g/dL (6.3-8.2)
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
[2019-04-28] MEDS: MAGNESIUM SULFATE 2 GM/50 ML PIGGYBACK IV (08:14)
[2019-04-28] MEDS: THIAMINE 100 MG TABLET PO (08:33)
[2019-04-28] MEDS: chlordiazePOXIDE 25 MG CAPSULE PO ×2 (08:34→18:10)
[2019-04-28] MEDS: LISINOPRIL 20 MG TABLET 40 MG PO (08:35)
[2019-04-28] MEDS: MULTIVITAMIN 1 TABLET 1 TAB PO (08:36)
[2019-04-28] MEDS: FOLIC ACID 1 MG TABLET PO (08:36)
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
[2019-04-28] MEDS: LORazepam 1 MG TABLET 2 MG PO ×2 (11:03→18:10)
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
--- NOTE | 2019-04-28 17:37 | PC.NURSE ---
Addendum entered by Raquel Rasmussen R.N. 04/28/19 21:22: pt still c/o of back pain. Asked for Tramadol. Medicated with tramadol and tylenol. Pt thinks he is on a bus, asking what stop this is. Addendum entered by Raquel Rasmussen R.N. 04/28/19 19:52: pt restless, trying to get OOB. Pt c/o being uncomfortable. Medicated with Toradol. Original Note: rossy note pt impulsive. Pt dozes off to sleep, mumbles incoherently in sleep. Pt then rouses, tries to sit up in bed, get OOB. Pt says he needs to wash up. Pt has washed his face 3 times already this shift. Right eye is swollen shut and bruised. Hematoma to right forehead is oozing blood. Xeroform gauze drsg intact. Pt unsteady and uncoordinated when assisted to BSC for void. Pt frequently picks at O2 tubing, but usually not able to actually grab it. When sleeping, pt's O2 sats dropped as low as 86% on 5 L high flow cannula. O2 titrated up to 8 L. Pt has sleep apnea and shallow breathing when asleep.
[2019-04-28 18:45] LABS: HEMOLYSIS < 15 (0-50); Potassium 3.4 mmol/L (3.4-5.1); Sodium 138 mmol/L (137-145)
[2019-04-28 18:46] LABS: Alanine Aminotransferase 64 IU/L (21-72); Albumin 3.1 g/dL (3.5-5.0); Albumin Globulin Ratio 1.1 (1.0-2.8); Alkaline Phosphatase 44 U/L (38-126); Aspartate Aminotransferase 23 IU/L (17-59); BUN Creatinine Ratio 17.1 (6-22); Bilirubin Total 0.8 mg/dL (0.2-1.3); Blood Urea Nitrogen 12 mg/dL (9-20); Calcium 6.7 mg/dL (8.4-10.2); Carbon Dioxide 25 mmol/L (22-32); Chloride 108 mmol/L (98-107); Estimated Glomerular Filt Rate > 60.0 mL/min (>60); Globulin 2.8 g/dL (1.7-4.1); Glucose 108 mg/dL (70-100); Total Protein 5.9 g/dL (6.3-8.2)
[2019-04-28] MEDS: ACETAMINOPHEN 325 MG TABLET 650 MG PO (20:29)
[2019-04-28] MEDS: HYDRALAZINE 25 MG TABLET PO (21:58)
[2019-04-29] VITALS (45 sets, daily range): BP systolic 78–202; BP diastolic 38–118; PULSE 14–121; RESP 12–36; TEMP 36.8–37.3; O2SAT 87–100
[2019-04-29] MEDS: chlordiazePOXIDE 25 MG CAPSULE PO ×2 (00:58→07:34)
[2019-04-29] MEDS: TRAMADOL 50 MG TABLET PO (03:14)
[2019-04-29] MEDS: ACETAMINOPHEN 325 MG TABLET 650 MG PO (03:14)
[2019-04-29] MEDS: HYDRALAZINE 25 MG TABLET PO (04:00)
[2019-04-29] MEDS: SODIUM CHLORIDE 0.9% 1,000 ML 150 ML IV (04:04)
[2019-04-29 04:51] LABS: Add Manual Diff / Slide Review NO; Basophils Absolute Auto 0 /uL (0-100); Basophils Percent Auto 0.4 % (0-2); Eosinophils Absolute Auto 100 /uL (0-450); Eosinophils Percent Auto 1.5 % (2-4); Hematocrit 29.5 % (41-53); Hemoglobin 10.2 g/dL (13.5-17.5); Lymphocytes Absolute Auto 1100 /uL (1100-4500); Mean Corpuscular HGB Conc 34.8 % (30-36); Mean Corpuscular Hemoglobin 31.3 PG (26-34); Mean Corpuscular Volume 90.1 fL (80-100); Monocytes Absolute Auto 400 /uL (0-900); Monocytes Percent Auto 4.7 % (3-14); Neutrophils Absolute Auto 7300 /uL (1500-7000); Neutrophils Percent Auto 81.4 % (50-75); Platelet Count 112 X10^3/uL (150-400); Red Blood Cell Count 3.27 X10^6/uL (4.5-5.9); Red Cell Distribution Width 13.2 % (11.6-14.8); White Blood Cell Count 8.9 X10^3/uL (4.5-11.0)
[2019-04-29 04:58] LABS: Alanine Aminotransferase 55 IU/L (21-72); Albumin 2.9 g/dL (3.5-5.0); Alkaline Phosphatase 40 U/L (38-126); Aspartate Aminotransferase 23 IU/L (17-59); BUN Creatinine Ratio 14.3 (6-22); Bilirubin Total 0.7 mg/dL (0.2-1.3); Blood Urea Nitrogen 10 mg/dL (9-20); Carbon Dioxide 27 mmol/L (22-32); Chloride 106 mmol/L (98-107); Estimated Glomerular Filt Rate > 60.0 mL/min (>60); Globulin 2.8 g/dL (1.7-4.1); Glucose 101 mg/dL (70-100); HEMOLYSIS < 15 (0-50); Magnesium 1.6 mg/dL (1.6-2.3); Potassium 3.1 mmol/L (3.4-5.1); Sodium 136 mmol/L (137-145); Total Protein 5.7 g/dL (6.3-8.2)
[2019-04-29 05:03] LABS: Calcium 6.3 mg/dL (8.4-10.2)
[2019-04-29 05:10] LABS: Troponin I 0.013 ng/mL (0.01-0.034)
[2019-04-29] MEDS: POTASSIUM CHLORIDE 40 MEQ in SODIUM CHLORIDE 0.9% 500 ML 130 ML IV (05:31)
[2019-04-29] MEDS: MAGNESIUM SULFATE 2 GM/50 ML PIGGYBACK IV (05:32)
[2019-04-29] MEDS: SODIUM CHLORIDE 0.9% 1,000 ML 100 ML IV (05:40)
[2019-04-29] MEDS: CALCIUM GLUCONATE 4.65 MEQ in SODIUM CHLORIDE 0.9% 50 ML 120 ML IV (06:03)
--- NOTE | 2019-04-29 06:38 | PM.EVENT ---
Event Note Date Patient Seen: 04/29/19 Time Patient Seen: 03:00 Event Note: Patient was noted to be having PACs with poor perfusion and a recorded heart rate drop into the 40s. Requested ECG, troponin and am labs. Patient was alert to self, could obey commands briefly. ECG indicated sinus tachycardia, but did not reveal any concerning findings such as a bundle or heart block. Patients values for potassium, calcium and magnesium resulted low or critically low. He was repleted with IV potassium 40 meQ, calcium 4.6 mEq, and magnesium 2 grams. His blood pressure has also been consistently high, he was given one dose of po hydralazine 25 and his fluid rate reduced from 150 ml/hour to 100 ml/hour. His systolics are now in the 160s down from the low 200s. He has a continued high O2 demand of 8 liters and saturating at 94%.
[2019-04-29] MEDS: THIAMINE 100 MG TABLET PO (07:34)
[2019-04-29] MEDS: LISINOPRIL 20 MG TABLET 40 MG PO (07:34)
[2019-04-29] MEDS: MULTIVITAMIN 1 TABLET 1 TAB PO (07:35)
[2019-04-29] MEDS: LORazepam 2 MG/ML INJ IV ×17 (07:35→22:50)
[2019-04-29] MEDS: ONDANSETRON 4 MG/2 ML INJ IV (07:59)
--- NOTE | 2019-04-29 08:16 | PC.NURSE ---
Addendum entered by Sarah Stephens R.N. 04/29/19 12:46: Pt given 130mg IV push Phenobarbital. Repositioned Q30min. New PIV placed in Left Brachial. Oral care given. CXR completed. Addendum entered by Sarah Stephens R.N. 04/29/19 11:01: Dr werner at bedside. Pt agitated. Given 4mg IV Ativan now for elevated CIWA. Will continue giving 4mg each tiem Q15 until CIWA scale <8. Addendum entered by Sarah Stephens R.N. 04/29/19 10:19: Three nurses at bedside de-escalating agitation for patient. Given 2mg IV Ativan at 10:09, pt still pulling on restraints and trying to climb out of bed. Restraints still in place. Pt uncooperative, extremely agitated, pulling on rails and retraint strings. Will discuss plan once MD rounds on pt. Addendum entered by Sarah Stephens R.N. 04/29/19 09:40: 09:40. Pt still attempting to sit up in bed, stating he is leaving, pulling jerking on bed rails. Pt has BUE in restraints in place. HR 113, BP 190/104. RR 28. Sats 88 on 8LNC, giving supplemental support with NRB in front of face- sats increase to 94%. Givign verbal reassurance, reorienting. Unable to redirect patient whatsoever. 2mg iv ativan being given per orders at 09:45 Addendum entered by Sarah Stephens R.N. 04/29/19 09:24: Pt scoring >11 on last CIWA scale. Given 2mg IV Ativan and IV Haldol. At 0910, pt aroused and extremely agitated- trying to climb out of bed stating he is leaving now and lives across the street. Three nurses at bedside trying to calm patient down, given 2 more mg IV Ativan. Pt refusing to lay down in bed, pulling himself to edge of bed despite three nurses tryign to pull him back into bed. Pt pulling on IV, ripped BP cuff and O2 off. Pt put into two point upper extremity restraints 0912. Dr werner notified. Will continue to calm patient and give IV Ativan q15 until restraints can be removed. Pt on NRB for sats in low 80s. Sonorous now, attempted oral suctioning with lei davies result. Sats 96% with NRB being held in front of face to decrease agitation. Will continue to support respiratory and CIWA scale interventions. Original Note: Pt wtih a CIWA scale of 11 at change of shift. Given 4mg IV Zofran and 2mg IV Ativan via PIV in Left AC. BP 170/110's. Aggresive hygiene toiletry this am to wash off blood from injury. Will speak with to request f/u labs post replacements of Mag, K, Ca. Pt on fall precautions, bed alarm on, reoriented, bumper pads for seizure precautions as well.
[2019-04-29] MEDS: HALOPERIDOL 5 MG/ML VIAL 2 MG IV ×2 (08:58→11:39)
[2019-04-29] MEDS: ENOXAPARIN 40 MG/0.4 ML SYRINGE SUBCUT (10:22)
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
[2019-04-29] MEDS: HALOPERIDOL 5 MG/ML VIAL IV (12:12)
--- NOTE | 2019-04-29 12:22 | DI.RAD.S_ITS ---
PROCEDURE: XR CHEST 1V INDICATIONS: r/o aspiration TECHNIQUE: One view of the chest was acquired. COMPARISON: [facility], CR, XR CHEST 1V, 04/26/2019, 15:17. [facility], CR, XR CHEST 1V, 04/26/2019, 14:08. FINDINGS: Surgical changes and devices: None. Lungs and pleura: Lungs are abnormal with retrocardiac left lower lobe pneumonia and mild to moderate pneumonia medial right lung base. No pleural effusions or pneumothorax. Mediastinum: Mediastinal contours appear normal. Heart size is normal. Bones and chest wall: No suspicious bony lesions. Overlying soft tissues appear unremarkable. IMPRESSION: Bibasilar pneumonia, left greater than right. Dictated by: Edis Breaux M.D. on 04/29/2019 at 12:54 Approved by: Edis Breaux M.D. on 04/29/2019 at 12:55
[2019-04-29] MEDS: PHENobarbital 130 MG/ML VIAL IV (12:38)
[2019-04-29] MEDS: HYDRALAZINE 20 MG/ML VIAL 10 MG IV (12:53)
--- NOTE | 2019-04-29 13:15 | DI.RAD.S_ITS ---
PROCEDURE: XR CHEST 1V INDICATIONS: s/p intubation TECHNIQUE: One view of the chest was acquired. COMPARISON: [facility], CR, XR CHEST 1V, 04/29/2019, 12:28. [facility], CR, XR CHEST 1V, 04/26/2019, 15:17. FINDINGS: Surgical changes and devices: Endotracheal tube in normal position with its tip approximately 3 cm above the dorcas.. Lungs and pleura: Lungs are worsening in appearance with a greater degree of alveolar edema/aspiration pneumonitis or pneumonia within the lung parenchyma bilaterally greater on the left than the right as was previously the case. No pleural effusions or pneumothorax. Mediastinum: Mediastinal contours appear normal. Heart size is normal. Bones and chest wall: No suspicious bony lesions. Overlying soft tissues appear unremarkable. IMPRESSION: Worsening bilateral pneumonia, endotracheal tube positioning has been performed with the endotracheal tube tip approximately 3 cm above the dorcas and below the level of the medial clavicular heads. If clinically desired the endotracheal tube could be withdrawn approximately 2 cm. Dictated by: Edis Breaux M.D. on 04/29/2019 at 13:50 Approved by: Edis Breaux M.D. on 04/29/2019 at 13:51
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
[2019-04-29 13:45] LABS: HCO3 ABG 21 mmol/L (22-26); PCO2 ABG 80.6 mmHg (35-45); PO2 ABG 86 mmHg (80-100); TCO2 ABG 23 mmol/L (21-31); pH ABG 7.02 (7.35-7.45)
[2019-04-29 13:47] LABS: Oxygen Saturation ABG 89 % (95-100)
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
[2019-04-29] MEDS: MORPHINE 2 MG/ML INJ IV (14:00)
[2019-04-29 14:07] LABS: Fractionated Inspired Oxygen 100; HCO3 ABG 21 mmol/L (22-26); Oxygen Saturation ABG 99 % (95-100); PCO2 ABG 50.8 mmHg (35-45); PO2 ABG 143 mmHg (80-100); TCO2 ABG 22 mmol/L (21-31); pH ABG 7.22 (7.35-7.45)
[2019-04-29] MEDS: PROPOFOL 1,000 MG/100 ML VIAL 10.992 MG IV (14:09)
--- NOTE | 2019-04-29 14:11 | DI.RAD.S_ITS ---
PROCEDURE: XR CHEST 1V INDICATIONS: confirm OGT placement TECHNIQUE: One view of the chest was acquired. COMPARISON: [facility], CR, XR CHEST 1V, 04/29/2019, 13:23. [facility], CR, XR CHEST 1V, 04/29/2019, 12:28. FINDINGS: Surgical changes and devices: Endotracheal and esophagogastric tube positioning appears normal. Lungs and pleura: Lungs are abnormal, with patchy bilateral pneumonia is seen at the retrocardiac left lung base. No pleural effusions or pneumothorax. Mediastinum: Mediastinal contours appear normal. Heart size is normal. Bones and chest wall: No suspicious bony lesions. Overlying soft tissues appear unremarkable. IMPRESSION: Patchy bilateral pneumonia greater on the left than the right as has been previously the case. Endotracheal and esophagogastric tube positioning appears normal. Dictated by: Edis Breaux M.D. on 04/29/2019 at 15:36 Approved by: Edis Breaux M.D. on 04/29/2019 at 15:37
--- NOTE | 2019-04-29 14:14 | PC.NURSE ---
Addendum entered by Sarah Stephens R.N. 04/29/19 14:57: Pt with IV Bolus of NS 500cc for pressures 70s/30s. Attempted x2 to place new PIV- unable at this time. Propofol at 30mcg/kg/hr. Dr Kelly aware of pt lab results. Original Note: Respiratory Arrest 12:50. Code called and pt resuscitated and intubated. Post Intubation: Pt on PRVC Rate of 30, O2 90%, TV 400, PEEP 5. OG and [place] placed. Sats 100%.
[2019-04-29 14:20] LABS: Alanine Aminotransferase 86 IU/L (21-72); Albumin 3.2 g/dL (3.5-5.0); Albumin Globulin Ratio 1.1 (1.0-2.8); Alkaline Phosphatase 50 U/L (38-126); Aspartate Aminotransferase 98 IU/L (17-59); BUN Creatinine Ratio 11.4 (6-22); Bilirubin Total 0.9 mg/dL (0.2-1.3); Blood Urea Nitrogen 8 mg/dL (9-20); Carbon Dioxide 21 mmol/L (22-32); Chloride 103 mmol/L (98-107); Estimated Glomerular Filt Rate > 60.0 mL/min (>60); Globulin 2.8 g/dL (1.7-4.1); Glucose 196 mg/dL (70-100); HEMOLYSIS 16 (0-50); Sodium 138 mmol/L (137-145)
[2019-04-29 14:24] LABS: Hematocrit 32.9 % (41-53); Hemoglobin 11.2 g/dL (13.5-17.5); Mean Corpuscular HGB Conc 34.1 % (30-36); Mean Corpuscular Hemoglobin 31.4 PG (26-34); Mean Corpuscular Volume 92.1 fL (80-100); Red Blood Cell Count 3.58 X10^6/uL (4.5-5.9); Red Cell Distribution Width 13.8 % (11.6-14.8); White Blood Cell Count 26.8 X10^3/uL (4.5-11.0)
[2019-04-29 14:25] LABS: Calcium 6.7 mg/dL (8.4-10.2)
[2019-04-29 14:28] LABS: Add Manual Diff / Slide Review YES
[2019-04-29] MEDS: SODIUM CHLORIDE 0.9% 500 ML 1000 ML IV (14:30)
--- NOTE | 2019-04-29 14:32 | DIET.PN ---
Addendum entered by Stacie Garcia 04/29/19 15:26: EER: 2000 kcal @ 30 maritza/kg (nutritional BW) 100-130 g pro @ 1.5-2.0 g/kg 2300 ml fluid @ 35 ml/kg Interventions: If patient to start Enteral Feeding, recommend Glucerna 1.5 for lower CHO to reduce resp quotient @ 55 ml/hr continuous feed w/ 200ml free water flushes q4hr. Begin w/20ml/hr, increasing by 10 ml q4h until reaching the goal rate. Provides 1980 maritza 109 g pro Monitoring/Evaluations: GRV q4h for tolerance Original Note: Dietary Progress Note Assessment: 58y M referred to nutrition for ventilator +NPO status Pt sleeping when arrived for assessment. Nurse indicates he has not been able to eat. HT: 160cm WT: 91.6 kg BMI: 35.8 Labs: Mg 1.3 (L), TP 5.3 (L), alb 2.8 (L), etoh on admit 272 (H) Nutrition Diagnosis: At risk for acute injury malnutrition r/t inability to consume sufficient energy aeb NPO x 4 d. Interventions: sending non-acidic PRO smoothie at lunch for ease of eating while groggy and swollen tongue in addition to HH tray. Monitoring/Evaluations: Will continue to monitor PO intake. Evaluate when alert.
[2019-04-29] MEDS: AMPICILLIN/SULBACTAM 3 GM 3 GM in SODIUM CHLORIDE 0.9% 100 ML IV ×2 (14:36→20:50)
[2019-04-29 14:44] LABS: Neutrophils Absolute Manual 17956 /uL (3000-5900); Total Cells Counted 100
[2019-04-29 14:45] LABS: Platelet Estimate Decreased on smear; RBC Morphology Normal Morphology
[2019-04-29 14:46] LABS: Platelet Count 182 X10^3/uL (150-400)
[2019-04-29] MEDS: DEXTROSE 5%-0.45NS W/KCL 40MEQ 1,000 ML 150 MEQ IV (16:00)
--- NOTE | 2019-04-29 16:10 | DI.RAD.S_ITS ---
PROCEDURE: XR CHEST FOR PICC 1V INDICATIONS: picc placement COMPARISON: [facility], [place], XR CHEST 1V, 04/29/2019, 14:20. [facility], CR, XR CHEST 1V, 04/29/2019, 13:23. FINDINGS: PICC was placed by the intravenous therapy team from the right side. Fluoroscopic spot film demonstrates tip of PICC in the distal SVC. IMPRESSION: Tip of PICC lies within the distal SVC. Note is made of generalized pulmonary edema, with dense consolidation at the medial right lower lobe and the retrocardiac left lung base. Dictated by: Edis Breaux M.D. on 04/29/2019 at 17:22 Approved by: Edis Breaux M.D. on 04/29/2019 at 17:23
--- NOTE | 2019-04-29 17:10 | PC.NURSE ---
1700 - Patient transferred from bed to a new bed as the other bed was having some positioning issues. Transferred to new bed with RT and nursing staff assistance. Patient now resting peacefully in new bed. Patient moves extremities and makes faces when moved. Propofol titrated per orders for comfort.
[2019-04-29] MEDS: CALCIUM GLUCONATE 9.3 MEQ in SODIUM CHLORIDE 0.9% 50 ML 140 ML IV (17:16)
--- NOTE | 2019-04-29 17:16 | DI.US.S_ITS ---
PROCEDURE: US ABDOMEN COMPLETE INDICATIONS: ETOH ABUSE; TRANSAMINITIS TECHNIQUE: Real-time scanning was performed of the abdominal and retroperitoneal organs, with image documentation. COMPARISON: None. FINDINGS: Liver: Liver is mildly enlarged in size 20.3 cm craniocaudad, and homogeneous in echotexture, diffusely hyperechoic consistent with fatty infiltration. Gallbladder: Appears normal Biliary ducts: Intrahepatic bile ducts are non-dilated. Extrahepatic bile duct caliber measures 7.2 mm. Normal is 6-7 mm or less in diameter, or 10 mm or less post-cholecystectomy. Pancreas: Visualized portions of the pancreas are sonographically normal. Spleen: Spleen is normal in size and homogeneous in echotexture. Kidneys: Kidneys are normal in size and echotexture. Right kidney measures 11.0 cm long; left kidney measures 12.6 cm long. No hydronephrosis or nephrolithiasis. No solid masses. Aorta: Visualized aorta is normal in caliber at less than 3 cm but the lower two thirds of the aorta could not be seen due to bowel gas. Iliacs: Not seen due to bowel gas IVC: Intrahepatic inferior vena cava is patent. Miscellaneous: No free abdominal fluid. IMPRESSION: Mildly enlarged hyperechoic liver echotexture, consistent with fatty infiltration. No biliary obstruction found. Significant portions of the retroperitoneum were poorly seen due to overlying bowel gas. Dictated by: Edis Breaux M.D. on 04/29/2019 at 9:54 Approved by: Edis Breaux M.D. on 04/29/2019 at 10:02
[2019-04-29] MEDS: ALBUTEROL/IPRATROPIUM 3 ML AMPUL INH (17:31)
[2019-04-29] MEDS: PROPOFOL 1,000 MG/100 ML VIAL 19.236 MG IV ×2 (17:38→22:21)
[2019-04-29 17:41] LABS: PCO2 ABG 33.4 mmHg (35-45); pH ABG 7.41 (7.35-7.45)
[2019-04-29 17:42] LABS: HCO3 ABG 21 mmol/L (22-26); Oxygen Saturation ABG 100 % (95-100); PO2 ABG 258 mmHg (80-100); TCO2 ABG 22 mmol/L (21-31)
[2019-04-29 17:43] LABS: Fractionated Inspired Oxygen 90
[2019-04-29 19:12] LABS: Alanine Aminotransferase 100 IU/L (21-72); Albumin 2.6 g/dL (3.5-5.0); Alkaline Phosphatase 45 U/L (38-126); Aspartate Aminotransferase 114 IU/L (17-59); Bilirubin Total 0.4 mg/dL (0.2-1.3); Blood Urea Nitrogen 9 mg/dL (9-20); Carbon Dioxide 24 mmol/L (22-32); Chloride 107 mmol/L (98-107); Estimated Glomerular Filt Rate > 60.0 mL/min (>60); Globulin 2.6 g/dL (1.7-4.1); Glucose 107 mg/dL (70-100); HEMOLYSIS < 15 (0-50); Potassium 3.3 mmol/L (3.4-5.1); Sodium 136 mmol/L (137-145); Total Protein 5.2 g/dL (6.3-8.2)
[2019-04-29 19:13] LABS: Calcium 6.9 mg/dL (8.4-10.2)
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
[2019-04-29] MEDS: BACITRACIN 28 GM OINT 1 APPLIC TOP (20:56)
[2019-04-30] VITALS (29 sets, daily range): BP systolic 99–149; BP diastolic 52–96; PULSE 58–89; RESP 16–34; TEMP 36.6–37.3; O2SAT 95–100; BMI 37.0
[2019-04-30] MEDS: DEXTROSE 5%-0.45NS W/KCL 40MEQ 1,000 ML 150 MEQ IV ×2 (00:22→08:17)
[2019-04-30] MEDS: MORPHINE 2 MG/ML INJ IV ×3 (00:25→08:16)
[2019-04-30] MEDS: LORazepam 2 MG/ML INJ IV ×8 (01:02→22:28)
[2019-04-30] MEDS: AMPICILLIN/SULBACTAM 3 GM 3 GM in SODIUM CHLORIDE 0.9% 100 ML IV ×4 (01:54→19:26)
[2019-04-30] MEDS: PROPOFOL 1,000 MG/100 ML VIAL 24.732 MG IV (01:55)
[2019-04-30] MEDS: PROPOFOL 1,000 MG/100 ML VIAL 21.984 MG IV ×3 (05:41→22:28)
--- NOTE | 2019-04-30 05:59 | RT ---
0520 PT WAKING AND THRASHING IN BED. ETTUBE SECURE AND HANDS RESTRAINED. SPO2 78%. FIO2 INCREASED TO 100% AND PEEP INCRTEASED TO +10. BBS COARSE. 0520 SPO2 98%
--- NOTE | 2019-04-30 06:27 | PC.NURSE ---
Patient remains on ventilator, FIO2 initially at 60%, titrated to 35%, then at 0530 increased to 100% r/t sudden severe agitation, RT at bedside attempted to obtain ABG, patient required increased sedation at that time, propofol gtt up to 60mcg/min temporarily then down to 50mcg/min. Total 6mg IV Ativan and 4mg IV morphine given overnight. RT also increased PEEP to 10, TV 400, RR 18, patient overrides up to 26, breath sounds coarse, copious oral secretions. BP stable, see vital trends. Incontinent small loose stool.
[2019-04-30 07:12] LABS: Add Manual Diff / Slide Review NO; Basophils Absolute Auto 0 /uL (0-100); Basophils Percent Auto 0.3 % (0-2); Eosinophils Absolute Auto 200 /uL (0-450); Hematocrit 23.4 % (41-53); Hemoglobin 8.4 g/dL (13.5-17.5); Lymphocytes Absolute Auto 1100 /uL (1100-4500); Lymphocytes Percent Auto 13.9 % (25-40); Mean Corpuscular HGB Conc 35.9 % (30-36); Mean Corpuscular Hemoglobin 32.2 PG (26-34); Mean Corpuscular Volume 89.5 fL (80-100); Monocytes Absolute Auto 400 /uL (0-900); Monocytes Percent Auto 5.4 % (3-14); Neutrophils Absolute Auto 6400 /uL (1500-7000); Neutrophils Percent Auto 78.4 % (50-75); Platelet Count 134 X10^3/uL (150-400); Red Blood Cell Count 2.61 X10^6/uL (4.5-5.9); Red Cell Distribution Width 13.8 % (11.6-14.8); White Blood Cell Count 8.1 X10^3/uL (4.5-11.0)
[2019-04-30 07:21] LABS: Magnesium 1.7 mg/dL (1.6-2.3)
[2019-04-30 07:24] LABS: Alanine Aminotransferase 72 IU/L (21-72); Albumin 2.5 g/dL (3.5-5.0); Albumin Globulin Ratio 0.9 (1.0-2.8); Alkaline Phosphatase 40 U/L (38-126); Aspartate Aminotransferase 42 IU/L (17-59); BUN Creatinine Ratio 8.9 (6-22); Bilirubin Total 0.4 mg/dL (0.2-1.3); Blood Urea Nitrogen 8 mg/dL (9-20); Calcium 6.5 mg/dL (8.4-10.2); Carbon Dioxide 24 mmol/L (22-32); Chloride 108 mmol/L (98-107); Estimated Glomerular Filt Rate > 60.0 mL/min (>60); Globulin 2.7 g/dL (1.7-4.1); Glucose 105 mg/dL (70-100); HEMOLYSIS < 15 (0-50); Potassium 3.4 mmol/L (3.4-5.1); Sodium 136 mmol/L (137-145); Total Protein 5.2 g/dL (6.3-8.2)
[2019-04-30] MEDS: PANTOPRAZOLE 40 MG VIAL IV (08:16)
[2019-04-30] MEDS: ENOXAPARIN 40 MG/0.4 ML SYRINGE SUBCUT (08:17)
[2019-04-30] MEDS: BACITRACIN 28 GM OINT 1 APPLIC TOP ×2 (08:18→19:26)
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
[2019-04-30] MEDS: PROPOFOL 1,000 MG/100 ML VIAL 32.976 MG IV (09:08)
--- NOTE | 2019-04-30 09:26 | RT ---
FIO2 DECREASED TO 40% POST ABG RESULTS
[2019-04-30 09:30] LABS: Fractionated Inspired Oxygen 50; HCO3 ABG 20 mmol/L (22-26); Oxygen Saturation ABG 99 % (95-100); PCO2 ABG 33.6 mmHg (35-45); PO2 ABG 122 mmHg (80-100); TCO2 ABG 21 mmol/L (21-31); pH ABG 7.38 (7.35-7.45)
--- NOTE | 2019-04-30 10:45 | DIET.PN ---
Dietary Progress Note Assessment: 58y M referred to nutrition for ventilator +NPO status EERs while vented: 9899-3752 kcal @ 14-18cal/kg (obese c vent) 100g pro @ 1.5g/kg (obese c vent) 2300 ml fluid @ 35 ml/kg note: propofol provides 1.1kcal/mL and needs to be figured in to EERs. Recc OG EN continuous Glucerna 1.2 for lower CHO to reduce respiratory quotient @52cc/h c added protein modular (beneprotein) q4 -mix 1 scoop c 100cc water syringed into OG. 120cc free water flushes q6. Begin @ 20cc/h, inceasing by 10cc q4hr until goal rate is reached. provides 1500kcal (100%), 100g PRO (100%), and 2180cc free water (95%). Monitoring/Evaluations: GRV q4h for tolerance
--- NOTE | 2019-04-30 11:19 | PC.NURSE ---
Addendum entered by Sarah Stephens R.N. 04/30/19 14:32: ABG/CBC with Diff/CMP ordered by Dr Kelly- changed daily times to 0500 per verbal order of Dr Kelly. Multiple orders edited and deleted. Addendum entered by Sarah Stephens R.N. 04/30/19 14:00: Pt 100% on PRVC. LSCTA. HOB 30, repositioned Q2hrs, suctioning ET tube and mouth as needed- thick sputum noted/blood tinged. Current vent settings: 50% 10 16 500 57 SB 108/58 Right Brachial DL PICC with D5 1/2 NS c 40mEq Kcl @ 100cc/hr. Left Brachial PIV saline locked.Positive pulses to all extremities. All warm. +CSM. All extremities elevated on piillows to decrease swelling. 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 Pupils 3mm and reactive now! brisk. Propofol at 40mcg/kg/min. Agitated on sedation vacation. Have not needed IV Ativan in addition to propofol. Addendum entered by Sarah Stephens R.N. 04/30/19 11:33: Seadtion vacation at 11:19- pt will wiggle toes on command, will not squeeze hands. Unable to open eyes to voice or command. Pt agitated- thrashing head from side to side and pulling on restraint. Titrated prop gtt back to 4omcg. Maintaining restraints for ETT protection. VS 71 BP 121/69, sats 100% Original Note: Pt bathed, rotated, mouth care given, suctioned, starting sedation holiday at 11:19. Will assess and notify Dr. Kelly.
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
[2019-04-30] MEDS: PROPOFOL 1,000 MG/100 ML VIAL 16.488 MG IV (17:52)
[2019-04-30 18:19] LABS: Procalcitonin 0.94 ng/mL (<0.5)
[2019-04-30] MEDS: DEXTROSE 5%-0.45NS W/KCL 40MEQ 1,000 ML 100 MEQ IV (19:09)
--- NOTE | 2019-04-30 23:08 | PC.NURSE ---
Shift Note - Patient remains sedated on propofol gtt for mechanical ventilation. Becomes agitated, moving all extremities and shaking head when coughing or being moved for care. Propofol gtt titrated per protocol and ativan given per CIWA scores. Resting peacefully in bed again at this time.
[2019-05-01] VITALS (36 sets, daily range): BP systolic 97–155; BP diastolic 53–89; PULSE 52–83; RESP 16–24; TEMP 36.4–37.6; O2SAT 87–100
[2019-05-01] MEDS: MORPHINE 2 MG/ML INJ IV ×3 (01:25→19:14)
[2019-05-01] MEDS: AMPICILLIN/SULBACTAM 3 GM 3 GM in SODIUM CHLORIDE 0.9% 100 ML IV ×4 (02:06→19:15)
[2019-05-01] MEDS: PROPOFOL 1,000 MG/100 ML VIAL 27.48 MG IV ×2 (02:14→20:40)
[2019-05-01 05:16] LABS: Add Manual Diff / Slide Review NO; Basophils Absolute Auto 0 /uL (0-100); Basophils Percent Auto 0.7 % (0-2); Eosinophils Absolute Auto 200 /uL (0-450); Eosinophils Percent Auto 3.3 % (2-4); Hematocrit 22.7 % (41-53); Hemoglobin 7.8 g/dL (13.5-17.5); Lymphocytes Absolute Auto 1400 /uL (1100-4500); Lymphocytes Percent Auto 22.5 % (25-40); Mean Corpuscular HGB Conc 34.6 % (30-36); Mean Corpuscular Hemoglobin 31.4 PG (26-34); Mean Corpuscular Volume 90.9 fL (80-100); Monocytes Absolute Auto 500 /uL (0-900); Monocytes Percent Auto 7.2 % (3-14); Neutrophils Absolute Auto 4200 /uL (1500-7000); Neutrophils Percent Auto 66.3 % (50-75); Platelet Count 136 X10^3/uL (150-400); Red Blood Cell Count 2.49 X10^6/uL (4.5-5.9); Red Cell Distribution Width 13.8 % (11.6-14.8); White Blood Cell Count 6.3 X10^3/uL (4.5-11.0)
[2019-05-01 05:23] LABS: Alanine Aminotransferase 59 IU/L (21-72); Albumin 2.6 g/dL (3.5-5.0); Albumin Globulin Ratio 0.9 (1.0-2.8); Alkaline Phosphatase 37 U/L (38-126); Aspartate Aminotransferase 32 IU/L (17-59); BUN Creatinine Ratio 7.8 (6-22); Bilirubin Total 0.5 mg/dL (0.2-1.3); Blood Urea Nitrogen 7 mg/dL (9-20); Calcium 6.6 mg/dL (8.4-10.2); Carbon Dioxide 23 mmol/L (22-32); Chloride 110 mmol/L (98-107); Estimated Glomerular Filt Rate > 60.0 mL/min (>60); Globulin 2.8 g/dL (1.7-4.1); Glucose 100 mg/dL (70-100); HEMOLYSIS 27 (0-50); Potassium 3.6 mmol/L (3.4-5.1); Sodium 136 mmol/L (137-145); Total Protein 5.4 g/dL (6.3-8.2)
--- NOTE | 2019-05-01 06:00 | DI.RAD.S_ITS ---
PROCEDURE: XR CHEST 1V INDICATIONS: INTUBATED TECHNIQUE: One view of the chest was acquired. COMPARISON: [facility], CR, XR CHEST 1V, 04/29/2019, 14:20. FINDINGS: Surgical changes and devices: ET tube projects 4 cm superior to the dorcas. NG tube projects across GE junction with side-port in the proximal stomach. Lungs and pleura: Patchy opacities in the lungs bilaterally which could represent multilobar pneumonia or pulmonary edema. Focal consolidation noted in the mesial aspect of the left lung base which has developed in the interval since prior exam. No pleural effusions or pneumothorax. Mediastinum: Mediastinal contours appear normal. Heart size is normal. Bones and chest wall: No suspicious bony lesions. Overlying soft tissues appear unremarkable. IMPRESSION: Interval development of consolidation in the left lung base which could represent atelectasis, aspiration or pneumonia. Exam otherwise stable compared to 04/29/2019. Dictated by: April Cuevas MD, PhD on 05/01/2019 at 8:23 Approved by: April Cuevas MD, PhD on 05/01/2019 at 8:24
[2019-05-01] MEDS: PROPOFOL 1,000 MG/100 ML VIAL 19.236 MG IV (06:47)
[2019-05-01] MEDS: DEXTROSE 5%-0.45NS W/KCL 40MEQ 1,000 ML 100 MEQ IV (06:48)
[2019-05-01] MEDS: LORazepam 2 MG/ML INJ IV ×5 (07:17→22:02)
--- NOTE | 2019-05-01 08:01 | PC.NURSE ---
Addendum entered by Sarah Stephens R.N. 05/01/19 14:38: RT at bedside. Pt working harder to breathe, RR high 30's. Agitated, positive response to verbal calming and increase of Propofol gtt to 40mcg/kg/min.Verbally reoriented, unable to follow command, opens eyes but makes no contact. VS: 67, 98%, 143/92 (105), ETCO2 30, RR 24 now. Repositioned. Suctioned via ETT and orally. Addendum entered by Sarah Stephens R.N. 05/01/19 14:07: Pt repositioned. IV tubing changed. IV Abx infusing. Pt agitated, biting ETT. Increased propofol gtt from 20 to 30mcg/kg/min. Given 2mg IV Ativan per CIWA scale. Suctioned orally and via ETT- moderate amount of thin clear secretions. TF continue at 10cc/hr. One bolus of free fluid 300mL given. Residual check to be in two hours. LGT 99.2. Need new restraint order from . Addendum entered by Sarah Stephens R.N. 05/01/19 11:59: Pt turned and repositioned post CPAP trial. Comfortable HR 55SB Sats 100% BP 134/87 MAP 107. IVF saline locked/dc'd. Tube Feeds started at 10mL/hr with 1200mL free fluid over 24 hr period --- 300mL Q6H. Addendum entered by Sarah Stephens R.N. 05/01/19 11:41: CPAP trial started at 11:10. Propofol off. Dr kelly at bedside. Pt maintaining TV 400-500. 11:40- RT and nursing completed CPAP trial- pt ETCO increased from 28-36. Desatting to 88%. RR 35. Pt unable to follow commands. Opens eyes and rolls head back and forth. Addendum entered by Sarah Stephens R.N. 05/01/19 11:09: Pt turned and bathed. Positional pt desatted to 74%. Recovered once supine. Addendum entered by Sarah Stephens R.N. 05/01/19 10:41: Prop gtt decreased to 40mcg/kg/min. Beginning wean fro sedation holiday. RT at bedside- nursing staff and RT goal of CPAP trial at noon. HR 51 BP 112/67 Addendum entered by Sarah Stephens R.N. 05/01/19 10:19: Dr kelly aware HR is resting at 53. Given full set of vitals. Addendum entered by Sarah Stephens R.N. 05/01/19 09:48: Pt with HR 53-57 sustained for over ten minutes. Last BP 113/65. +[address] Kelly. Unable to reach. Will cont to monitor. Addendum entered by Sarah Stephens R.N. 05/01/19 08:54: Dr Kelly at bedside. Plan for tube feeds, replacement of Ca and attempt sedation vacation again midday to eval neuro status and possible extubation. Addendum entered by Sarah Stephens R.N. 05/01/19 08:22: ABG Complete. pH 7.370 CO2 35.1 HCO3 20.3 Original Note: Report received and assumed care of patient from cook night RN. At 0705- pt bucking vent, coughing, severely agitated and thrashing head in bed. Per RN, sedation vacation began at 0635. Pt has failed this sedation vacation with Propofol at 35mcg/kg/min. Increased Prop gtt to 60mcg, gave 2mg IV Morphine and 2mg IV Ativan. Pt sedated and appears comfortable immediately. Current vent settings- PRVC 35 8 16 500. 7.0 22 @ teeth. Sats increased from 84% to 98% post med administration. ETCO2 unavailable at change of shift. 07:30 ETCO2 28. LSCTA, decreased to bilateral bases. Suctioned patient via ETT and orally. Thin clear secretions- improved from shift yesterday. Pt has not had am ABG. RT asked to draw now. HR 60SR, BP 108/57, D5 1/2NS c 40mEq Kcl at 100ml/hr via Right Brach DL PICC-dressing intact, changed yesterday. Left Brach PIV flushed- patent. Pt continues on IV Abx and is currently afebrile at 98.9. Added Mag to am labs now. +2 pulses, +2 pitting edema to all extremities. Elevated on pillows. Abd soft, appears non tender, large and round. +hypo active BS, 1 BM overnight per report. Urine output >1cc/kg/hr since change of shift. Light yellow urine noted. Plan for day: Will continue with IV Ativan for agitation to see pt through possible contuned ETOH detox. Manage vent, maintaining sats and ETCO2 appropriately. Vigilant oral care and pulmonary toiletry. Rotate Q2hr and manage restraints per protocol.
[2019-05-01] MEDS: ENOXAPARIN 40 MG/0.4 ML SYRINGE SUBCUT (08:42)
[2019-05-01] MEDS: PANTOPRAZOLE 40 MG VIAL IV (08:43)
[2019-05-01] MEDS: BACITRACIN 28 GM OINT 1 APPLIC TOP ×2 (08:44→20:41)
[2019-05-01 08:56] LABS: HCO3 ABG 20 mmol/L (22-26); PCO2 ABG 35.1 mmHg (35-45); PO2 ABG 93 mmHg (80-100); TCO2 ABG 21 mmol/L (21-31); pH ABG 7.37 (7.35-7.45)
[2019-05-01 08:57] LABS: Oxygen Saturation ABG 97 % (95-100)
[2019-05-01 08:58] LABS: Fractionated Inspired Oxygen 0.35
[2019-05-01] MEDS: PROPOFOL 1,000 MG/100 ML VIAL 32.976 MG IV (09:19)
[2019-05-01 10:22] LABS: Magnesium 1.6 mg/dL (1.6-2.3)
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
[2019-05-01 11:48] LABS: HEMOLYSIS 26 (0-50); Iron 24 ug/dL (49-181)
[2019-05-01 11:58] LABS: Percent Iron Saturation 8 % (20-50); Total Iron Binding Capacity 298 ug/dL (261-462); Transferrin 158 mg/dL (206-381)
[2019-05-01] MEDS: PROPOFOL 1,000 MG/100 ML VIAL 10.992 MG IV (13:37)
[2019-05-01] MEDS: PROPOFOL 1,000 MG/100 ML VIAL 24.732 MG IV (17:01)
[2019-05-01] MEDS: CALCIUM CARBONATE 500 MG TAB 1000 MG PO (22:00)
[2019-05-01] MEDS: MAGNESIUM SULFATE 2 GM/50 ML PIGGYBACK IV (22:43)
[2019-05-02] VITALS (40 sets, daily range): BP systolic 104–183; BP diastolic 65–99; PULSE 58–77; RESP 16–31; TEMP 37.4–38.2; O2SAT 93–100; BMI 37.7
[2019-05-02] MEDS: PROPOFOL 1,000 MG/100 ML VIAL 27.48 MG IV ×3 (00:08→06:51)
[2019-05-02] MEDS: AMPICILLIN/SULBACTAM 3 GM 3 GM in SODIUM CHLORIDE 0.9% 100 ML IV ×4 (01:46→21:08)
[2019-05-02 05:00] LABS: Add Manual Diff / Slide Review NO; Basophils Absolute Auto 0 /uL (0-100); Basophils Percent Auto 0.5 % (0-2); Eosinophils Absolute Auto 200 /uL (0-450); Eosinophils Percent Auto 2.8 % (2-4); Hemoglobin 8.6 g/dL (13.5-17.5); Lymphocytes Absolute Auto 1300 /uL (1100-4500); Lymphocytes Percent Auto 17.4 % (25-40); Mean Corpuscular HGB Conc 35.4 % (30-36); Mean Corpuscular Hemoglobin 31.7 PG (26-34); Mean Corpuscular Volume 89.5 fL (80-100); Monocytes Absolute Auto 600 /uL (0-900); Monocytes Percent Auto 7.5 % (3-14); Neutrophils Absolute Auto 5500 /uL (1500-7000); Neutrophils Percent Auto 71.8 % (50-75); Platelet Count 133 X10^3/uL (150-400); Red Blood Cell Count 2.71 X10^6/uL (4.5-5.9); Red Cell Distribution Width 13.9 % (11.6-14.8); White Blood Cell Count 7.7 X10^3/uL (4.5-11.0)
--- NOTE | 2019-05-02 05:08 | PC.NURSE ---
Scleral edema has increased since beginning of shift, hands 2+ and feet 1+, and facial edema is present. Incont of liqued stool, scrotal edema also present. Temp 100.5 oral. Has rales in right base sats maintaining in mid to hi 90s. Turned q 2 hours with hands and feet elevated..
[2019-05-02 05:10] LABS: Magnesium 2.2 mg/dL (1.6-2.3)
[2019-05-02 05:11] LABS: Alanine Aminotransferase 50 IU/L (21-72); Albumin 2.7 g/dL (3.5-5.0); Alkaline Phosphatase 46 U/L (38-126); Aspartate Aminotransferase 24 IU/L (17-59); BUN Creatinine Ratio 8.8 (6-22); Bilirubin Total 0.5 mg/dL (0.2-1.3); Blood Urea Nitrogen 7 mg/dL (9-20); Calcium 7.5 mg/dL (8.4-10.2); Carbon Dioxide 23 mmol/L (22-32); Chloride 110 mmol/L (98-107); Estimated Glomerular Filt Rate > 60.0 mL/min (>60); Globulin 2.8 g/dL (1.7-4.1); Glucose 103 mg/dL (70-100); HEMOLYSIS 18 (0-50); Potassium 3.4 mmol/L (3.4-5.1); Sodium 139 mmol/L (137-145); Total Protein 5.5 g/dL (6.3-8.2)
[2019-05-02 05:18] LABS: Hematocrit 24.3 % (41-53)
--- NOTE | 2019-05-02 06:00 | DI.RAD.S_ITS ---
PROCEDURE: XR CHEST 1V INDICATIONS: intubated TECHNIQUE: One view of the chest was acquired. COMPARISON: [facility], CR, XR CHEST 1V, 05/01/2019, 5:42. FINDINGS: Surgical changes and devices: The endotracheal tube is 6.1 cm above the dorcas. An NG tube is projected over the gastric fundus. The distal aspect is not visualized. Right PICC is unchanged. Lungs and pleura: Lung volumes are low. Left pleural effusion cannot be excluded. No acute air space opacities. Mediastinum: Mediastinal contours appear normal. Heart size is enlarged. Bones and chest wall: No suspicious bony lesions. Overlying soft tissues appear unremarkable. IMPRESSION: Cardiomegaly. Low lung volumes. Left pleural effusion cannot be excluded given limited visualization of the left lung base. Dictated by: Lilli Higgins M.D. on 05/02/2019 at 9:50 Approved by: Lilli Higgins M.D. on 05/02/2019 at 9:51
[2019-05-02 06:16] LABS: Folate 13.6 ng/mL (2.76-20.0)
[2019-05-02 06:19] LABS: PCO2 ABG 34.8 mmHg (35-45); PO2 ABG 78 mmHg (80-100); pH ABG 7.37 (7.35-7.45)
[2019-05-02 06:20] LABS: Fractionated Inspired Oxygen 30; Oxygen Saturation ABG 95 % (95-100); TCO2 ABG 21 mmol/L (21-31)
[2019-05-02] MEDS: LORazepam 2 MG/ML INJ IV (07:30)
[2019-05-02] MEDS: ENOXAPARIN 40 MG/0.4 ML SYRINGE SUBCUT (08:55)
[2019-05-02] MEDS: PANTOPRAZOLE 40 MG VIAL IV (08:55)
[2019-05-02] MEDS: MORPHINE 2 MG/ML INJ IV ×2 (09:02→21:27)
[2019-05-02] MEDS: BACITRACIN 28 GM OINT 1 APPLIC TOP ×2 (09:02→21:23)
[2019-05-02] MEDS: FOLIC ACID 1 MG TABLET PO (09:08)
[2019-05-02] MEDS: THIAMINE 100 MG TABLET PO (09:08)
[2019-05-02] MEDS: chlordiazePOXIDE 25 MG CAPSULE 100 MG PO ×2 (10:08→21:27)
[2019-05-02] MEDS: FUROSEMIDE 40 MG/4 ML VIAL IV (10:09)
[2019-05-02] MEDS: PROPOFOL 1,000 MG/100 ML VIAL 16.488 MG IV ×3 (11:15→21:48)
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
--- NOTE | 2019-05-02 13:25 | PC.NURSE ---
Addendum entered by Bertha Byers R.N. 05/02/19 15:20: pt lasted 1 hour on cpap trial Original Note: pt received 40 mg iv lasix for increased edema - brisk uop following this - suctioned both orally and ett for thick creamy whititsh colored secretions- turned q 2 h and skin intact, bacitracin to above right eye laceration-large incontinent bowel movement and tube feedings up to goal rate with minimal residual, turned q 2h and soft limb restraints remain- able to lighten sedation during sedation vacation and cpap trial taking place at present with RT in room
[2019-05-02 14:16] LABS: Fractionated Inspired Oxygen 30; HCO3 ABG 23 mmol/L (22-26); Oxygen Saturation ABG 95 % (95-100); PCO2 ABG 30.7 mmHg (35-45); PO2 ABG 68 mmHg (80-100); TCO2 ABG 24 mmol/L (21-31); pH ABG 7.48 (7.35-7.45)
[2019-05-02] MEDS: DEXTROSE 5% WATER 500 ML 21 ML IV (14:42)
[2019-05-02] MEDS: LORazepam 2 MG/ML INJ 1 MG IV (15:40)
[2019-05-02] MEDS: HYDRALAZINE 20 MG/ML VIAL 10 MG IV (21:05)
--- NOTE | 2019-05-02 22:50 | PC.NURSE ---
rossy note pt intermittently agitated. Medicated with Ativan and morphine and increased propofol from 30 to 50 mcg/kg/min. Pt having frequent incontinent stools. Copious oral secretions. Small amount of oozing blood from right forehead wound.
[2019-05-03] VITALS (35 sets, daily range): BP systolic 112–183; BP diastolic 65–94; PULSE 51–86; RESP 14–30; TEMP 36.2–37.6; O2SAT 93–100
[2019-05-03] MEDS: PROPOFOL 1,000 MG/100 ML VIAL 24.732 MG IV ×4 (01:42→11:53)
[2019-05-03] MEDS: AMPICILLIN/SULBACTAM 3 GM 3 GM in SODIUM CHLORIDE 0.9% 100 ML IV ×4 (01:46→20:01)
--- NOTE | 2019-05-03 05:06 | PC.NURSE ---
Scleral edema unchanged, facial edema unchanged, hands and feet 2+ now pitting and getting firm. By ankles at bottom of SCDs and bottom of left BP cuff becoming ecchymotic and raw. Bruise/ecchymosis on right side of neck somewhat firm. Continuing to suction oral and ET tube clear secretions every 20-30 min to keep coughing down and airway clear.
[2019-05-03 05:40] LABS: Add Manual Diff / Slide Review NO; Basophils Absolute Auto 0 /uL (0-100); Basophils Percent Auto 0.5 % (0-2); Eosinophils Absolute Auto 200 /uL (0-450); Eosinophils Percent Auto 2.9 % (2-4); Hemoglobin 8.5 g/dL (13.5-17.5); Lymphocytes Absolute Auto 1200 /uL (1100-4500); Lymphocytes Percent Auto 16.8 % (25-40); Mean Corpuscular HGB Conc 34.7 % (30-36); Mean Corpuscular Hemoglobin 31.5 PG (26-34); Mean Corpuscular Volume 90.7 fL (80-100); Monocytes Absolute Auto 700 /uL (0-900); Monocytes Percent Auto 9.8 % (3-14); Neutrophils Absolute Auto 5100 /uL (1500-7000); Platelet Count 180 X10^3/uL (150-400); Red Cell Distribution Width 14.1 % (11.6-14.8); White Blood Cell Count 7.2 X10^3/uL (4.5-11.0)
[2019-05-03 05:41] LABS: Alanine Aminotransferase 40 IU/L (21-72); Albumin 2.8 g/dL (3.5-5.0); Alkaline Phosphatase 50 U/L (38-126); Aspartate Aminotransferase 17 IU/L (17-59); BUN Creatinine Ratio 7.8 (6-22); Bilirubin Total 0.4 mg/dL (0.2-1.3); Blood Urea Nitrogen 7 mg/dL (9-20); Calcium 8.3 mg/dL (8.4-10.2); Carbon Dioxide 27 mmol/L (22-32); Chloride 106 mmol/L (98-107); Estimated Glomerular Filt Rate > 60.0 mL/min (>60); Globulin 2.7 g/dL (1.7-4.1); Glucose 107 mg/dL (70-100); HEMOLYSIS < 15 (0-50); Sodium 140 mmol/L (137-145); Total Protein 5.5 g/dL (6.3-8.2)
[2019-05-03 05:42] LABS: Magnesium 1.9 mg/dL (1.6-2.3)
[2019-05-03 05:45] LABS: Hematocrit 24.5 % (41-53)
[2019-05-03 05:55] LABS: Procalcitonin 0.25 ng/mL (<0.5)
--- NOTE | 2019-05-03 06:00 | DI.RAD.S_ITS ---
PROCEDURE: XR CHEST 1V INDICATIONS: intubated TECHNIQUE: One view of the chest was acquired. COMPARISON: [facility], CR, XR CHEST 1V, 05/02/2019, 6:24. FINDINGS: Surgical changes and devices: An endotracheal tube is positioned approximately 4 cm above the level of the dorcas. Right-sided PICC line catheter is identified with the tip overlying the low superior vena cava. A nasogastric tube is seen extending below the diaphragm. Lungs and pleura: Mild perihilar consolidation of the lungs is more prominent on the right hilum and within the left infrahilar region. No large effusion or definite pneumothorax is appreciated. Mediastinum: Mediastinal contours appear normal. Heart size is enlarged. Bones and chest wall: No suspicious bony lesions. Overlying soft tissues appear unremarkable. IMPRESSION: 1. Cardiomegaly. 2. Developing perihilar consolidation may be related to pulmonary edema, atelectasis, or developing pneumonia. Please correlate clinically. 3. Tubes and lines, as described. Dictated by: Kyle Rosario M.D. on 05/03/2019 at 7:25 Approved by: Kyle Rosario M.D. on 05/03/2019 at 7:28
[2019-05-03] MEDS: POTASSIUM CHLORIDE 60 MEQ in SODIUM CHLORIDE 0.9% 500 ML 88.333 ML IV (06:24)
[2019-05-03 07:20] LABS: HCO3 ABG 25 mmol/L (22-26); PCO2 ABG 36.5 mmHg (35-45); PO2 ABG 71 mmHg (80-100); TCO2 ABG 26 mmol/L (21-31); pH ABG 7.44 (7.35-7.45)
[2019-05-03 07:21] LABS: Oxygen Saturation ABG 95 % (95-100)
[2019-05-03] MEDS: BACITRACIN 28 GM OINT 1 APPLIC TOP ×2 (08:47→20:01)
[2019-05-03] MEDS: FOLIC ACID 1 MG TABLET PO (08:51)
[2019-05-03] MEDS: ENOXAPARIN 40 MG/0.4 ML SYRINGE SUBCUT (08:51)
[2019-05-03] MEDS: THIAMINE 100 MG TABLET PO (08:51)
[2019-05-03] MEDS: PANTOPRAZOLE 40 MG VIAL IV (08:51)
[2019-05-03] MEDS: chlordiazePOXIDE 25 MG CAPSULE 100 MG PO ×2 (08:51→20:06)
[2019-05-03] MEDS: MORPHINE 2 MG/ML INJ IV ×3 (08:52→18:40)
--- NOTE | 2019-05-03 09:07 | PM.PN.1 ---
Subjective Subjective Date Patient Seen: 05/03/19 Interval history: The patient is a 59-year-old male well known to me who was intubated following a acute respiratory failure. Patient coded 3 days ago. Since then he remains on the ventilator and it has been difficult to wean and extubate. He received Lasix yesterday with excellent response. He is calm and sedated today. He does arouse occasionally. Blood pressure heart rate have been well controlled. Patient is somewhat anemic today. He is currently being treated for an aspiration pneumonia in addition to alcohol withdrawal syndrome. Exam Vital Signs (past 8 hours): - 05/03/19 01:11 05/03/19 02:01 05/03/19 03:01 Temperature 97.2 F L Pulse Rate 69 72 65 Respiratory Rate 18 18 16 Blood Pressure 156/80 H 163/90 H 136/74 Pulse Oximetry 99 98 97 05/03/19 04:12 05/03/19 04:22 05/03/19 05:05 Temperature 98.7 F Pulse Rate 64 66 Respiratory Rate 16 19 Blood Pressure 156/84 H 159/81 H Pulse Oximetry 98 97 05/03/19 06:25 05/03/19 07:00 05/03/19 08:00 Temperature 99.4 F Pulse Rate 70 69 68 Respiratory Rate 22 17 16 Blood Pressure 133/67 141/83 H 161/83 H Pulse Oximetry 96 95 99 Fraction of Inspired Oxygen 30 Oxygen Delivery Method Mechanical Ventilation Oxygen Flow Rate 30 Narrative Exam Narrative: Sedated male on the ventilator HEENT: Bruising, ecchymoses over the right eye Lungs: Clear to auscultation Cardiac exam: Regular rate and rhythm normal S1-S2 Abdomen: Soft nontender nondistended Extremities: 1 to 2+ pitting edema in the hands and lower extremity Patient is intubated Objective Labs Result Diagrams: 05/03/19 04:43 05/03/19 04:43 Labs: Laboratory Results - last 24 hr 05/02/19 05/03/19 05/03/19 14:00 04:43 04:43 WBC 7.2 RBC 2.70 L Hgb 8.5 L Hct 24.5 L MCV 90.7 MCH 31.5 MCHC 34.7 RDW 14.1 Plt Count 180 Neut % (Auto) 70.0 Lymph % (Auto) 16.8 L [place] % (Auto) 9.8 Eos % (Auto) 2.9 Baso % (Auto) 0.5 Neut # (Auto) 5100 Lymph # (Auto) 1200 [place] # (Auto) 700 Eos # (Auto) 200 Baso # (Auto) 0 ABG pH 7.48 H ABG pCO2 30.7 L ABG pO2 68 L ABG HCO3 23 ABG Total CO2 24 ABG O2 Saturation 95 ABG Base Excess 0.0 FiO2 30 Sodium 140 Potassium 3.0 L Chloride 106 Carbon Dioxide 27 BUN 7 L Creatinine 0.90 Estimated GFR > 60.0 BUN/Creatinine Ratio 7.8 Glucose 107 H Calcium 8.3 L Magnesium Total Bilirubin 0.4 AST 17 ALT 40 Alkaline Phosphatase 50 Total Protein 5.5 L Albumin 2.8 L Globulin 2.7 Albumin/Globulin Ratio 1.0 Procalcitonin 05/03/19 05/03/19 05/03/19 04:43 04:43 06:19 WBC RBC Hgb Hct MCV MCH MCHC RDW Plt Count Neut % (Auto) Lymph % (Auto) [place] % (Auto) Eos % (Auto) Baso % (Auto) Neut # (Auto) Lymph # (Auto) [place] # (Auto) Eos # (Auto) Baso # (Auto) ABG pH 7.44 ABG pCO2 36.5 ABG pO2 71 L ABG HCO3 25 ABG Total CO2 26 ABG O2 Saturation 95 ABG Base Excess 0.0 FiO2 0.30 Sodium Potassium Chloride Carbon Dioxide BUN Creatinine Estimated GFR BUN/Creatinine Ratio Glucose Calcium Magnesium 1.9 Total Bilirubin AST ALT Alkaline Phosphatase Total Protein Albumin Globulin Albumin/Globulin Ratio Procalcitonin 0.25 Assessment & Plan Assessment & Plan narrative: Acute hypoxic respiratory failure. Patient developed a respiratory arrest in the setting of sedation for alcohol withdrawal syndrome. He currently remains on a propofol gtt and intermittent ativan and morphine boluses. ABG demonstrated adequate current ventilator settings. Continue sedation vacation and PST with the hopes to potentially extubate in next several days. Will completed a sedation vacation today and spontaneous breathing trial with the goal to extubate. If we are unable to extubate the patient today would consider transfer to another facility for pulmonary consultation. 2. Aspiration pneumonia. Chest x-ray confirms a left lower lobe infiltrate. Given the patient's recurrent intubations suspect aspiration. Continue Unasyn to complete 5-7 day treatment course. 3. Delirium tremens, secondary to alcohol abuse and withdrawal. Patient is sedated and we are unable to assess whether he is truly withdrawing. He has intermittently received morphine and Ativan for agitation while on the ventilator. Again the goal is to taper his sedative propofol in particular, with a goal to extubate daily. Restarted librium at 100 mg twice daily with goal to slowly taper and limit sedation with propofol gtt and ativan and morphine boluses. 4. Alcoholic hepatitis, continue to trend his liver function 5. Normocytic anemia, suspect this is partially delusional. Will continue to monitor his CBCs accordingly. No need to transfusion at this time. 6. Hypertension, present on admission. While intubated on propofol the blood pressures been well controlled however previously he required several medications for control. Anticipate resuming his usual home medications once extubated 7. Depression, resume home medications through OG. 8. Anxiety/bipolar 1 disease. 9. Pulmonary edema, will continue Lasix Plan will continue to progress towards extubation today. As the patient has been intubated for 48 hours if we are unable to successfully extubate him over the next 24-48 hours would consider transfer to another facility for ongoing management.
--- NOTE | 2019-05-03 09:10 | DI.ECHO.S_ITS ---
[place] [facility]---------+ [facility] +---------+ : : [address] : : : : [id number] : : : : Phone: [phone] Echocardiogram Report + + :Name: FRANK POLO Study Date: 05/03/2019 Height: 62 in : :[facility] Exam Location: IS Weight: 212 lb : : Gender: Male BSA: 2.0 m2 : :: 1960 Age: 59 yrs BP: 130/73 mmHg: :Reason For Study: Evaluate LV Function : :Ordering Physician: Erick : :Hospitalist Performed By: Salina Page : :Referring: SAPPHIRE JOHNSON : + + Interpretation Summary The left ventricle is normal in size, wall thickness, and systolic function without any focal wall motion abnormalities. The right ventricle is mildly dilated. Pulmonary artery pressures cannot be estimated because of the lack of a measurable TR jet velocity. Trace AI. No hemodynamically significant valvular abnormalities. No prior echo for comparison. Procedure: A two-dimensional transthoracic echocardiogram with color flow and Doppler was performed. The study quality was technically adequate. There is no prior echocardiogram noted for this patient. The patient was in sinus bradycardia with heart rates between 54-60 bpm during the exam. Left Ventricle: The left ventricle is normal in size, wall thickness, and systolic function without any focal wall motion abnormalities. The ejection fraction is estimated to be 60-65%. Diastolic parameters suggest probable normal left ventricular diastolic function and normal filling pressures. Right Ventricle: The right ventricle is mildly dilated. The right ventricular systolic function is normal. Atria: Both atria are moderately dilated. There is no Doppler evidence for an interatrial shunt. Mitral Valve: The mitral valve leaflets appear mildly thickened, but open well. There is trace mitral regurgitation. Aortic Valve: The aortic valve is trileaflet. The aortic valve opens well. There is no aortic valve stenosis. There is trace aortic regurgitation. Tricuspid Valve: The tricuspid valve is normal in structure and function. There is a trace or physiologic amount of tricuspid regurgitation. Pulmonary artery pressures cannot be estimated because of the lack of a measurable TR jet velocity. Pulmonic Valve: The pulmonic valve is not well seen, but is grossly normal. There is mild pulmonic regurgitation. Great Vessels: The aortic root is normal size. The ascending aorta is normal in size. The pulmonary artery is normal size. Inspiratory collapse cannot be assessed because of mechanical ventilation, thus CVP cannot be estimated.. The IVC has a measurement of 2.7 mm. Pericardium/ Pleura There is no pericardial effusion. A left sided pleural effusion can not be ruled out. MMode/2D Measurements & Calculations LVIDd: 4.7 cm Ao root diam: 3.5 cm LVIDs: 3.2 cm asc Aorta Diam: 3.2 cm FS: 33.4 % EPSS: 0.45 cm IVSd: 0.85 cm LVPWd: 0.73 cm LV hinton. diameter/BSA (cm/m^2): 2.4 LV sys. diameter/BSA (cm/m^2): 1.6 LA A2 area: 24.0 cm2 RA long axis: 5.8 cm LA A4 area: 26.4 cm2 RA area: 21.8 cm2 LA length (vol): 6.1 cm RA vol: 69.9 ml LA vol: 88.2 ml RA : 35.7 ml/m2 LA vol index: 45.0 ml/m2 IVC diam: 2.7 cm RVD1 (basal): 4.8 cm RVD2 (mid): 3.7 cm Doppler Measurements & Calculations Ao V2 max: 139.4 cm/sec LVOT Max Madi: 130.5 cm/sec Ao V2 mean: 91.7 cm/sec LV V1 max P.8 mmHg Ao max P.8 mmHg LV V1 VTI: 23.6 cm Ao mean P.8 mmHg sev ratio: 0.93 Ao V2 VTI: 25.4 cm MV E max madi: 95.5 cm/sec TR max madi: 147.8 cm/sec MV A max madi: 70.1 cm/sec TR max P.7 mmHg MV E/A: 1.4 PA V2 max: 73.5 cm/sec Med Peak E' Madi: 9.4 cm/sec PA V2 mean: 49.9 cm/sec E/E' med: 10.2 PA mean P.1 mmHg Lat Peak E' Madi: 12.0 cm/sec PA Accel Time: 0.11 sec E/E' lat: 8.0 E/e' average: 9.1 MV dec time: 0.25 sec MV P1/2t: 72.1 msec MV P1/2t max madi: 95.2 cm/sec MVA(P1/2t): 3.0 cm2 Electronically signed by: Yefri Lo M.D. on Reading Physician:05/03/2019 05:29 PM
[2019-05-03 10:07] LABS: B Type Natriuretic Peptide < 100 (<100)
[2019-05-03] MEDS: FUROSEMIDE 20 MG/2 ML VIAL IV (10:25)
--- NOTE | 2019-05-03 13:55 | DIET.PN ---
Dietary Progress Note Assessment: 58y M 4d on tube feed at goal rate of 52cc/h c minimal residuals, pt having BMs. Pt may benefit from protein modular recc per below (1 scoop benepro c 100cc water syringed into OG four times per day) r/t edema and total pro 5.5 (L), alb 2.8 (L). EERs while vented: 9343-2574 kcal @ 14-18cal/kg (obese c vent) 100g pro @ 1.5g/kg (obese c vent) 2300 ml fluid @ 35 ml/kg note: propofol provides 1.1kcal/mL and needs to be figured in to EERs. Recc OG EN continuous Glucerna 1.2 for lower CHO to reduce respiratory quotient @52cc/h c added protein modular (beneprotein) q4 -mix 1 scoop c 100cc water syringed into OG. 120cc free water flushes q6. provides 1500kcal (100%), 100g PRO (100%), and 2180cc free water (95%). Monitoring/Evaluations: GRV q4h for tolerance
--- NOTE | 2019-05-03 14:03 | PC.NURSE ---
Addendum entered by Mello Lanier R.N. 05/03/19 14:36: 1420- RT at bedside to obtain ABG. Entered room to assist RT with pt positioning. Noted ETT to be significantly out and pt making audbile noises. Elevated HOB and provided oral suctioning. Called to Dr. Kelly and notified that ETT not in appropriate position and that ABG has not yet been obtained. Orders received to extubate. Pt extubated to 100% NRB and was quickly able to titrate to 5L NC. SPO2 96%. Pt is coughing and expectorating large amounts of thick/white sputum. Provided reorientation and educated to use of call light. Bed alarm on and curtain open. Original Note: 1305- Titrated propofol to off and pt awoke able to follow directions but difficulty sustaining this due to anxiety/agitation. Pt is thrashing head from side to side and is difficult to direct. Restarted propofol at 10 mcg/kg/min. Pt able to better tolerate but needs constant redirection/reorientation to participate due to head thrashing. Pt tolerated breathing trial fairly well maintaining SPO2 93-99% with RR 23-29/min. Notified Dr. Kelly at 1400 of pt progress. Order received for ABG and instruction to call with results. Dr. Kelly states may be able to extubate pending ABG results. Updated pt and titrated propofol to off. Called to RT to notify or order for ABG now.
[2019-05-03] MEDS: KETOROLAC 15 MG/ML VIAL IV ×2 (15:39→21:23)
--- NOTE | 2019-05-03 15:44 | CM.DPC ---
DCP Cont: Per MD, pt still intubated and will attempt another sedation vacation today around 1100 towards weaning trial to see if pt can be successfully extubated. Pt to have Echo today and pending results then likely CT needed. If pt cannot be successfully extubated then MD will work on hospital transfer for higher level of care. SW met with pt bedside with RN around 1430 and pt was being trialed and currently not successfully weaned. Pt did not seem to be able to fully follow commands or respond fully to questions. RT working closely to see if pt can continue with weaning trial. Per RN, around 1500 pt ended up almost self extubating and RT working closely with pt and pt still not yet appropriate for bedside assessment. Plan: SW to follow closely tomorrow to determine if pt was able to successfully remain extubated overnight and if medically appropriate for bedside assessment for d/c planning needs. Pt with multiple recent alcohol/suicidal ideation Inpt treatment placements over the past few months. CHRISTINA Nogueira
--- NOTE | 2019-05-03 17:11 | PC.NURSE ---
Addendum entered by Sophia Brunner R.N. 05/03/19 22:12: 2210 -Pt remains restless and agitated. Attempting to get out of bed. Rolling over on to hands and knees. Repositioned, encouraged slow breaths, Cool cloth provided. 91% on RA will not leave O2 in place. With increased agitation, pt unable to always follow cues, PO fluids removed from pt reach. Unable to appropriately use I.S. Bed alarm on. Addendum entered by Sophia Brunner R.N. 05/03/19 21:35: 2130 - Pt restless and agitated. States I am having a panic attack. Do you see all the rats? They are everywhere. C/o pain and refusing to leave O2 in place. Multiple attempts at reassurance and redirections. I am going to ! Ativan given. Fan provided per request. Unable to comprehend call light use. Bed alarm on. Addendum entered by Sophia Brunner R.N. 05/03/19 20:56: 2030 - Pt with increased anxiety and restlessness, rocking back and forth in bed. Librium given as ordered. Pt states I am going to . Reassurance provided. VS check, BP down to 164/93 HR 76 following hydralazine administration. Pt continues to pull off O2, changed from ETCO2 cannula to regular cannula to decrease irritation. Pt c/o of chest pain as well as back pain. Tearful. Hospitalist, Balaji, at bedside and aware of Pt complaints. Ativan given. Monitor. Addendum entered by Sophia Brunner R.N. 05/03/19 18:47: 1845 - Pt requesting rx for pain. Continues to report generalized pain. Restless in bed. While in room pt asks if I see that, pointing to the ceiling. Pt reports seeing cockroaches on the ceiling. CIWA assessment, 10. PO ativan given. Bed alarm on. Addendum entered by Sophia Brunner R.N. 05/03/19 17:31: 1730 -Pt taking sips of water without difficulty. Impulsive. Needs reinforcement to slow down. O2 off, r/t pt repeated removal. 94%. Monitor. Original Note: 1545 - Pt awake, reoriented to place and situation. Pt c/o pain, everywhere. Order obtained for Toradol. O2 96% on 3L, titrated down to 2L. I.S. education. 3 breaths to 500. Needs reinforcement. Repositioned. Inc. of smear of stool. Bed alarm on. 1644 - Pt continues to c/o pain, I need a pill. Restless in bed. Sitting up, c/o back pain. Reports as chronic. Morphine given. Encouraged deep breath. Pt frequently taking O2 cannula off. Nasal congestion. Able to blow nose. Tearful, supportive son at bedside. Bed alarm on.
[2019-05-03] MEDS: LORazepam 1 MG TABLET PO ×2 (18:41→20:43)
[2019-05-03] MEDS: HYDRALAZINE 20 MG/ML VIAL 10 MG IV (20:06)
[2019-05-03] MEDS: LORazepam 2 MG/ML INJ IV ×4 (21:23→23:57)
[2019-05-03] MEDS: SODIUM CHLORIDE 0.9% 250 ML 21 ML IV (22:50)
[2019-05-04] VITALS (23 sets, daily range): BP systolic 155–201; BP diastolic 80–105; PULSE 78–101; RESP 16–39; TEMP 37–37.7; O2SAT 91–97
[2019-05-04] MEDS: HYDRALAZINE 20 MG/ML VIAL 10 MG IV ×2 (00:37→04:32)
[2019-05-04] MEDS: LORazepam 2 MG/ML INJ IV ×3 (01:00→02:23)
[2019-05-04] MEDS: AMPICILLIN/SULBACTAM 3 GM 3 GM in SODIUM CHLORIDE 0.9% 100 ML IV ×3 (01:46→15:01)
--- NOTE | 2019-05-04 02:54 | DI.CT.S_ITS ---
PROCEDURE: CT HEAD/BRAIN WO CON INDICATIONS: AMS, Head Pain, Nausea, post head injury TECHNIQUE: Noncontrast 4.5 mm thick angled axial sections acquired from the foramen magnum to the vertex, with coronal and sagittal reformats. For radiation dose reduction, the following was used: automated exposure control, adjustment of mA and/or kV according to patient size. COMPARISON: [facility], CT, CT HEAD/BRAIN WO CON, 04/26/2019, 14:26. [facility], CT, CT HEAD/BRAIN WO CON, 04/06/2019, 21:19. FINDINGS: Image quality: Suboptimal related to motion artifact. CSF spaces: Basal cisterns are patent. No extra-axial fluid collections. Ventricles are normal in size and shape. Brain: No midline shift. No intracranial masses or hemorrhage. Schmitz-white matter interface is normal. There is an area of encephalomalacia versus focal atrophy involving the anterior margins of the bilateral anterior frontal lobes (left greater than right), unchanged since the prior study. Skull and face: Calvarium and visualized facial bones are intact, without suspicious lesions. Large scalp hematoma overlying the right frontal region is similar to the previous exam. No underlying fractures are evident. However, the bone is not well evaluated within this region related to patient motion. Sinuses: Because of thickening of the right maxillary sinus and the ethmoid air cells is present. There may be bilateral mastoid effusions. IMPRESSION: 1. No acute intracranial hemorrhage. 2. Right scalp hematoma. No underlying fractures. 3. Moderate paranasal sinus disease. 4. Possible mastoid disease. Dictated by: Kyle Rosario M.D. on 05/04/2019 at 7:34 Approved by: Kyle Rosario M.D. on 05/04/2019 at 7:38
[2019-05-04] MEDS: HALOPERIDOL 5 MG/ML VIAL 2 MG IV (03:08)
[2019-05-04] MEDS: MORPHINE 2 MG/ML INJ IV ×3 (03:30→19:00)
[2019-05-04] MEDS: KETOROLAC 15 MG/ML VIAL IV ×4 (04:10→22:10)
--- NOTE | 2019-05-04 04:38 | PC.NURSE ---
Called Tomas SHARP about 0200 due to escalating agitation and inability to control pt and his statement of I'm going to Punch you as we tried to keep him in the bed and from falling on his face. Security was also called. While Balaji was at the bedside another 2mg of Ativan was given IV with no effect, pt continued to try to be on knees and climb out of bed. Haldol given 2mg IV per orders with no effect. 2 mg Morphine given with some calming. Transported to CT and attempted CT after another 2 mg of Morphine with Balaji and RT at bedside, still not able to be still or follow directions. Returned to ICU with provider and RT at bedside and 1:1 BRAZER CRAWLER TORCH at bedside with bilat soft wrist restaints to keep PICC and shah in pt. Continues to call out. Med with Apresoline 10 mg for elevated BP. Pt continues to be delusional seeing son and ???
[2019-05-04 05:34] LABS: Add Manual Diff / Slide Review NO; Basophils Absolute Auto 0 /uL (0-100); Basophils Percent Auto 0.5 % (0-2); Eosinophils Absolute Auto 200 /uL (0-450); Eosinophils Percent Auto 1.9 % (2-4); Hematocrit 26.8 % (41-53); Hemoglobin 9.3 g/dL (13.5-17.5); Lymphocytes Absolute Auto 1200 /uL (1100-4500); Lymphocytes Percent Auto 12.4 % (25-40); Mean Corpuscular HGB Conc 34.7 % (30-36); Mean Corpuscular Volume 89.4 fL (80-100); Monocytes Absolute Auto 800 /uL (0-900); Monocytes Percent Auto 8.6 % (3-14); Neutrophils Absolute Auto 7300 /uL (1500-7000); Neutrophils Percent Auto 76.6 % (50-75); Platelet Count 210 X10^3/uL (150-400); Red Blood Cell Count 2.99 X10^6/uL (4.5-5.9); Red Cell Distribution Width 13.8 % (11.6-14.8); White Blood Cell Count 9.6 X10^3/uL (4.5-11.0)
[2019-05-04 05:37] LABS: Alanine Aminotransferase 38 IU/L (21-72); Albumin 3.3 g/dL (3.5-5.0); Albumin Globulin Ratio 1.1 (1.0-2.8); Alkaline Phosphatase 43 U/L (38-126); Aspartate Aminotransferase 29 IU/L (17-59); BUN Creatinine Ratio 11.1 (6-22); Bilirubin Total 0.6 mg/dL (0.2-1.3); Blood Urea Nitrogen 10 mg/dL (9-20); Calcium 8.7 mg/dL (8.4-10.2); Carbon Dioxide 26 mmol/L (22-32); Chloride 105 mmol/L (98-107); Estimated Glomerular Filt Rate > 60.0 mL/min (>60); Glucose 92 mg/dL (70-100); HEMOLYSIS < 15 (0-50); Potassium 3.1 mmol/L (3.4-5.1); Sodium 141 mmol/L (137-145); Total Protein 6.3 g/dL (6.3-8.2)
[2019-05-04 05:40] LABS: HCO3 ABG 22 mmol/L (22-26); PCO2 ABG 32.2 mmHg (35-45); PO2 ABG 79 mmHg (80-100); TCO2 ABG 23 mmol/L (21-31); pH ABG 7.45 (7.35-7.45)
[2019-05-04 05:41] LABS: Fractionated Inspired Oxygen 21; Oxygen Saturation ABG 96 % (95-100)
[2019-05-04] MEDS: LABETALOL 20 MG/4 ML SYRINGE 10 MG IV (05:45)
--- NOTE | 2019-05-04 06:00 | DI.RAD.S_ITS ---
PROCEDURE: XR CHEST 1V INDICATIONS: s/p intubation TECHNIQUE: One view of the chest was acquired. COMPARISON: [facility], CR, XR CHEST 1V, 05/03/2019, 6:01. [facility], CR, XR CHEST 1V, 05/01/2019, 5:42. [facility], CR, XR CHEST 1V, 04/29/2019, 13:23. [facility], CR, XR CHEST 1V, 04/26/2019, 15:17. FINDINGS: Surgical changes and devices: The endotracheal tube and nasogastric tube have been removed. The right-sided central line catheter is unchanged. Lungs and pleura: There continues to be hilar prominence with associated mild adjacent pulmonary consolidation within the bilateral infrahilar regions. There our small bilateral pleural effusions and associated mild basilar atelectasis. No definite pneumothorax is appreciated. Mediastinum: Mediastinal contours appear normal. The heart appears to be mildly enlarged. There is aortic atherosclerosis. Bones and chest wall: No suspicious bony lesions. Overlying soft tissues appear unremarkable. IMPRESSION: 1. Borderline cardiomegaly with probable mild pulmonary edema. 2. Small bilateral effusions. 3. Mild bilateral infrahilar consolidation is more pronounced on the current study and likely represents atelectasis. Superimposed pneumonia or aspiration cannot be excluded. Dictated by: Kyle Rosario M.D. on 05/04/2019 at 7:03 Approved by: Kyle Rosario M.D. on 05/04/2019 at 7:05
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
[2019-05-04] MEDS: buPROPion XL 150 MG TAB PO (08:11)
[2019-05-04] MEDS: LORazepam 1 MG TABLET 2 MG PO (08:11)
[2019-05-04] MEDS: LISINOPRIL 20 MG TABLET 40 MG PO (08:17)
[2019-05-04] MEDS: BACITRACIN 28 GM OINT 1 APPLIC TOP ×2 (08:20→20:24)
[2019-05-04] MEDS: FUROSEMIDE 20 MG/2 ML VIAL IV (08:20)
--- NOTE | 2019-05-04 09:08 | PC.NURSE ---
Addendum entered by Lexi Stone R.N. 05/04/19 15:06: Pt has been tolerating PO intake, although drowsy after meds this AM. Spo2 maintained on RA 93% or greater, Pt has been cooperative with repositioning. Restraints intact and ROM circulation assessment per charting. Pt grimaces with swallow and states back is Hurting BP improved with starting of PO meds. \ Addendum entered by Lexi Stone R.N. 05/04/19 10:00: Bedside swallow eval passed, Trial of h20 with Pt sitting up right in bed, asp precautions monitored, Pt has removed NC, and Spo2 96% RA. RR and effort significantly improved with HOB elevated. Resp stridor gone, tolerating RA with no drop in sat. Dr Hernandez into see Pt, addressed sedation options for today, and diet. Original Note: Am shift Pt is quite restless and agitated this AM , significant meds needed to attempt to keep him safe, soft wrist restraints in place, still actively attempting to remove lines. Pt is oriented to self only, able to follow brief directions, Relax your arm, But remains agitated. HOB elevated and attempted PO sip, tolerated, though facial grimace and verbal confirmation of pain with swallow. Coughs when asked by staff, and appears to protect airway. Spo2 95% RA
[2019-05-04] MEDS: PANTOPRAZOLE 40 MG VIAL IV (09:23)
[2019-05-04] MEDS: ENOXAPARIN 40 MG/0.4 ML SYRINGE SUBCUT (09:24)
[2019-05-04] MEDS: PANTOPRAZOLE 40 MG TABLET PO (09:24)
[2019-05-04] MEDS: SERTRALINE 50 MG TABLET 100 MG PO (09:25)
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
[2019-05-04] MEDS: hydroCHLOROthiazide 25 MG TABLET 50 MG PO (11:30)
[2019-05-04] MEDS: chlordiazePOXIDE 25 MG CAPSULE 100 MG PO ×2 (14:53→20:23)
[2019-05-04] MEDS: THIAMINE 100 MG TABLET PO (14:53)
[2019-05-04] MEDS: PHENobarbital 32.4 MG TABLET 64.8 MG PO ×2 (14:56→20:23)
--- NOTE | 2019-05-04 15:16 | CM.DPC ---
DCP/continued: Reviewed chart. Spoke with MD in AM rounds. Per team, patient self extubated himself yesterday 05-03-19. Dr. Hernandez reports that he will be attempting to keep patient calm/sleepy today. Patient continues with ETOH withdrawal. P: DIABETES TRAINER assessment when patient medically appropriate to participate. Possible DCR/detainment under Javan's Law pending assessment (see hospitalization history for details). CHRISTINA Stokes
[2019-05-04] MEDS: POTASSIUM CHLORIDE 60 MEQ in SODIUM CHLORIDE 0.9% 500 ML 88.333 ML IV (15:54)
[2019-05-04] MEDS: CARVEDILOL 3.125 MG TABLET PO (16:51)
--- NOTE | 2019-05-04 16:56 | PC.NURSE ---
Addendum entered by Sophia Brunner R.N. 05/04/19 20:53: 2030 -Pt awake, c/o discomfort, Restraints removed for care. ROM, reposition, skin assessment. Pt again grabbed at tubes and wires, removing radiation monitor. Attempt to redirect and reorient to treatment plan, Pt verbalized understanding but continues to pull at lines. Restraints replaced. Pt O2 sats 91% on RA, NC remains off r/t increased agitation. Attempt to encourage IS use, Pt with difficulty inhaling rather than exhaling. Pt then asking to call his roommate william Pt stating that he needs to tell roommate where his hernandez is kept, so that he can pay the bills. Encouraged pt not to make financial arrangements while not mentating clearly. Encourage pt to make call in the morning after he has had some sleep. Reoriented to time. Call light in reach. Bed alarm on. Addendum entered by Sophia Brunner R.N. 05/04/19 19:05: 1830 - Pt awake, set up for meal. Assist to eat, reinforced swallow precautions. Pt continues to c/o pain to back and headache. Following meal, reinforced IS use. 10 breaths x 500. Needs encouragement and reinforcement. Morphine given for pain. Bed alarm on. Monitor. Original Note: 1600 - Pt awake and able to follow simple directions. Restraints released for care, however pt immediately grabbed at shah catheter. Inc care and repositioned. Restraints replaced. Pt set up reviewed call light use, needs reinforcement. Bed alarm on.
[2019-05-04] MEDS: TRAZODONE 50 MG TABLET PO (20:23)
[2019-05-05] VITALS (13 sets, daily range): BP systolic 102–158; BP diastolic 60–117; PULSE 61–81; RESP 16–28; TEMP 36.6–37.5; O2SAT 87–98
[2019-05-05] MEDS: MORPHINE 2 MG/ML INJ IV ×4 (01:02→20:08)
[2019-05-05] MEDS: KETOROLAC 15 MG/ML VIAL IV ×4 (03:39→22:39)
[2019-05-05 05:16] LABS: Hematocrit 25.8 % (41-53); Hemoglobin 8.8 g/dL (13.5-17.5); Mean Corpuscular HGB Conc 34.4 % (30-36); Mean Corpuscular Hemoglobin 31.2 PG (26-34); Mean Corpuscular Volume 90.9 fL (80-100); Platelet Count 232 X10^3/uL (150-400); Red Blood Cell Count 2.83 X10^6/uL (4.5-5.9); White Blood Cell Count 6.9 X10^3/uL (4.5-11.0)
[2019-05-05 05:19] LABS: Alanine Aminotransferase 31 IU/L (21-72); Albumin Globulin Ratio 1.1 (1.0-2.8); Alkaline Phosphatase 36 U/L (38-126); Aspartate Aminotransferase 23 IU/L (17-59); Bilirubin Total 0.6 mg/dL (0.2-1.3); Blood Urea Nitrogen 12 mg/dL (9-20); Calcium 8.3 mg/dL (8.4-10.2); Carbon Dioxide 28 mmol/L (22-32); Chloride 103 mmol/L (98-107); Estimated Glomerular Filt Rate > 60.0 mL/min (>60); Globulin 2.8 g/dL (1.7-4.1); Glucose 93 mg/dL (70-100); HEMOLYSIS < 15 (0-50); Potassium 3.4 mmol/L (3.4-5.1); Sodium 138 mmol/L (137-145); Total Protein 5.8 g/dL (6.3-8.2)
[2019-05-05 05:27] LABS: Add Manual Diff / Slide Review YES
[2019-05-05 05:29] LABS: Neutrophils Absolute Manual 4830 /uL (3000-5900); Polychromasia 1+; Total Cells Counted 100
--- NOTE | 2019-05-05 06:00 | DI.RAD.S_ITS ---
PROCEDURE: XR CHEST 1V INDICATIONS: s/p intubation TECHNIQUE: One view of the chest was acquired. COMPARISON: [facility], CR, XR CHEST 1V, 05/03/2019, 6:01. [facility], CR, XR CHEST 1V, 05/02/2019, 6:24. [facility], CR, XR CHEST 1V, 05/04/2019, 5:45. FINDINGS: Surgical changes and devices: Right-sided PICC line is unchanged. Lungs and pleura: There is increased pulmonary vascularity. There is mild progressive appearance of retrocardiac opacity. Mediastinum: Mediastinal contours appear normal. Heart size is enlarged. Bones and chest wall: No suspicious bony lesions. Overlying soft tissues appear unremarkable. IMPRESSION: Persistent increased pulmonary vascularity suggestive of edema. Developing retrocardiac opacity likely reflective of airspace disease such as pneumonia and/or atelectasis is noted. Dictated by: Lakshmi Stewart M.D. on 05/05/2019 at 8:39 Approved by: Lakshmi Stewart M.D. on 05/05/2019 at 8:42
[2019-05-05] MEDS: ENOXAPARIN 40 MG/0.4 ML SYRINGE SUBCUT (08:26)
[2019-05-05] MEDS: LISINOPRIL 20 MG TABLET 40 MG PO (08:26)
[2019-05-05] MEDS: chlordiazePOXIDE 25 MG CAPSULE 100 MG PO (08:26)
[2019-05-05] MEDS: hydroCHLOROthiazide 25 MG TABLET 50 MG PO (08:27)
[2019-05-05] MEDS: FOLIC ACID 1 MG TABLET PO (08:27)
[2019-05-05] MEDS: buPROPion XL 150 MG TAB PO (08:27)
[2019-05-05] MEDS: PHENobarbital 32.4 MG TABLET 64.8 MG PO (08:27)
[2019-05-05] MEDS: THIAMINE 100 MG TABLET PO (08:30)
[2019-05-05] MEDS: SERTRALINE 50 MG TABLET 100 MG PO (08:30)
[2019-05-05] MEDS: PANTOPRAZOLE 40 MG TABLET PO (08:30)
[2019-05-05] MEDS: BACITRACIN 28 GM OINT 1 APPLIC TOP ×2 (08:32→20:05)
[2019-05-05] MEDS: CARVEDILOL 3.125 MG TABLET PO ×2 (08:32→18:25)
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
[2019-05-05] MEDS: chlordiazePOXIDE 25 MG CAPSULE 75 MG PO (20:07)
--- NOTE | 2019-05-05 21:17 | PC.NURSE ---
Addendum entered by Raquel Rasmussen R.N. 05/05/19 22:52: 22:50- pt is snoring, not taking po. Held phenobarbital and trazadone. Spoke to Balaji SHARP to report this. New order for IVF. Addendum entered by Raquel Rasmussen R.N. 05/05/19 21:35: pt has not voided since catheter removed. Bladder scan done shows 172 ml. Pt only has had one cup of coffee and a few sips of water with meds. Notified ARON Joseph and received order to encourage po intake and if no void by midnight, will plan for IV fluids. Addendum entered by Raquel Rasmussen R.N. 05/05/19 21:23: Pt talking, answering appropriately but speech is delayed. Pt also has slow movements and poor fine motor skills. Hands are swollen. When sleeping O2 sats drop to 86% intermittently, with associated snoring. O2 at one liter applied. Original Note: rossy garg
[2019-05-05] MEDS: DEXTROSE 5%-0.9% NS 1,000 ML 50 ML IV (23:53)
[2019-05-06] VITALS (7 sets, daily range): BP systolic 103–137; BP diastolic 50–77; PULSE 60–72; RESP 17–24; TEMP 36.6–36.9; O2SAT 92–98
[2019-05-06] MEDS: PHENobarbital 32.4 MG TABLET 64.8 MG PO (01:29)
[2019-05-06] MEDS: TRAZODONE 50 MG TABLET PO ×2 (01:29→21:39)
[2019-05-06] MEDS: MORPHINE 2 MG/ML INJ IV (01:33)
[2019-05-06 05:24] LABS: Add Manual Diff / Slide Review NO; Basophils Absolute Auto 100 /uL (0-100); Basophils Percent Auto 0.9 % (0-2); Eosinophils Absolute Auto 200 /uL (0-450); Eosinophils Percent Auto 2.9 % (2-4); Hematocrit 26.7 % (41-53); Lymphocytes Absolute Auto 1400 /uL (1100-4500); Lymphocytes Percent Auto 23.2 % (25-40); Mean Corpuscular HGB Conc 33.6 % (30-36); Mean Corpuscular Hemoglobin 30.4 PG (26-34); Mean Corpuscular Volume 90.4 fL (80-100); Monocytes Absolute Auto 400 /uL (0-900); Monocytes Percent Auto 7.3 % (3-14); Neutrophils Absolute Auto 4000 /uL (1500-7000); Neutrophils Percent Auto 65.7 % (50-75); Platelet Count 243 X10^3/uL (150-400); Red Blood Cell Count 2.96 X10^6/uL (4.5-5.9); White Blood Cell Count 6.1 X10^3/uL (4.5-11.0)
[2019-05-06] MEDS: KETOROLAC 15 MG/ML VIAL IV ×4 (05:25→21:40)
[2019-05-06 05:29] LABS: Alanine Aminotransferase 29 IU/L (21-72); Albumin 2.9 g/dL (3.5-5.0); Alkaline Phosphatase 35 U/L (38-126); Aspartate Aminotransferase 20 IU/L (17-59); Bilirubin Total 0.4 mg/dL (0.2-1.3); Blood Urea Nitrogen 16 mg/dL (9-20); Calcium 8.4 mg/dL (8.4-10.2); Carbon Dioxide 28 mmol/L (22-32); Chloride 101 mmol/L (98-107); Estimated Glomerular Filt Rate > 60.0 mL/min (>60); Globulin 2.8 g/dL (1.7-4.1); Glucose 104 mg/dL (70-100); HEMOLYSIS < 15 (0-50); Potassium 3.6 mmol/L (3.4-5.1); Sodium 136 mmol/L (137-145); Total Protein 5.7 g/dL (6.3-8.2)
[2019-05-06] MEDS: PANTOPRAZOLE 40 MG TABLET PO (06:49)
[2019-05-06] MEDS: ENOXAPARIN 40 MG/0.4 ML SYRINGE SUBCUT (08:35)
[2019-05-06] MEDS: SERTRALINE 50 MG TABLET 100 MG PO (08:35)
[2019-05-06] MEDS: hydroCHLOROthiazide 25 MG TABLET 50 MG PO (08:35)
[2019-05-06] MEDS: buPROPion XL 150 MG TAB PO (08:35)
[2019-05-06] MEDS: FOLIC ACID 1 MG TABLET PO (08:36)
[2019-05-06] MEDS: chlordiazePOXIDE 25 MG CAPSULE 75 MG PO ×2 (08:36→21:39)
[2019-05-06] MEDS: FUROSEMIDE 20 MG/2 ML VIAL IV (08:36)
[2019-05-06] MEDS: LISINOPRIL 20 MG TABLET 40 MG PO (08:36)
[2019-05-06] MEDS: THIAMINE 100 MG TABLET PO (08:37)
[2019-05-06] MEDS: CARVEDILOL 3.125 MG TABLET PO ×2 (08:38→18:03)
[2019-05-06] MEDS: BACITRACIN 28 GM OINT 1 APPLIC TOP ×2 (08:38→21:38)
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
[2019-05-06 08:41] LABS: Vitamin B1 127 nmol/L (78-185)
[2019-05-06] MEDS: TRAMADOL 50 MG TABLET PO ×2 (08:49→23:55)
--- NOTE | 2019-05-06 12:41 | PC.NURSE ---
pt alert and mostly oriented, but remains weak and with poor balance and with impulse. able to feed self and using his cell phone clumsily. able to express needs and assisted up to chair and ambulate in halls several times this shift- soft spoken but mostly oriented - made floor care no tele status this am
--- NOTE | 2019-05-06 14:40 | CM.DPC ---
DCP/Continued: Unable to see patient today due to caseload. Nursing reports patient with some confusion. TEAM ASSISTANT/Aleksandra aware and picking up case on 05-07-19. P: Pending. Patient needs TEAM ASSISTANT assessment for potential ETOH rehabilitation vs. SNF for therapy. CHRISTINA Stokes
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
--- NOTE | 2019-05-06 22:30 | PC.NURSE ---
rossy note pt up in chair, then showered before dinner. Pt got in bed after dinner and was doing stretches while on his knees in bed. Pt fell asleep for 3 hours and woke thinking it was morning. Assisted pt to ambulate in [place]. pt did pushups against the wall. Pt now sitting in chair, playing with deck of cards.
[2019-05-07] VITALS (9 sets, daily range): BP systolic 131–145; BP diastolic 54–79; PULSE 62–71; RESP 16–20; TEMP 36.1–36.7; O2SAT 93–98
[2019-05-07] MEDS: LORazepam 1 MG TABLET PO (00:10)
[2019-05-07] MEDS: KETOROLAC 15 MG/ML VIAL IV ×2 (03:33→09:57)
[2019-05-07 04:08] LABS: Add Manual Diff / Slide Review NO; Basophils Absolute Auto 100 /uL (0-100); Basophils Percent Auto 1.1 % (0-2); Eosinophils Absolute Auto 200 /uL (0-450); Eosinophils Percent Auto 3.3 % (2-4); Hemoglobin 9.2 g/dL (13.5-17.5); Lymphocytes Absolute Auto 1900 /uL (1100-4500); Lymphocytes Percent Auto 26.1 % (25-40); Mean Corpuscular HGB Conc 34.3 % (30-36); Mean Corpuscular Hemoglobin 31.2 PG (26-34); Mean Corpuscular Volume 90.9 fL (80-100); Monocytes Absolute Auto 400 /uL (0-900); Monocytes Percent Auto 5.1 % (3-14); Neutrophils Absolute Auto 4700 /uL (1500-7000); Neutrophils Percent Auto 64.4 % (50-75); Platelet Count 291 X10^3/uL (150-400); Red Blood Cell Count 2.97 X10^6/uL (4.5-5.9); Red Cell Distribution Width 14.1 % (11.6-14.8); White Blood Cell Count 7.3 X10^3/uL (4.5-11.0)
[2019-05-07 04:19] LABS: Alanine Aminotransferase 25 IU/L (21-72); Albumin Globulin Ratio 1.1 (1.0-2.8); Alkaline Phosphatase 40 U/L (38-126); Aspartate Aminotransferase 20 IU/L (17-59); BUN Creatinine Ratio 20.9 (6-22); Bilirubin Total 0.3 mg/dL (0.2-1.3); Blood Urea Nitrogen 23 mg/dL (9-20); Calcium 8.5 mg/dL (8.4-10.2); Carbon Dioxide 29 mmol/L (22-32); Chloride 100 mmol/L (98-107); Estimated Glomerular Filt Rate > 60.0 mL/min (>60); Globulin 2.7 g/dL (1.7-4.1); Glucose 114 mg/dL (70-100); HEMOLYSIS < 15 (0-50); Potassium 3.3 mmol/L (3.4-5.1); Sodium 137 mmol/L (137-145); Total Protein 5.7 g/dL (6.3-8.2)
[2019-05-07] MEDS: POTASSIUM CHLORIDE 40 MEQ in SODIUM CHLORIDE 0.9% 500 ML 130 ML IV (06:14)
--- NOTE | 2019-05-07 06:26 | PC.NURSE ---
Patient is oriented to person and place, is cooperative, but was restless at midnight and said he felt anxious and frustrated requested something more to sleep CIWA 9, medicated with 1mg PO Ativan, prn Tramodol and scheduled IV Toradol given for back and head pain. 40Meq K+ rider infusing this am as ordered. Bed alarm on and patient in view of staff.
[2019-05-07] MEDS: SERTRALINE 50 MG TABLET 100 MG PO (08:53)
[2019-05-07] MEDS: ENOXAPARIN 40 MG/0.4 ML SYRINGE SUBCUT (08:53)
[2019-05-07] MEDS: buPROPion XL 150 MG TAB PO (08:54)
[2019-05-07] MEDS: THIAMINE 100 MG TABLET PO (08:54)
[2019-05-07] MEDS: FUROSEMIDE 20 MG/2 ML VIAL IV (08:54)
[2019-05-07] MEDS: LISINOPRIL 20 MG TABLET 40 MG PO (08:54)
[2019-05-07] MEDS: hydroCHLOROthiazide 25 MG TABLET 50 MG PO (08:54)
[2019-05-07] MEDS: FOLIC ACID 1 MG TABLET PO (08:54)
[2019-05-07] MEDS: chlordiazePOXIDE 25 MG CAPSULE 75 MG PO (08:55)
[2019-05-07] MEDS: BACITRACIN 28 GM OINT 1 APPLIC TOP ×2 (08:57→20:44)
[2019-05-07] MEDS: CARVEDILOL 3.125 MG TABLET PO ×2 (08:58→17:43)
[2019-05-07] MEDS: PANTOPRAZOLE 40 MG TABLET PO (09:00)
[2019-05-07] MEDS: TRAMADOL 50 MG TABLET PO (09:00)
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
--- NOTE | 2019-05-07 11:24 | PC.NURSE ---
Addendum entered by Bertha Byers R.N. 05/07/19 14:28: pt remains impulsive and forgetful to use call light prior to getting up from chair or out of bed- orders received to remove forehead sutures Original Note: PT CONTINUES TO BE IMPULSIVE IN HIS ACTIONS- QUICK TO GET UP AND AT TIMES A BIT UNSTEADY- HE IS USUALLY ABLE TO CORRECT HIS BALANCE FAIRLY EASILY- HE IS BEING COOPERATIVE WITH MOST STAFF REQUESTS- HE IS DOING PUSH UPS ON THE FLOOR AND OFF THE WALL IN THE HALLS OF ICU- PRACTICING HIS BALANCING ON ONE FOOT WITHOUT DIFFICULTY- VOIDING WELL IN BR- NEEDING A BM- WILLING TO DRINK PRUNE JUICE- SUTURES REMAIN TO RIGHT FOREHEAD
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
--- NOTE | 2019-05-07 13:49 | OT.IP.EVAL ---
Current Diagnoses Alcohol use, unspecified with intoxication, unspecified (04/26/19) Past Medical History (Last Reviewed 04/26/19 @ 17:55 by Андрей Garcia MD) Anxiety (Acute) Bipolar 1 disorder (Acute) Depression (Acute) Hypertension (Acute) Occupational Therapy Inpatient Evaluation/Re-Eval M1 PT/OT-IP Prior Functional Status Start: 05/07/19 13:11 Freq: NEEDED Status: Active Protocol: Document 05/07/19 13:12 [facility] (Rec: 05/07/19 13:49 [facility] [id number]) Medical Review Prior Functional Status Medical History Reviewed Yes: dysphagia diet, unknown which type Diet/Fluid Consistency Dysphagia Mechanical Communication Able to make needs known. No known pre-morbid deficits. Mobility and Gait Pt was independent with all functional mobility, no need for assistive device Activities of Daily Living and IADL's Independent Prior Functional Level (Other details) Oliverio reports he does the majority of the cooking and cleaning at home. Pt states he does not drive either rides his bike or get rides for shopping. Social History Household Members other Living Arrangements House Number of Floors (Floors) One Floor Number of Stairs To Enter/Railing? 2 LIDYA at front door with L railing ascending Home Environment Standard Height Toilet,Walk in Shower,Tub/Shower Home Equipment Grab Bars In Shower Employment Status Unknown Additional Social History Comment Oliverio lives with a roommate, Denys. Unclear about employment status. Per SIDEWALK INSPECTOR note, son says he is looking for work. M2 OT-IP Current Condition Start: 05/07/19 13:11 Freq: Status: Active Protocol: Document 05/07/19 13:12 [facility] (Rec: 05/07/19 13:49 [facility] [id number]) Occupational Therapy Current Condition Current Condition Evaluation Date 05/07/19 Treatment Diagnosis Acute hypoxic respiratory failure, confusion Diagnosis Onset Date 04/26/19 Weight Bearing Status Weight Bearing Status Weight Bear as Tolerated M3 OT- IP Subjective and Pain Start: 05/07/19 13:11 Freq: Status: Active Protocol: Document 05/07/19 13:12 [facility] (Rec: 05/07/19 13:49 [facility] [id number]) OT- Subjective Occupational Therapy Visit Type Type Initial Evaluation Visit Start Time 11:45 Visit Stop Time 12:35 Total Visit Minutes 50 Occupational Therapy Visit Comments Patient Comments Pt agreeable to do cognitive assessments. Patient/Caregiver Goals Pt states not wanting to go home and wants to move to another place. OT Pain Assessment Pain When Pain Assessed At Rest Pain Present Pain Present Denied Pain M4 OT- IP ADL's Start: 05/07/19 13:11 Freq: Status: Active Protocol: Document 05/07/19 13:12 [facility] (Rec: 05/07/19 13:49 [facility] [id number]) OT ADL-Grooming General Evaluation Grooming Ability Independent Comments OT Grooming Comments Pt able to wash his hands and face after set-up. OT ADL-Dressing General Eval Lower Body Dressing Ability Independent Comments OT Dressing Comments While sitting on the egde of the recliner , pt able to zeyad /doff socks with good balance. OT ADL-Toileting General Evaluation Toileting Ability Standby Assistance Devices Toileting Assistive Devices Grab Bars Comments OT Toileting Comments SBA for safety as unsteady on his feet while trying to adjust his gown while standing in front of the toilet and needing use of grab bar to re- gain his balance and therapist CGA to assist as well. OT ADL-Bathing Comments OT Bathing Comments not performed M5 OT- IP IADL's Start: 05/07/19 13:11 Freq: Status: Active Protocol: Document 05/07/19 13:12 [facility] (Rec: 05/07/19 13:49 [facility] [id number]) OT-Instrumental Activities of Daily Living Home Safety Awareness Ability to Problem Solve Emergency Able to Problem Solve Situations Home Safety Comments Pt able to correctly answer home safety situation questionnaire with 100% accuracy. Money Management Money Management Comments At this time, pt would benefit to having assist , see cognition section below for detail. Driving Driving Caregiver Provides Supervision M6 OT- IP Functional Cognition Start: 05/07/19 13:11 Freq: Status: Active Protocol: Document 05/07/19 13:12 [facility] (Rec: 05/07/19 13:49 [facility] [id number]) Cognitive Factors Limiting Selfcare Function Cognitive Ability Level of Alertness Alert Patient Orientation Name,Age,Birthday,Month,Date, Year,Day of Week,Place, Situation Attention Span Ability Capable of Focused Attention, Unable to Sustain Attention Ability to Follow Commands Able to Follow One Step Commands Memory Description Short Term Impaired Safety Awareness Underestimates Need for Assistance Problem Solving Ability Unable to Identify Errors, Needs Assist to Identify Solutions Executive Function Ability Unable to Filter Distractions, Unable to Organize Plans, Unable to Remember Details Cognitive Tests SLUMS Pt scored 17/30 , normal score is 25+. Pt's current score implies cognitive deficits/ dementia. Pt's score may also be affected by medications taken, as had Ativan in early AM. Pt unable to subtract 2 digit numbers, only able to name 14 animals in one minute, recall 4/5 objects after time passed, unable to states 4 digit number backwards, unable to draw a clock or correct time accurately, only able to answer 2/4 questions after paragraph read. Cognitive Comments Cognitive Assessment Comments Pt highly distracted, a bit hard of hearing therefore questionable whether pt has difficulty with comprehension or just not able to hear the directions clearly. Pt unable to complete [place] Making PArt B due to difficulty to understand and follow directions and needing MAX vc and only able to complete 1/2 the assessment in 6 minutes. The assessment implies pt has poor executive function, mental flexibility, and visual processing. OT- Vision and Hearing OT- Hearing Assessment OT- Hearing Assessment Hearing Impaired OT- Vision Assessment Visual Acuity Glasses For Reading Vision Assessment Comments WFL for left eye, Right eye decreased ability to scan. M7 OT- IP Mobility and Balance Start: 05/07/19 13:11 Freq: Status: Active Protocol: Document 05/07/19 13:12 [facility] (Rec: 05/07/19 13:49 [facility] [id number]) OT-Transfer Assessment Sit to and From Stand Sit to and from Stand Standby Assistance Transfers Transfer Ability Standby Assistance,Contact Guard Assistance Technique Transfer Destination Chair Comments Mobility Comments Pt has a very wide base of support for walking. I had a lose of balance while trying to stand and us the toilet and needing to use grab bar and therapist to regain his balance. OT- Balance Assessment Sitting Balance and Reactions Static Sitting Balance Ability Normal Dynamic Sitting Balance Ability Normal Standing Balance and Reactions Static Standing Balance Ability Good Dynamic Standing Balance Ability Fair M8 OT- IP Objective Assessments Start: 05/07/19 13:11 Freq: Status: Active Protocol: Document 05/07/19 13:12 [facility] (Rec: 05/07/19 13:49 [facility] [id number]) OT Gross Range of Motion Upper Extremity Range of Motion Assessment Within Functional Limits OT Strength Upper Extremity Strength Assessment Within Functional Limits OT-Muscle Tone Assessment Muscle Tone WNL Yes M9 OT- IP Assessment and Plan Start: 05/07/19 13:11 Freq: Status: Active Protocol: Document 05/07/19 13:12 [facility] (Rec: 05/07/19 13:49 [facility] [id number]) OT Summary Assessment and Plan Potential Rehabilitation Potential Fair Analytic Complexity at Evaluation Low Summary OT Impairments Balance,Functional Cognition, Functional Mobility,Toileting, Bathing,Toilet Transfers, Shower Transfers Progress Towards Goals Slow Progress due to Medical Issues,Slow Progress due to Cognition Assessment Summary Pt low complexity and main barrier is decreased functional cognition , decreased safety awareness, impulsive, and at this time not at baseline for his cognition as currently taking medications that may be affecting his ability to think . Therefore recommend pt to go home with assist . Goals Grooming Goal Independent Dressing Goal Independent Toileting Goal Independent Bathing Goal Standby Assistance Toilet Transfer Goal Independent Shower Transfer Goal Independent Days to Meet Goals 5 Frequency of Treatment Frequency Of Treatment Once a Day Treatment Plan OT Treatment Plan ADL Training,Functional Cognition Training,Functional Mobility,Patient/Family Education,Discharge Planning Other Treatment Recommendations and Next ADL safety for showering, further cognitive assessments. Treatment Focus Discharge Recommendations OT Discharge Recommendations Home with Assistance Other Discharge Recommendations Pt may benefit from ETOH rehab
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
--- NOTE | 2019-05-07 14:30 | ST.IPCSEOM ---
Current Diagnoses Alcohol use, unspecified with intoxication, unspecified (04/26/19) Past Medical History (Last Reviewed 04/26/19 @ 17:55 by Андрей Garcia MD) Anxiety (Acute Medical) Bipolar 1 disorder (Acute Medical) Depression (Acute Medical) Hypertension (Acute Medical) Speech-Language Pathology Swallow Evaluation POLE FRAMER MACHINE Clinical Swallow Evaluation Start: 05/07/19 15:59 Freq: Status: Active Protocol: Document 05/07/19 15:59 TLC (Rec: 05/07/19 16:10 TLC [id number]) Clinical Swallow Evaluation Session Time Visit Start Time 14:10 Visit Stop Time 14:30 Total Visit Minutes 20 Visit Information Visit Number [address] Choudhary Reason for Referral Pain when swallowing Setting Assessment Location Acute Care Visit Type Note Type Treatment Note Next Note Type Next Note Type Treatment Note Patient Information History Patient intubated and extubated twice during this hospitalization. Currently on thin liquids/dysphagia advanced textures ordered by MD. Reports pain when swallowing. Subjective Observations Patient was sitting up in bed with his eyes closed. He awoke to my voice and was cooperative during evaluation. Evaluation Liquids Trialed Thin Oral Phase Comments Normal color and moisture of oral mucosa. No oral motor impairments. No oral phase dysphagia observed. Speech somewhat slow and mildly dysphonic with hoarse vocal quality. Pharyngeal Phase Comments No obvious concern for aspiration at this time. No coughing or choking observed with PO trials. Patient's biggest complaint is pain when swallowing or coughing. Education provided regarding likely pharyngeal swelling due to multiple intubations and extubations. Recommend warm or cold soothing foods such as soups, tea, smoothie and ice cream. Patient verbalized understanding and expressed gratitude. Findings Rehabilitation Potential Good Impressions Odynophagia and mild dysphonia s/p multiple intubations/ extubations. No overt signs of aspiration. Patient safe for regular textures, but will likely prefer more soothing textures such as warm liquids or purees. Diet Recommendations Liquids Order Thin Diet Order Dysphagia Advanced Medication Recommendations As Tolerated Treatment Plan Appropriate for Therapy Yes Therapy Recommendations Patient and nursing to advance diet as tolerated. Follow-up for further education as needed. Collaborate with OT regarding cognitive rehab.
--- NOTE | 2019-05-07 17:39 | PC.NURSE ---
very impulsive but will wait if instructed to
[2019-05-07] MEDS: chlordiazePOXIDE 25 MG CAPSULE 50 MG PO (20:44)
[2019-05-07] MEDS: TRAZODONE 50 MG TABLET PO (20:45)
--- NOTE | 2019-05-07 20:58 | PC.NURSE ---
2015 - Pt up ambulating around the unit. Impulsive movements, however mostly steady gait. Pt doing wall push ups and squats. Reinforced safety. Pt standing at nursing station, talk about his family. Able to take po meds without difficult. Snack provided. Chair alarm on, pt on occasion removes own alarm.
[2019-05-08] VITALS (8 sets, daily range): BP systolic 120–150; BP diastolic 64–84; PULSE 60–78; RESP 16–20; TEMP 35.9–36.7; O2SAT 91–99
[2019-05-08] MEDS: LORazepam 1 MG TABLET PO (00:37)
[2019-05-08] MEDS: TRAMADOL 50 MG TABLET PO ×3 (04:12→18:27)
--- NOTE | 2019-05-08 04:33 | PC.NURSE ---
C/O not being able to sleep, med with Ativan 1 mg at beginning of shift. At 0400 c/o not being able to sleep, even though has been snoring loudly since 0100. Explained can not give anything else for sleep as it is too close to morning. Then c/o neck pain 04/05 and med with Tramadol. C/o roomate telling him they had to be out of domicile by 05/27/19, replied we would let care management know.
[2019-05-08 06:38] LABS: Alanine Aminotransferase 26 IU/L (21-72); Albumin 3.4 g/dL (3.5-5.0); Albumin Globulin Ratio 1.2 (1.0-2.8); Alkaline Phosphatase 37 U/L (38-126); Aspartate Aminotransferase 21 IU/L (17-59); Bilirubin Total 0.4 mg/dL (0.2-1.3); Blood Urea Nitrogen 22 mg/dL (9-20); Calcium 9.5 mg/dL (8.4-10.2); Carbon Dioxide 30 mmol/L (22-32); Chloride 100 mmol/L (98-107); Estimated Glomerular Filt Rate > 60.0 mL/min (>60); Globulin 2.8 g/dL (1.7-4.1); Glucose 101 mg/dL (70-100); HEMOLYSIS 18 (0-50); Potassium 3.9 mmol/L (3.4-5.1); Sodium 138 mmol/L (137-145); Total Protein 6.2 g/dL (6.3-8.2)
[2019-05-08] MEDS: LISINOPRIL 20 MG TABLET 40 MG PO (08:31)
[2019-05-08] MEDS: CARVEDILOL 3.125 MG TABLET PO ×2 (08:31→16:43)
[2019-05-08] MEDS: hydroCHLOROthiazide 25 MG TABLET 50 MG PO (08:31)
[2019-05-08] MEDS: FOLIC ACID 1 MG TABLET PO (08:32)
[2019-05-08] MEDS: PANTOPRAZOLE 40 MG TABLET PO (08:32)
[2019-05-08] MEDS: SERTRALINE 50 MG TABLET 100 MG PO (08:32)
[2019-05-08] MEDS: chlordiazePOXIDE 25 MG CAPSULE 50 MG PO (08:32)
[2019-05-08] MEDS: THIAMINE 100 MG TABLET PO (08:32)
[2019-05-08] MEDS: buPROPion XL 150 MG TAB PO (08:32)
[2019-05-08] MEDS: BACITRACIN 28 GM OINT 1 APPLIC TOP ×2 (08:33→20:48)
--- NOTE | 2019-05-08 10:37 | ST.IPDYTX ---
Visit Care Team Role Provider Type ARON Pino Primary Care Provider Non-Staff Specialty: Medical Address: [address] [facility], [place], [address] Email: Oliverio Zamora DO Emergency Provider Physician Specialty: Emergency Medicine Address: [address] [place] [address], [address] Email: [email or web address] Qasim Choudhary DO Attending Provider Physician Specialty: Internal Medicine Address: [address] [place] [address], [address] Email: [email or web address] Андрей Garcia MD Admit Provider Physician Other Providers Specialty: General Surgery Address: [address] [place] [address], [address] Email: [email or web address] MOLD CHECKER Dysphagia Treatment MOLD CHECKER Dysphagia Treatment Start: 05/08/19 10:25 Freq: Status: Active Protocol: Document 05/08/19 10:25 LNK (Rec: 05/08/19 10:36 LNK [id number]) Dysphagia Treatment Session Time Visit Start Time 09:10 Visit Stop Time 01:25 Total Visit Minutes 15 Setting Assessment Location Acute Care Visit Type Note Type Treatment Note Patient Information Identification Type Name,ID Wristband Subjective Observations Pt had just completed breakfast and returned from taking shower. soft foods observed on breakfast try with thin liquids. Pt reported that he is not having difficulty with foods/liquids while he is eating. He reports pain with swallow, but no choke/cough. However, he did remark that when he burps, he coughs. Pt noted that he has a history of GERD and is taking medications for his reflux. pt reported that he spoke with Dr. Posada this morning about it. Pt's cough was observed to be hoarse and breathy. Treatment Liquids Trialed Thin Solids Trialed Dysphagia Advanced Administration Type Self-Feeding Oral Strategies Alternate Liquids/Solids Pharyngeal Strategies Alternate Liquids/Solids Assessment Patient Response to Treatment Good Diet Recommendations Comment Pt to upgrade diet as tolerated secondary to pain when swallowing. Medication Recommendations As Tolerated Aspiration Precautions Recommended Precautions Upright at 90 Degrees, Alternate Liquids/Solids,Small Bites/Sips Treatment Plan Appropriate for Continued Therapy No: Recommend D/C from skilled services at this time
--- NOTE | 2019-05-08 10:54 | OT.IP.TRT ---
Current Diagnoses Alcohol use, unspecified with intoxication, unspecified (04/26/19) Occupational Therapy Treatment Note M2 OT-IP Current Condition Start: 05/07/19 13:11 Freq: Status: Active Protocol: Document 05/07/19 13:12 [facility] (Rec: 05/07/19 13:49 [facility] [email or web address]) Occupational Therapy Current Condition Current Condition Evaluation Date 05/07/19 Treatment Diagnosis Acute hypoxic respiratory failure, confusion Diagnosis Onset Date 04/26/19 Weight Bearing Status Weight Bearing Status Weight Bear as Tolerated M3 OT- IP Subjective and Pain Start: 05/07/19 13:11 Freq: Status: Active Protocol: Document 05/08/19 10:39 [facility] (Rec: 05/08/19 10:54 [facility] [email or web address]) OT- Subjective Occupational Therapy Visit Type Type Treatment Note Visit Start Time 09:44 Visit Stop Time 10:33 Total Visit Minutes 49 Occupational Therapy Visit Comments Patient Comments Pt cooperative and just completed showering with the nursing aid. Pt willing to do more cognitive assessments. OT Pain Assessment Pain When Pain Assessed At Rest Pain Present Pain Present Denied Pain M4 OT- IP ADL's Start: 05/07/19 13:11 Freq: Status: Active Protocol: Document 05/08/19 10:39 [facility] (Rec: 05/08/19 10:54 [facility] [email or web address]) OT ADL-Bathing Comments OT Bathing Comments Per nursing aid pt able to do shower while sitting in the shower chair and only needing assist for set- up of soapy wash clothes. However when asked if nursing aid would have been comfortable not being present in the shower she states no due to pt's impulsivity and decreased safety awareness. M5 OT- IP IADL's Start: 05/07/19 13:11 Freq: Status: Active Protocol: Document 05/07/19 13:12 [facility] (Rec: 05/07/19 13:49 [facility] [email or web address]) OT-Instrumental Activities of Daily Living Home Safety Awareness Ability to Problem Solve Emergency Able to Problem Solve Situations Home Safety Comments Pt able to correctly answer home safety situation questionnaire with 100% accuracy. Money Management Money Management Comments At this time, pt would benefit to having assist , see cognition section below for detail. Driving Driving Caregiver Provides Supervision M6 OT- IP Functional Cognition Start: 05/07/19 13:11 Freq: Status: Active Protocol: Document 05/08/19 10:39 [facility] (Rec: 05/08/19 10:54 [facility] [email or web address]) Cognitive Factors Limiting Selfcare Function Cognitive Ability Level of Alertness Alert Patient Orientation Name,Age,Birthday,Month,Date, Year,Day of Week,Place, Situation Attention Span Ability Capable of Focused Attention, Capable of Sustained Attention Ability to Follow Commands Able to Follow One Step Commands Memory Description Short Term Impaired Safety Awareness Underestimates Need for Assistance Problem Solving Ability Unable to Identify Errors, Needs Assist to Identify Solutions Executive Function Ability Unable to Switch Focus,Unable to Filter Distractions,Unable to Organize Plans,Unable to Remember Details Cognitive Tests ACL Pt scored 4.4 out of 6.0 which implies live with someone who does a daily check on the environment and removes any safety hazzards and solve new problems. May need daily food planning, medications provided, financial developer , and setting and getting to appointment. Noted doing the assessment that pt was concentrating so much on the task at hand and forgot to swallow his saliva and noted coming out on his mouth. Cognitive Comments Cognitive Assessment Comments Today pt able to complete [place] Making Part B with [employer] MOD vc and then having to write down the sequence to remind him how to complete the assessment on the paper. Pt score of 5 minutes and 55 seconds. Pt having difficulty to convert the time into second and needing MAX vc and continued education of multiplying by 60 for the minutes and then adding the seconds and to be sure to line up the numbers correctly . Pt score still indicates significant deficits with mental flexibility , visual processing, and executive function. M7 OT- IP Mobility and Balance Start: 05/07/19 13:11 Freq: Status: Active Protocol: Document 05/07/19 13:12 [facility] (Rec: 05/07/19 13:49 [facility] [email or web address]) OT-Transfer Assessment Sit to and From Stand Sit to and from Stand Standby Assistance Transfers Transfer Ability Standby Assistance,Contact Guard Assistance Technique Transfer Destination Chair Comments Mobility Comments Pt has a very wide base of support for walking. I had a lose of balance while trying to stand and us the toilet and needing to use grab bar and therapist to regain his balance. OT- Balance Assessment Sitting Balance and Reactions Static Sitting Balance Ability Normal Dynamic Sitting Balance Ability Normal Standing Balance and Reactions Static Standing Balance Ability Good Dynamic Standing Balance Ability Fair M8 OT- IP Objective Assessments Start: 05/07/19 13:11 Freq: Status: Active Protocol: Document 05/07/19 13:12 [facility] (Rec: 05/07/19 13:49 [facility] [email or web address]) OT Gross Range of Motion Upper Extremity Range of Motion Assessment Within Functional Limits OT Strength Upper Extremity Strength Assessment Within Functional Limits OT-Muscle Tone Assessment Muscle Tone WNL Yes M9 OT- IP Assessment and Plan Start: 05/07/19 13:11 Freq: Status: Active Protocol: Document 05/08/19 10:39 [facility] (Rec: 05/08/19 10:54 [facility] [email or web address]) OT Summary Assessment and Plan Goals Grooming Goal Independent Dressing Goal Independent Toileting Goal Independent Bathing Goal Standby Assistance Toilet Transfer Goal Independent Shower Transfer Goal Independent Days to Meet Goals 3 Treatment Plan OT Treatment Plan ADL Training,Functional Cognition Training,Functional Mobility,Patient/Family Education,Discharge Planning Discharge Recommendations OT Discharge Recommendations Home with Assistance Other Discharge Recommendations Pt may benefit form ETOH rehab
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
--- NOTE | 2019-05-08 14:28 | PC.NURSE ---
Pt has been AO x3 and making needs known with clear speech. Gait is mostly steady. Pt is easily distracted and becomes unsteady while walking if not focused. He is able to self correct. He is intermittently using a fww to assist with his mobility. VSS. His lungs are clear and he is maintaining O2 sats 94-100% on RA. He is using the IS with reminders and getting up to 1750 ML. He is continent of bowel and bladder. He is able to feed himself. He has a good appetite and is drinking fluids appropriately without s/s of aspiration. He is asking appropriate questions regarding plan of care/discharge plan. He is requesting to speak with MECHANOTHERAPIST regarding plan. Notified MECHANOTHERAPIST. Maintaining bed alarm and chair alarm due to fall risk. Provided extensive education to fall risk and safety measures. Pt is intermittently compliant.
--- NOTE | 2019-05-08 15:02 | DIET.PN ---
Dietary Progress Note Assessment: 59y M HT: 160cm WT: 85kg BMI: 33.2 (down from 36.2 on 04/28/19) RD checked in c pt regarding advancing diet. Pt experiencing considerable px in throat still, issues c coughing. Pt enjoys PRO smoothies at meals, prefers soft texture foods until throat px subsides. Pt reflective while conversing I can't believe I , I am am an alcoholic and am going to change my life when I get out of here. Interventions: Continue [facility] soft c pro smoothies tid for now.
[2019-05-08] MEDS: BENZOCAINE/MENTHOL 1 LOZ PKT 1 EACH PO (16:42)
[2019-05-08] MEDS: ACETAMINOPHEN 325 MG TABLET 975 MG PO (16:43)
--- NOTE | 2019-05-08 18:37 | PC.NURSE ---
Addendum entered by Sophia Brunner R.N. 05/08/19 21:49: 2015 - Pt out of bed, ambulating around the room. Standing at counter writing note on his paper and discussing current living situation. Pt reports that he will have to be moving out of his current home. Stating that the home that he is renting is now for sale. Pt discussing difficulties with current roommate. I will probably end up going to [place]. I have family there. Pt attempting to call landlord on the phone. Encouraged pt to wait until tomorrow. Snack provided. Able to take PO meds without difficulty. Pt returned to bed. Comfort measures. Bed alarm on. Original Note: 1829 - Pt up moving about the room. Somewhat unsteady gait. Reinforced need for SBA, Call light use and bed/chair alarm. Pt expressing frustration with chair alarm, frequently removes independently. educated to safety. Pt ambulate into the bathroom, and then returned to bed. Reports TAYLOR, Ultram given per order. Comfort measures. Call light in reach. Bed alarm on.
[2019-05-08] MEDS: chlordiazePOXIDE 25 MG CAPSULE PO (20:50)
[2019-05-08] MEDS: TRAZODONE 50 MG TABLET PO (20:50)
[2019-05-09 00:23] VITALS: BP 134/64; PULSE 59; RESP 15; TEMP 36.5; O2SAT 98
[2019-05-09] MEDS: ACETAMINOPHEN 325 MG TABLET 975 MG PO ×2 (00:47→08:30)
[2019-05-09 06:39] LABS: Alanine Aminotransferase 24 IU/L (21-72); Albumin 3.3 g/dL (3.5-5.0); Albumin Globulin Ratio 1.1 (1.0-2.8); Alkaline Phosphatase 37 U/L (38-126); Aspartate Aminotransferase 18 IU/L (17-59); Bilirubin Total 0.3 mg/dL (0.2-1.3); Blood Urea Nitrogen 21 mg/dL (9-20); Calcium 9.3 mg/dL (8.4-10.2); Carbon Dioxide 30 mmol/L (22-32); Chloride 101 mmol/L (98-107); Estimated Glomerular Filt Rate > 60.0 mL/min (>60); Globulin 2.9 g/dL (1.7-4.1); Glucose 90 mg/dL (70-100); HEMOLYSIS < 15 (0-50); Potassium 3.8 mmol/L (3.4-5.1); Sodium 137 mmol/L (137-145); Total Protein 6.2 g/dL (6.3-8.2)
[2019-05-09 08:15] VITALS: BP 135/73; PULSE 57; RESP 19; TEMP 36.8; O2SAT 98
[2019-05-09 08:29] VITALS: BP 135/73; PULSE 57
[2019-05-09] MEDS: SERTRALINE 50 MG TABLET 100 MG PO (08:29)
[2019-05-09] MEDS: LISINOPRIL 20 MG TABLET 40 MG PO (08:29)
[2019-05-09] MEDS: hydroCHLOROthiazide 25 MG TABLET 50 MG PO (08:29)
[2019-05-09] MEDS: THIAMINE 100 MG TABLET PO (08:30)
[2019-05-09] MEDS: FOLIC ACID 1 MG TABLET PO (08:30)
[2019-05-09] MEDS: buPROPion XL 150 MG TAB PO (08:30)
[2019-05-09] MEDS: chlordiazePOXIDE 25 MG CAPSULE PO (08:30)
[2019-05-09] MEDS: BENZOCAINE/MENTHOL 1 LOZ PKT 1 EACH PO (08:31)
[2019-05-09] MEDS: TRAMADOL 50 MG TABLET PO ×2 (08:31→14:57)
[2019-05-09] MEDS: PANTOPRAZOLE 40 MG TABLET PO (08:33)
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
[2019-05-09 11:10] VITALS: BP 137/68; PULSE 65
[2019-05-09] MEDS: CARVEDILOL 3.125 MG TABLET PO (11:10)
[2019-05-09] MEDS: BACITRACIN 28 GM OINT 1 APPLIC TOP (12:24)
--- NOTE | 2019-05-09 13:46 | OT.IP.TRT ---
Current Diagnoses Alcohol use, unspecified with intoxication, unspecified (04/26/19) Occupational Therapy Treatment Note M2 OT-IP Current Condition Start: 05/07/19 13:11 Freq: Status: Active Protocol: Document 05/07/19 13:12 [facility] (Rec: 05/07/19 13:49 [facility] [id number]) Occupational Therapy Current Condition Current Condition Evaluation Date 05/07/19 Treatment Diagnosis Acute hypoxic respiratory failure, confusion Diagnosis Onset Date 04/26/19 Weight Bearing Status Weight Bearing Status Weight Bear as Tolerated M3 OT- IP Subjective and Pain Start: 05/07/19 13:11 Freq: Status: Active Protocol: Document 05/09/19 13:36 [facility] (Rec: 05/09/19 13:46 [facility] [id number]) OT- Subjective Occupational Therapy Visit Type Type Treatment Note Visit Start Time 13:11 Visit Stop Time 13:29 Total Visit Minutes 18 Occupational Therapy Visit Comments Patient Comments Pt agreeable to redo cognitive assessment and wanting therapist to copy information of drug and substance abuse center information that he found out from his insurance to give to the pillowcase turner. OT Pain Assessment Pain When Pain Assessed At Rest Pain Present Pain Present Denied Pain M4 OT- IP ADL's Start: 05/07/19 13:11 Freq: Status: Active Protocol: Document 05/08/19 10:39 [facility] (Rec: 05/08/19 10:54 [facility] [id number]) OT ADL-Bathing Comments OT Bathing Comments Per nursing aid pt able to do shower while sitting in the shower chair and only needing assist for set- up of soapy wash clothes. However when asked if nursing aid would have been comfortable not being present in the shower she states no due to impulsivity and decreased safety awareness. M5 OT- IP IADL's Start: 05/07/19 13:11 Freq: Status: Active Protocol: Document 05/07/19 13:12 [facility] (Rec: 05/07/19 13:49 [facility] [id number]) OT-Instrumental Activities of Daily Living Home Safety Awareness Ability to Problem Solve Emergency Able to Problem Solve Situations Home Safety Comments Pt able to correctly anwer home safety situation quesrtionnaire with 100% accuracy. Money Management Money Management Comments At this time, pt would benefit to having assist , see cognition section below for detail. Driving Driving Caregiver Provides Supervision M6 OT- IP Functional Cognition Start: 05/07/19 13:11 Freq: Status: Active Protocol: Document 05/09/19 13:36 [facility] (Rec: 05/09/19 13:46 [facility] [id number]) Cognitive Factors Limiting Selfcare Function Cognitive Ability Level of Alertness Alert Patient Orientation Name Attention Span Ability Capable of Focused Attention, Capable of Sustained Attention Ability to Follow Commands Able to Follow Multi-Step Commands Memory Description No Deficits Noted Safety Awareness Underestimates Need for Assistance Cognitive Tests SLUMS Pt scored 29/30 today, much imiproved with cognition, problem solving, and now activity being proactive regarding his care and making phone calls to his insurance company. Pt back to baseline for cognitive needs. M7 OT- IP Mobility and Balance Start: 05/07/19 13:11 Freq: Status: Active Protocol: Document 05/09/19 13:36 [facility] (Rec: 05/09/19 13:46 [facility] [id number]) OT-Transfer Assessment Sit to and From Stand Sit to and from Stand Independent Comments Mobility Comments Pt a bit impulsive but able to move independently in the room. OT- Balance Assessment Sitting Balance and Reactions Static Sitting Balance Ability Normal Dynamic Sitting Balance Ability Normal Standing Balance and Reactions Static Standing Balance Ability Normal Dynamic Standing Balance Ability Good M8 OT- IP Objective Assessments Start: 05/07/19 13:11 Freq: Status: Active Protocol: Document 05/07/19 13:12 [facility] (Rec: 05/07/19 13:49 [facility] [id number]) OT Gross Range of Motion Upper Extremity Range of Motion Assessment Within Functional Limits OT Strength Upper Extremity Strength Assessment Within Functional Limits OT-Muscle Tone Assessment Muscle Tone WNL Yes M9 OT- IP Assessment and Plan Start: 05/07/19 13:11 Freq: Status: Active Protocol: Document 05/09/19 13:36 [facility] (Rec: 05/09/19 13:46 [facility] [id number]) OT Summary Assessment and Plan Potential Rehabilitation Potential Good Analytic Complexity at Evaluation Low Summary Assessment Summary Pt now back to baseline for his ADl and cognitive needs. Discharge from OT services. Goals Days to Meet Goals 1 Frequency of Treatment Frequency Of Treatment Once a Day Discharge Recommendations OT Discharge Recommendations Home with Assistance Other Discharge Recommendations Pt may benefit from ETOH rehab
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
--- NOTE | 2019-05-09 17:33 | PC.NURSE ---
Addendum entered by Sophia Brunner R.N. 05/09/19 18:18: 1815 - Pt discharged via wheelchair with [employer] escort when Taxi arrived. Paperwork provided. Belongings with pt. Original Note: 1720 - Discharge instruction reviewed. Pt requesting that I fax his information to his, adjudicator. Educated to nursing roll and privacy laws. Pt requesting that Taxi stop at the bank or that pt is allowed to walk to the bank and return for taxi ride following completion of his banking. Pt notified that stops on [facility] ride are not allowed. If pt needs to make stops, he will need to pay for the taxi ride. Pt agreeable to have transportation to home. Contacted [facility] r/t pt follow up appointment. They will call pt back to schedule appointment for 1 week follow up. Also notified that pt has a RX review appt on 05/19. Added to pt discharge information. Message left for taxi co.
[2019-07-08 12:29] LABS: HCO3 ABG 20 mmol/L (22-26)
== END 2019-05-09 18:19 | disposition home or self-care (01) | DRG 130 ==
LOC: ED 16:20 → ICU 19:18
PROVIDERS: Internal Medicine; Nurse Practitioner Adult Health; Nurse Practitioner Family; Admitting Provider Surgery; Emergency Provider Emergency Medicine; PCP Nurse Practitioner; Visit Provider Internal Medicine
DX: J96.01 Acute respiratory failure with hypoxia (principal); Y90.8 Blood alcohol level of 240 mg/100 ml or more; J69.0 Pneumonitis due to inhalation of food and vomit; F10.231 Alcohol dependence with withdrawal delirium; F10.220 Alcohol dependence with intoxication, uncomplicated; N17.9 Acute kidney failure, unspecified; S09.90XA Unspecified injury of head, initial encounter; R40.2352 Coma scale, best motor response, localizes pain, at arrival to emergency department; R40.2142 Coma scale, eyes open, spontaneous, at arrival to emergency department; R40.2242 Coma scale, best verbal response, confused conversation, at arrival to emergency department; F41.9 Anxiety disorder, unspecified; F31.89 Other bipolar disorder; K70.10 Alcoholic hepatitis without ascites; F10.230 Alcohol dependence with withdrawal, uncomplicated; E87.6 Hypokalemia; E83.51 Hypocalcemia; E83.42 Hypomagnesemia; R00.1 Bradycardia, unspecified; D64.9 Anemia, unspecified; I10 Essential (primary) hypertension; V19.9XXA Pedal cyclist (driver) (passenger) injured in unspecified traffic accident, initial encounter
CPT/HCPCS: 36415; 36569; 36591; 36592; 36600; 70450; 70486; 71045; 72125; 73070; 73090; 73110; 76700; 80053; 80305; 80320; 81001; 82746; 82805; 82962; 83540; 83550; 83690; 83735; 83880; 84145; 84425; 84484; 85025; 85610; 85730; 86850; 86900; 86901; 87070; 87086; 87205; 87797; 92526; 92610; 93005; 93010; 93306; 94002; 94003; 94640; 94760; 94770; 94799; 96361; 96374; 97112; 97116; 97127; 97162; 97165; 97535; 99284; 99291; 99292; 90715; C9113; J0295; J0330; J0360; J0610; J1630; J1642; J1650; J1885; J1940; J2060; J2250; J2270; J2310; J2405; J2560; J2704; J3010; J3480

== ENCOUNTER 2019-05-12 23:33 | Emergency (ER) | payer OTHER, MEDICAID, SELFPAY ==
[2019-05-02 12:09] VITALS: BMI 37.7
[2019-05-03 12:27] VITALS: PULSE 61; RESP 16; O2SAT 97
[2019-05-12 23:33] VITALS: BP 111/69; PULSE 95; RESP 16; O2SAT 94; BMI 32.9
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
[2019-05-12] MEDS: KETOROLAC 60 MG/2 ML VIAL IM (23:53)
[2019-05-13 00:11] VITALS: BP 134/72; PULSE 92; RESP 16; O2SAT 97
== END 2019-05-13 00:13 | disposition home or self-care (01) ==
PROVIDERS: Emergency Provider Emergency Medicine; PCP Nurse Practitioner
DX: T07.XXXA Unspecified multiple injuries, initial encounter (principal); V18.0XXA Pedal cycle driver injured in noncollision transport accident in nontraffic accident, initial encounter
CPT/HCPCS: 96372; 99282; 99283; J1885

== ENCOUNTER 2019-05-13 16:02 | Emergency (ER) | payer OTHER, MEDICAID, SELFPAY ==
[2019-05-02 12:09] VITALS: BMI 37.7
[2019-05-03 12:27] VITALS: PULSE 61; RESP 16; O2SAT 97
[2019-05-13] VITALS (7 sets, daily range): BP systolic 134–157; BP diastolic 72–84; PULSE 67–78; RESP 13–24; TEMP 36.7; O2SAT 95–100; BMI 32.9
--- NOTE | 2019-05-13 16:22 | DI.RAD.S_ITS ---
PROCEDURE: XR CHEST 1V INDICATIONS: SHORTNESS OF BREATH TECHNIQUE: One view of the chest was acquired. COMPARISON: [facility], CR, XR CHEST 1V, 05/05/2019, 6:19. FINDINGS: Surgical changes and devices: None. Lungs and pleura: Mild patchy bilateral perihilar and left basilar opacity. No pleural effusions or pneumothorax. Mediastinum: Mediastinal contours appear normal. Heart size is enlarged. Bones and chest wall: No suspicious bony lesions. Overlying soft tissues appear unremarkable. IMPRESSION: Bilateral pneumonia. Follow up plain films of the chest are recommended to ensure resolution, and to exclude underlying or central malignancy. Dictated by: Ashanti Leung M.D. on 05/13/2019 at 18:48 Approved by: Ashanti Leung M.D. on 05/13/2019 at 18:49
[2019-05-13] MEDS: ALBUTEROL/IPRATROPIUM 3 ML AMPUL INH (16:24)
[2019-05-13 16:31] LABS: Add Manual Diff / Slide Review NO; Basophils Absolute Auto 100 /uL (0-100); Basophils Percent Auto 1.5 % (0-2); Eosinophils Absolute Auto 200 /uL (0-450); Eosinophils Percent Auto 4.1 % (2-4); Hematocrit 30.9 % (41-53); Hemoglobin 10.7 g/dL (13.5-17.5); Lymphocytes Absolute Auto 2700 /uL (1100-4500); Lymphocytes Percent Auto 46.1 % (25-40); Mean Corpuscular HGB Conc 34.7 % (30-36); Mean Corpuscular Hemoglobin 31.3 PG (26-34); Mean Corpuscular Volume 90.3 fL (80-100); Monocytes Absolute Auto 500 /uL (0-900); Monocytes Percent Auto 8.1 % (3-14); Neutrophils Absolute Auto 2400 /uL (1500-7000); Neutrophils Percent Auto 40.2 % (50-75); Platelet Count 519 X10^3/uL (150-400); Red Blood Cell Count 3.42 X10^6/uL (4.5-5.9); Red Cell Distribution Width 14.6 % (11.6-14.8); White Blood Cell Count 5.9 X10^3/uL (4.5-11.0)
--- NOTE | 2019-05-13 16:33 | ED_ITS ---
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 (Negative) Ethyl Alcohol 39 H ( - 10) mg/dL MDM Narrative Medical decision making narrative: Patient signed out to me by Dr. grant. X-ray does show bilateral pneumonia however no leukocytosis or fever. CURB65 score is 0. Patient states that he is ready to go. When asked if he is still going to harm himself he states that he has multiple pills at home and once he leaves it will not be my problem any longer. He clearly cannot contract for safety. He does not want to go to mental health facility. He is speaking clearly awake alert clinically sober rechecking alcohol level. CARON Mack to see and evaluate. At this time patient states that he has a doctor appointment at 10:00 a.m.. He has good support system and is being set up with some [facility] for 90 day placement also [facility]. Someone from 1 of these services will call him tomorrow. At this time patient is sober requesting to walk home. Discharge Plan Departure Patient Disposition: Home Clinical Impression: Suicidal ideation Alcohol intoxication Qualifiers: Complication of substance-induced condition: uncomplicated Qualified Code(s): F10.920 - Alcohol use, unspecified with intoxication, uncomplicated Pneumonia Qualifiers: Pneumonia type: due to unspecified organism Laterality: bilateral Lung location: unspecified part of lung Qualified Code(s): J18.9 - Pneumonia, unspecified organism Discharge Date/Time: 05/14/19 02:11 Instructions: Atypical Pneumonia, DI for Suicidal Ideation-Adult Activity Restrictions/Additional Instructions: *You have been diagnosed with pneumonia and suicidal ideation *What to do: Someone from [facility] and [facility] will call you tomorrow *Continue to take medications as directed Doxycycline 100 mg twice a day for 7 days-->[facility] [place] *Follow up with your primary care provider in 2-3 days *Return to ER if you should have suicidal thoughts, increasing shortness of breath, chest pain or any new, worsening or concerning symptoms Prescriptions: New doxycycline hyclate 100 mg capsule 100 mg PO BID Qty: 14 RF: 0 No Action hydrochlorothiazide 50 mg tablet 50 mg PO DAILY RF: 0 carvedilol 3.125 mg tablet 3.125 mg PO BID RF: 0 pantoprazole 40 mg tablet,delayed release (DR/EC) 40 mg PO DAILY RF: 0 lisinopril 40 mg tablet 40 mg PO DAILY RF: 0 naltrexone 50 mg tablet 50 mg PO DAILY RF: 0 bupropion HCl 150 mg tablet extended release 24 hr 150 mg PO DAILY RF: 0 trazodone 50 mg tablet 50 mg PO BEDTIME RF: 0 sertraline 100 mg tablet 100 mg PO DAILY RF: 0 acetaminophen 325 mg Tablet 975 mg PO Q8H PRN (Reason: Pain, Mild (1-3)) Qty: 30 RF: 0 thiamine HCl (vitamin B1) [Vitamin B-1] 100 mg Tablet 100 mg PO DAILY Qty: 30 RF: 0 folic acid 1 mg Tablet 1 mg PO DAILY Qty: 30 RF: 0 Referrals: Lana Rizzo ARNP [Primary Care Provider] -
[2019-05-13 16:48] LABS: Creatine Kinase 56 U/L (55-170); Ethanol (ETOH) 185 mg/dL
[2019-05-13 16:49] LABS: Alanine Aminotransferase 25 IU/L (21-72); Albumin 4.2 g/dL (3.5-5.0); Albumin Globulin Ratio 1.4 (1.0-2.8); Alkaline Phosphatase 49 U/L (38-126); Aspartate Aminotransferase 36 IU/L (17-59); BUN Creatinine Ratio 15.5 (6-22); Bilirubin Total 0.3 mg/dL (0.2-1.3); Blood Urea Nitrogen 17 mg/dL (9-20); Calcium 9.3 mg/dL (8.4-10.2); Carbon Dioxide 27 mmol/L (22-32); Chloride 105 mmol/L (98-107); Estimated Glomerular Filt Rate > 60.0 mL/min (>60); Glucose 88 mg/dL (70-100); HEMOLYSIS < 15 (0-50); Potassium 4.2 mmol/L (3.4-5.1); Sodium 144 mmol/L (137-145); Total Protein 7.2 g/dL (6.3-8.2)
[2019-05-13 16:52] LABS: B Type Natriuretic Peptide < 100 (<100)
[2019-05-13] MEDS: LORazepam 2 MG/ML INJ 1 MG IV ×2 (16:54→16:56)
[2019-05-13] MEDS: ONDANSETRON 4 MG/2 ML INJ IV (16:54)
[2019-05-13 16:56] LABS: Lactate (Lactic Acid) 1.7 mmol/L (0.7-2.1)
[2019-05-13 17:00] LABS: Troponin I < 0.012 ng/mL (0.01-0.034)
[2019-05-13 17:27] LABS: Thyroid Stimulating Hormone 0.08 uIU/mL (0.47-4.68)
--- NOTE | 2019-05-13 17:44 | PC.NURSE ---
pt contacted ems r/t can't breathe on arrival c/o i just want to and let me , difficult to redirect, smells of etoh, reports drank a fifth, denies attempt to harm self today, states just let me go and i'll kill myself and i'm going to run, placed in high vis room with 1:1 bedside observation, NSR on monitor, lungs clear/equal, denies pain or injury
[2019-05-13 18:00] LABS: Urine Amphetamines Negative (Negative); Urine Barbiturates Positive (Negative); Urine Benzodiazepines Positive (Negative); Urine Cocaine Negative (Negative); Urine MDMA Negative (Negative); Urine Methadone Negative (Negative); Urine Methamphetamines Negative (Negative); Urine Morphine/Opi cutoff 2000 Negative (Negative); Urine Oxycodone Negative (Negative); Urine Phencyclidine Negative (Negative); Urine Tetrahydrocannabinol Positive (Negative); Urine Tricyclic Antidepressant Negative (Negative)
[2019-05-13 19:12] LABS: Creatine Kinase 56 U/L (55-170)
[2019-05-13 19:25] LABS: Troponin I < 0.012 ng/mL (0.01-0.034)
--- NOTE | 2019-05-13 19:42 | PC.NURSE ---
1:1 observation continues, pt sleeping, rouses easily to voice, NSR on monitor
--- NOTE | 2019-05-13 21:41 | PC.NURSE ---
2134 medical clearance by MD Murray, pt alert, oriented x3, states let me leave so I can go kill myself and im going to take all the pills i have, pt moved to non-ligature room, remains in 1:1 bedside observation, ambulatory, taking po fluids
[2019-05-13 21:51] LABS: Ethanol (ETOH) 92 mg/dL
[2019-05-13] MEDS: ACETAMINOPHEN 325 MG TABLET 975 MG PO (23:42)
[2019-05-13] MEDS: IBUPROFEN 400 MG TABLET 800 MG PO (23:42)
[2019-05-13] MEDS: DOXYCYCLINE HYCLATE 100 MG TABLET PO (23:42)
[2019-05-13 23:46] LABS: Ethanol (ETOH) 39 mg/dL
[2019-05-14 00:23] VITALS: BP 174/77; PULSE 77; RESP 17; TEMP 36.6
--- NOTE | 2019-05-14 01:15 | PC.NURSE ---
CARON Moise arrived, in room speaking with pt.
== END 2019-05-14 02:11 | disposition home or self-care (01) ==
PROVIDERS: Emergency Medicine; Emergency Provider Emergency Medicine; Family Provider Nurse Practitioner; PCP Nurse Practitioner
DX: R45.851 Suicidal ideations (principal); F10.920 Alcohol use, unspecified with intoxication, uncomplicated; J18.9 Pneumonia, unspecified organism
CPT/HCPCS: 36415; 36591; 71045; 80053; 80305; 80320; 82550; 83605; 83880; 84443; 84484; 85025; 93005; 94640; 96374; 96375; 99284; 99285; J2060; J2405

== ENCOUNTER 2019-05-15 12:43 | Emergency (ER) | payer OTHER, MEDICAID, SELFPAY ==
[2019-05-02 12:09] VITALS: BMI 37.7
[2019-05-03 12:27] VITALS: PULSE 61; RESP 16; O2SAT 97
[2019-05-15 13:00] VITALS: BP 101/61; PULSE 82; RESP 20; TEMP 36.9; O2SAT 96; BMI 34.7
[2019-05-15 13:31] LABS: Bacteria Urine None Seen; RBC Urine None Seen (0-5/HPF); WBC Urine None Seen (0-5/HPF)
[2019-05-15 13:34] LABS: Add Manual Diff / Slide Review NO; Basophils Absolute Auto 0 /uL (0-100); Basophils Percent Auto 0.6 % (0-2); Eosinophils Absolute Auto 400 /uL (0-450); Eosinophils Percent Auto 4.5 % (2-4); Hematocrit 35.1 % (41-53); Lymphocytes Absolute Auto 3400 /uL (1100-4500); Lymphocytes Percent Auto 41.6 % (25-40); Mean Corpuscular HGB Conc 34.1 % (30-36); Mean Corpuscular Volume 90.8 fL (80-100); Monocytes Absolute Auto 600 /uL (0-900); Monocytes Percent Auto 7.6 % (3-14); Neutrophils Absolute Auto 3800 /uL (1500-7000); Neutrophils Percent Auto 45.7 % (50-75); Platelet Count 573 X10^3/uL (150-400); Red Blood Cell Count 3.86 X10^6/uL (4.5-5.9); Red Cell Distribution Width 14.9 % (11.6-14.8); White Blood Cell Count 8.2 X10^3/uL (4.5-11.0)
[2019-05-15 13:35] LABS: Appearance Urine UA CLEAR; Bilirubin Urine UA NEGATIVE (NEGATIVE); Color Urine UA YELLOW; Glucose Urine UA NEGATIVE (Negative); Ketones Urine UA NEGATIVE (NEGATIVE); Leukocyte Esterase Urine UA NEGATIVE (NEGATIVE); Nitrite Urine UA NEGATIVE (Negative); Occult Blood Urine UA NEGATIVE (Negative); Protein Urine UA NEGATIVE (Negative); Specific Gravity Urine UA <=1.005 (1.000-1.035); Urobilinogen Urine UA 0.2 E.U./dL (0.2)
--- NOTE | 2019-05-15 13:38 | ED_ITS ---
HPI - Psych <Carmen Salgado MD - Last Filed: 05/15/19 20:42> General Chief Complaint: Psychiatric Symptoms Stated Complaint: SI, ETOH Time Seen by Provider: 05/15/19 12:57 Source: patient and police Mode of arrival: other (Police) Limitations: no limitations History of Present Illness HPI Narrative: Patient comes emergency department with the police, after calling the place in asking them to shoot him. Patient has been drinking heavily since last night, and states his last drink of alcohol was 2 hours ago. He states that he feels that he has nothing to live for, and just wants to ?end it all.? He states that he does not have any supportive family and friends, and that he is getting kicked out of his current living situation as of May 27. He states he does not want to live, and he just wants to be let go so he can go kill himself. Patient denies any other complaints. Related Data Home Medications Medication Instructions Recorded Confirmed carvedilol 3.125 mg PO BID 04/07/19 05/15/19 hydrochlorothiazide 50 mg PO DAILY 04/07/19 05/15/19 lisinopril 40 mg PO DAILY 04/07/19 05/15/19 pantoprazole 40 mg PO DAILY 04/07/19 05/15/19 bupropion HCl 150 mg PO DAILY 04/30/19 05/15/19 naltrexone 50 mg PO DAILY 04/30/19 05/15/19 sertraline 100 mg PO DAILY 04/30/19 05/15/19 trazodone 50 mg PO BEDTIME 04/30/19 05/15/19 Previous Rx's Medication Instructions Recorded acetaminophen 975 mg PO Q8H PRN #30 tab 05/09/19 folic acid 1 mg PO DAILY #30 tab 05/09/19 thiamine HCl (vitamin B1) [Vitamin 100 mg PO DAILY #30 tab 05/09/19 B-1] doxycycline hyclate 100 mg PO BID #14 cap 05/14/19 Allergies Allergy/AdvReac Type Severity Reaction Status Date / Time No Known Drug Allergies Allergy Verified 05/13/19 16:07 Review of Systems <Carmen Salgado MD - Last Filed: 05/15/19 20:42> Constitutional Constitutional: Denies chills, Denies fatigue, Denies fever(s), Denies frequent falls, Denies lethargy and Denies weakness Eyes Eyes: Denies change in vision, Denies eye discharge, Denies irritation and Denies loss of vision ENT Ears, Nose, Mouth, and Throat: Denies change in voice, Denies dizziness, Denies neck pain, Denies sore throat and Denies throat swelling Cardiovascular Cardiovascular: Denies chest pain, Denies irregular heart rhythm, Denies lightheadedness, Denies palpitations, Denies dyspnea, Denies dyspnea on exertion and Denies orthopnea Respiratory Respiratory: Denies cough, Denies dyspnea, Denies dyspnea on exertion and Denies wheezing Gastrointestinal Gastrointestinal: Denies abdominal pain, Denies change in bowel habits, Denies diarrhea, Denies nausea and Denies vomiting Genitourinary Genitourinary: Denies hematuria, Denies flank pain, Denies urinary incontinence and Denies urinary urgency Musculoskeletal Musculoskeletal: Denies back pain, Denies muscle weakness, Denies neck pain, Denies numbness and Denies tingling Integumentary/Breasts Skin/Breast: Denies pruritus, Denies erythema, Denies rash and Denies wounds Neurologic Neurologic: Denies behavioral changes, Denies confusion, Denies dizziness, Denies frequent falls, Denies loss of vision, Denies numbness, Denies tingling and Denies weakness Psychiatric Psychiatric: Denies anxiety, Denies behavioral changes, Denies confusion, Reports depression, Denies homicidal ideation and Reports suicidal ideation Endocrine Endocrine: Denies fatigue, Denies flushing and Denies palpitations Hematologic/Lymphatic Hematologic/Lymphatic: Denies easy bruising Allergic/Immunologic Allergic/Immunologic: Denies urticaria, Denies throat swelling and Denies wheezing PFSH <Carmen Salgado MD - Last Filed: 05/15/19 20:42> Medical History Alcoholism (Acute) Anxiety (Acute) Bipolar 1 disorder (Acute) Depression (Acute) Hypertension (Acute) Surgical History No pertinent past surgical history (Acute) Social History household members: other Smoking Status: Never smoker alcohol intake: current Social History household members: other Smoking Status: Never smoker alcohol intake: current Exam <Carmen Salgado MD - Last Filed: 05/15/19 20:42> Initial Vital Signs Initial Vital Signs: Vital Signs Temperature 98.5 F 05/15/19 13:00 Pulse Rate 82 05/15/19 13:00 Respiratory Rate 20 05/15/19 13:00 Blood Pressure 101/61 05/15/19 13:00 Pulse Oximetry 96 05/15/19 13:00 Const General: well developed Nutritional Appearance: well nourished Orientation: alert, awake, oriented x3 and not confused Other: Patient smells of alcohol, and is disheveled. HENMT Head: normocephalic and other (Healing wound right forehead) Ears: external ears normal Nose: external nose normal and No nasal discharge Face and sinus: face symmetric and No dry mucous membranes Mouth: oral mucosae normal and moist mucous membranes Teeth and gingiva: dentition normal Eyes General: appearance normal, both eyes and all related structures Eyelids: eyelids normal Conjunctivae: conjunctivae normal Sclera: sclerae normal Pupils: PERRL EOM: EOM intact bilaterally Neck Neck: normal visual inspection, trachea midline, No lymphadenopathy, No midline deformity and No JVD Lymphatic: No lymphedema Chest Chest: normal inspection of the chest Resp Effort & Inspection: normal respiratory effort, able to speak in complete sentences, no respiratory distress and no use of accessory muscles Auscultation: clear to auscultation bilaterally, no rales, no rhonchi and no wheezes Cardio Rate: regular rate Rhythm: regular rhythm Heart Sounds: no click, no gallops, no murmurs and no rubs Pulses: normal peripheral pulses GI Inspection: non-distended Palpation: soft, no hepatosplenomegaly, No guarding, No pulsatile mass and No tender Auscultation: normal bowel sounds Back/Spine/Pelvis Back: No CVA tenderness Cervical Spine: cervical ROM normal and No pain with cervical ROM Thoracic/Lumbar Spine: thoracic and lumbar spine normal to inspection Skin General: no rashes or lesions noted, No jaundice and No petechiae Neuro General: alert, oriented x3, gait normal and no focal motor deficits Speech: speech normal Extrem General: full ROM, no clubbing, cyanosis or edema, no pedal edema and no calf tenderness Psych Appearance: disheveled Mental Status: other (Appears moderately intoxicated.) Speech and Movement: agitated Mood: irritable mood and other (Appears moderately intoxicated.) Attitude: cooperative Thought Content: normal and suicidality Judgment: judgment good <Alison Murray DO - Last Filed: 05/16/19 07:30> Initial Vital Signs Initial Vital Signs: Vital Signs Temperature 98.5 F 05/15/19 13:00 Pulse Rate 82 05/15/19 13:00 Respiratory Rate 20 05/15/19 13:00 Blood Pressure 101/61 05/15/19 13:00 Pulse Oximetry 96 05/15/19 13:00 Course <Carmen Salgado MD - Last Filed: 05/15/19 20:42> Course Additional Information: Patient was held involuntarily in the emergency depart ment. Lab work was done in anticipation of possible mental health evaluation the patient when sober. Ethanol level was found to be 281. Patient was kept in the emergency department throughout my shift, and was still metabolize Ng at change of shift. He was signed out to Dr. Murray, pending sobriety and re- evaluation. Orders Ordered: Discontinued Medications Acetaminophen (Tylenol) 650 mg PO NOW ONE Stop: 05/15/19 19:21 Last Admin: 05/15/19 19:25 Dose: 650 mg Documented by: BTONER Ibuprofen (Advil) 400 mg PO NOW ONE Stop: 05/15/19 19:21 Last Admin: 05/15/19 19:24 Dose: 400 mg Documented by: BTONER Vital Signs Vital signs: Vital Signs - 8 hr 05/15/19 17:43 Pulse Rate 83 Respiratory Rate 19 Blood Pressure [Left Arm] 119/67 Pulse Oximetry 96 <Alison Murray DO - Last Filed: 05/16/19 07:30> Orders Ordered: Discontinued Medications Acetaminophen (Tylenol) 650 mg PO NOW ONE Stop: 05/15/19 19:21 Last Admin: 05/15/19 19:25 Dose: 650 mg Documented by: GONSALOR Ibuprofen (Advil) 400 mg PO NOW ONE Stop: 05/15/19 19:21 Last Admin: 05/15/19 19:24 Dose: 400 mg Documented by: BTONER Vital Signs Vital signs: Vital Signs - 8 hr 05/15/19 17:43 Pulse Rate 83 Respiratory Rate 19 Blood Pressure [Left Arm] 119/67 Pulse Oximetry 96 MDM - Psych <Carmen Salgado MD - Last Filed: 05/15/19 20:42> Medical Records Attestation: I reviewed the patient's medical records. Lab Data Attestation: I reviewed the patient's lab results. Result diagrams: 05/15/19 13:26 05/15/19 13:26 Labs: Lab Results 05/15/19 05/15/19 05/15/19 Range/Units 13:00 13:26 13:26 WBC 8.2 (4.5-11.0) X10^3/uL RBC 3.86 L (4.5-5.9) X10^6/uL Hgb 12.0 L (13.5-17.5) g/dL Hct 35.1 L (41-53) % MCV 90.8 (80-100) fL MCH 31.0 (26-34) PG MCHC 34.1 (30-36) % RDW 14.9 H (11.6-14.8) % Plt Count 573 H (150-400) X10^3/uL Neut % (Auto) 45.7 L (50-75) % Lymph % (Auto) 41.6 H (25-40) % Oter[place] % (Auto) 7.6 (3-14) % Eos % (Auto) 4.5 H (2-4) % Baso % (Auto) 0.6 (0-2) % Neut # (Auto) 3800 (7873-8134) /uL Lymph # (Auto) 3400 (7918-2197) /uL [place] # (Auto) 600 (0-900) /uL Eos # (Auto) 400 (0-450) /uL Baso # (Auto) 0 (0-100) /uL Sodium 144 (137-145) mmol/L Potassium 4.3 (3.4-5.1) mmol/L Chloride 106 (98-107) mmol/L Carbon Dioxide 23 (22-32) mmol/L BUN 17 (9-20) mg/dL Creatinine 1.00 (0.66-1.25) mg/dL Estimated GFR > 60.0 (>60) mL/min BUN/Creatinine Ratio 17.0 (6-22) Glucose 102 H (70-100) mg/dL Calcium 9.5 (8.4-10.2) mg/dL Total Bilirubin 0.4 (0.2-1.3) mg/dL AST 31 (17-59) IU/L ALT 28 (21-72) IU/L Alkaline Phosphatase 78 (38-126) U/L Total Protein 7.6 (6.3-8.2) g/dL Albumin 4.4 (3.5-5.0) g/dL Globulin 3.2 (1.7-4.1) g/dL Albumin/Globulin Ratio 1.4 (1.0-2.8) TSH (0.47-4.68) uIU/mL Free T4 (0.78-2.19) ng/dL Urine Color Urine Appearance Urine pH (4.5-8.0) Ur Specific [place] (1.000-1.035) Urine Protein (Negative) Urine Glucose (UA) (Negative) g/dL Urine Ketones (NEGATIVE) Urine Occult Blood (Negative) Urine Nitrate (Negative) Urine Bilirubin (NEGATIVE) Urine Urobilinogen (0.2) E.U./dL Ur Leukocyte Esterase (NEGATIVE) Urine RBC (0-5/HPF) Urine WBC (0-5/HPF) Urine Bacteria (None) Ur Culture Indicated? Micro UA Comment Salicylates < 1.0 (<20) mg/dL Urine Opiates Screen Negative (Negative) Ur Oxycodone Screen Negative (Negative) Urine Methadone Screen Negative (Negative) Acetaminophen < 10 L (10-30) ug/mL Ur Barbiturates Screen Positive H (Negative) U Tricyclic Antidepress Negative (Negative) Ur Phencyclidine Scrn Negative (Negative) Ur Amphetamines Screen Negative (Negative) U Methamphetamines Scrn Negative (Negative) Ur MDMA Scrn (Ecstasy) Negative (Negative) U Benzodiazepines Scrn Positive H (Negative) Urine Cocaine Screen Negative (Negative) U Marijuana (THC) Screen Positive H (Negative) Ethyl Alcohol 281 H ( - 10) mg/dL 05/15/19 05/15/19 05/15/19 Range/Units 13:26 13:26 21:00 WBC (4.5-11.0) X10^3/uL RBC (4.5-5.9) X10^6/uL Hgb (13.5-17.5) g/dL Hct (41-53) % MCV (80-100) fL MCH (26-34) PG MCHC (30-36) % RDW (11.6-14.8) % Plt Count (150-400) X10^3/uL Neut % (Auto) (50-75) % Lymph % (Auto) (25-40) % [place] % (Auto) (3-14) % Eos % (Auto) (2-4) % Baso % (Auto) (0-2) % Neut # (Auto) (6449-4001) /uL Lymph # (Auto) (2982-7963) /uL [place] # (Auto) (0-900) /uL Eos # (Auto) (0-450) /uL Baso # (Auto) (0-100) /uL Sodium (137-145) mmol/L Potassium (3.4-5.1) mmol/L Chloride (98-107) mmol/L Carbon Dioxide (22-32) mmol/L BUN (9-20) mg/dL Creatinine (0.66-1.25) mg/dL Estimated GFR (>60) mL/min BUN/Creatinine Ratio (6-22) Glucose (70-100) mg/dL Calcium (8.4-10.2) mg/dL Total Bilirubin (0.2-1.3) mg/dL AST (17-59) IU/L ALT (21-72) IU/L Alkaline Phosphatase (38-126) U/L Total Protein (6.3-8.2) g/dL Albumin (3.5-5.0) g/dL Globulin (1.7-4.1) g/dL Albumin/Globulin Ratio (1.0-2.8) TSH 0.33 L D (0.47-4.68) uIU/mL Free T4 1.11 (0.78-2.19) ng/dL Urine Color Yellow Urine Appearance Clear Urine pH 5.0 (4.5-8.0) Ur Specific [place] <=1.005 (1.000-1.035) Urine Protein Negative (Negative) Urine Glucose (UA) Negative (Negative) g/dL Urine Ketones Negative (NEGATIVE) Urine Occult Blood Negative (Negative) Urine Nitrate Negative (Negative) Urine Bilirubin Negative (NEGATIVE) Urine Urobilinogen 0.2 (0.2) E.U./dL Ur Leukocyte Esterase Negative (NEGATIVE) Urine RBC None seen (0-5/HPF) Urine WBC None seen (0-5/HPF) Urine Bacteria None seen (None) Ur Culture Indicated? Cult not indicated Micro UA Comment Microscopic normal Salicylates (<20) mg/dL Urine Opiates Screen (Negative) Ur Oxycodone Screen (Negative) Urine Methadone Screen (Negative) Acetaminophen (10-30) ug/mL Ur Barbiturates Screen (Negative) U Tricyclic Antidepress (Negative) Ur Phencyclidine Scrn (Negative) Ur Amphetamines Screen (Negative) U Methamphetamines Scrn (Negative) Ur MDMA Scrn (Ecstasy) (Negative) U Benzodiazepines Scrn (Negative) Urine Cocaine Screen (Negative) U Marijuana (THC) Screen (Negative) Ethyl Alcohol 107 H ( - 10) mg/dL <Alison Murray, DO - Last Filed: 05/16/19 07:30> Lab Data Labs: Lab Results 05/15/19 05/15/19 05/15/19 Range/Units 13:00 13:26 13:26 WBC 8.2 (4.5-11.0) X10^3/uL RBC 3.86 L (4.5-5.9) X10^6/uL Hgb 12.0 L (13.5-17.5) g/dL Hct 35.1 L (41-53) % MCV 90.8 (80-100) fL MCH 31.0 (26-34) PG MCHC 34.1 (30-36) % RDW 14.9 H (11.6-14.8) % Plt Count 573 H (150-400) X10^3/uL Neut % (Auto) 45.7 L (50-75) % Lymph % (Auto) 41.6 H (25-40) % [place] % (Auto) 7.6 (3-14) % Eos % (Auto) 4.5 H (2-4) % Baso % (Auto) 0.6 (0-2) % Neut # (Auto) 3800 (6362-0087) /uL Lymph # (Auto) 3400 (4660-2388) /uL [place] # (Auto) 600 (0-900) /uL Eos # (Auto) 400 (0-450) /uL Baso # (Auto) 0 (0-100) /uL Sodium 144 (137-145) mmol/L Potassium 4.3 (3.4-5.1) mmol/L Chloride 106 (98-107) mmol/L Carbon Dioxide 23 (22-32) mmol/L BUN 17 (9-20) mg/dL Creatinine 1.00 (0.66-1.25) mg/dL Estimated GFR > 60.0 (>60) mL/min BUN/Creatinine Ratio 17.0 (6-22) Glucose 102 H (70-100) mg/dL Calcium 9.5 (8.4-10.2) mg/dL Total Bilirubin 0.4 (0.2-1.3) mg/dL AST 31 (17-59) IU/L ALT 28 (21-72) IU/L Alkaline Phosphatase 78 (38-126) U/L Total Protein 7.6 (6.3-8.2) g/dL Albumin 4.4 (3.5-5.0) g/dL Globulin 3.2 (1.7-4.1) g/dL Albumin/Globulin Ratio 1.4 (1.0-2.8) TSH (0.47-4.68) uIU/mL Free T4 (0.78-2.19) ng/dL Urine Color Urine Appearance Urine pH (4.5-8.0) Ur Specific [place] (1.000-1.035) Urine Protein (Negative) Urine Glucose (UA) (Negative) g/dL Urine Ketones (NEGATIVE) Urine Occult Blood (Negative) Urine Nitrate (Negative) Urine Bilirubin (NEGATIVE) Urine Urobilinogen (0.2) E.U./dL Ur Leukocyte Esterase (NEGATIVE) Urine RBC (0-5/HPF) Urine WBC (0-5/HPF) Urine Bacteria (None) Ur Culture Indicated? Micro UA Comment Salicylates < 1.0 (<20) mg/dL Urine Opiates Screen Negative (Negative) Ur Oxycodone Screen Negative (Negative) Urine Methadone Screen Negative (Negative) Acetaminophen < 10 L (10-30) ug/mL Ur Barbiturates Screen Positive H (Negative) U Tricyclic Antidepress Negative (Negative) Ur Phencyclidine Scrn Negative (Negative) Ur Amphetamines Screen Negative (Negative) U Methamphetamines Scrn Negative (Negative) Ur MDMA Scrn (Ecstasy) Negative (Negative) U Benzodiazepines Scrn Positive H (Negative) Urine Cocaine Screen Negative (Negative) U Marijuana (THC) Screen Positive H (Negative) Ethyl Alcohol 281 H ( - 10) mg/dL 05/15/19 05/15/19 05/15/19 Range/Units 13:26 13:26 21:00 WBC (4.5-11.0) X10^3/uL RBC (4.5-5.9) X10^6/uL Hgb (13.5-17.5) g/dL Hct (41-53) % MCV (80-100) fL MCH (26-34) PG MCHC (30-36) % RDW (11.6-14.8) % Plt Count (150-400) X10^3/uL Neut % (Auto) (50-75) % Lymph % (Auto) (25-40) % [place] % (Auto) (3-14) % Eos % (Auto) (2-4) % Baso % (Auto) (0-2) % Neut # (Auto) (3036-0865) /uL Lymph # (Auto) (8481-6536) /uL [place] # (Auto) (0-900) /uL Eos # (Auto) (0-450) /uL Baso # (Auto) (0-100) /uL Sodium (137-145) mmol/L Potassium (3.4-5.1) mmol/L Chloride (98-107) mmol/L Carbon Dioxide (22-32) mmol/L BUN (9-20) mg/dL Creatinine (0.66-1.25) mg/dL Estimated GFR (>60) mL/min BUN/Creatinine Ratio (6-22) Glucose (70-100) mg/dL Calcium (8.4-10.2) mg/dL Total Bilirubin (0.2-1.3) mg/dL AST (17-59) IU/L ALT (21-72) IU/L Alkaline Phosphatase (38-126) U/L Total Protein (6.3-8.2) g/dL Albumin (3.5-5.0) g/dL Globulin (1.7-4.1) g/dL Albumin/Globulin Ratio (1.0-2.8) TSH 0.33 L D (0.47-4.68) uIU/mL Free T4 1.11 (0.78-2.19) ng/dL Urine Color Yellow Urine Appearance Clear Urine pH 5.0 (4.5-8.0) Ur Specific [place] <=1.005 (1.000-1.035) Urine Protein Negative (Negative) Urine Glucose (UA) Negative (Negative) g/dL Urine Ketones Negative (NEGATIVE) Urine Occult Blood Negative (Negative) Urine Nitrate Negative (Negative) Urine Bilirubin Negative (NEGATIVE) Urine Urobilinogen 0.2 (0.2) E.U./dL Ur Leukocyte Esterase Negative (NEGATIVE) Urine RBC None seen (0-5/HPF) Urine WBC None seen (0-5/HPF) Urine Bacteria None seen (None) Ur Culture Indicated? Cult not indicated Micro UA Comment Microscopic normal Salicylates (<20) mg/dL Urine Opiates Screen (Negative) Ur Oxycodone Screen (Negative) Urine Methadone Screen (Negative) Acetaminophen (10-30) ug/mL Ur Barbiturates Screen (Negative) U Tricyclic Antidepress (Negative) Ur Phencyclidine Scrn (Negative) Ur Amphetamines Screen (Negative) U Methamphetamines Scrn (Negative) Ur MDMA Scrn (Ecstasy) (Negative) U Benzodiazepines Scrn (Negative) Urine Cocaine Screen (Negative) U Marijuana (THC) Screen (Negative) Ethyl Alcohol 107 H ( - 10) mg/dL MDM Narrative Medical decision making narrative: Received sign-out from Dr. Salgado. I have done independent exam seen evaluated patient myself. He is sober at this time. He is very nice and quite. Talking about cooking. He is trying to get into a 90 day detox it sounds like that is in the works. He has contacts at [employer]. He has a plan to put his stuff in his son's place and not burn in. He thinks that eventually after the 90 day cruise he will likely end up back in [place] to live with his sister so they can help each other out. He is hopeful that his disability will be a peeled. At this time he denies any suicidal ideations. He states that he does does not want to kill himself and can contract for safety at this time. [employer] called. The patient is clinically sober, free from distracting injury, appears to have intact insight, judgment and reason. Does not meet criteria for involuntary hospitalization. Patient has the capacity to make decisions. Discharge Plan Departure Patient Disposition: Home Clinical Impression: Alcohol intoxication Qualifiers: Complication of substance-induced condition: uncomplicated Qualified Code(s): F10.920 - Alcohol use, unspecified with intoxication, uncomplicated Discharge Date/Time: 05/15/19 21:20 Activity Restrictions/Additional Instructions: *You have been diagnosed with alcohol intoxication *What to do: If you are feeling suicidal or having suicidal thoughts: Call: Suicide Hotline: Visit: www.[employer] Text: 452007 *Continue to take medications as directed *Follow up with your primary care provider in 2-3 days *Return to ER if you should have suicidal ideations or any new, worsening or concerning symptoms Prescriptions: No Action hydrochlorothiazide 50 mg tablet 50 mg PO DAILY RF: 0 carvedilol 3.125 mg tablet 3.125 mg PO BID RF: 0 pantoprazole 40 mg tablet,delayed release (DR/EC) 40 mg PO DAILY RF: 0 lisinopril 40 mg tablet 40 mg PO DAILY RF: 0 naltrexone 50 mg tablet 50 mg PO DAILY RF: 0 bupropion HCl 150 mg tablet extended release 24 hr 150 mg PO DAILY RF: 0 trazodone 50 mg tablet 50 mg PO BEDTIME RF: 0 sertraline 100 mg tablet 100 mg PO DAILY RF: 0 acetaminophen 325 mg Tablet 975 mg PO Q8H PRN (Reason: Pain, Mild (1-3)) Qty: 30 RF: 0 thiamine HCl (vitamin B1) [Vitamin B-1] 100 mg Tablet 100 mg PO DAILY Qty: 30 RF: 0 folic acid 1 mg Tablet 1 mg PO DAILY Qty: 30 RF: 0 doxycycline hyclate 100 mg capsule 100 mg PO BID Qty: 14 RF: 0 Referrals: Lana Rizzo ARNP [Primary Care Provider] -
[2019-05-15 13:42] LABS: Culture Indicated Urine Cult Not Indicated; Urine Comments Microscopic Normal
--- NOTE | 2019-05-15 13:45 | PC.NURSE ---
pt saying rachel greenberg pt states i can't breathe checked pt vitals, VSS. pt said your brother's a yari
[2019-05-15 13:46] LABS: Acetaminophen < 10 ug/mL (10-30); Alanine Aminotransferase 28 IU/L (21-72); Albumin 4.4 g/dL (3.5-5.0); Albumin Globulin Ratio 1.4 (1.0-2.8); Alkaline Phosphatase 78 U/L (38-126); Aspartate Aminotransferase 31 IU/L (17-59); Bilirubin Total 0.4 mg/dL (0.2-1.3); Blood Urea Nitrogen 17 mg/dL (9-20); Calcium 9.5 mg/dL (8.4-10.2); Carbon Dioxide 23 mmol/L (22-32); Chloride 106 mmol/L (98-107); Estimated Glomerular Filt Rate > 60.0 mL/min (>60); Ethanol (ETOH) 281 mg/dL; Globulin 3.2 g/dL (1.7-4.1); Glucose 102 mg/dL (70-100); HEMOLYSIS 28 (0-50); Potassium 4.3 mmol/L (3.4-5.1); Salicylate < 1.0 mg/dL (<20); Sodium 144 mmol/L (137-145); Total Protein 7.6 g/dL (6.3-8.2)
[2019-05-15 13:48] VITALS: PULSE 82; RESP 18; O2SAT 97
[2019-05-15 14:04] LABS: Urine Amphetamines Negative (Negative); Urine Barbiturates Positive (Negative); Urine Benzodiazepines Positive (Negative); Urine Cocaine Negative (Negative); Urine MDMA Negative (Negative); Urine Methadone Negative (Negative); Urine Methamphetamines Negative (Negative); Urine Morphine/Opi cutoff 2000 Negative (Negative); Urine Oxycodone Negative (Negative); Urine Phencyclidine Negative (Negative); Urine Tetrahydrocannabinol Positive (Negative); Urine Tricyclic Antidepressant Negative (Negative)
[2019-05-15 14:08] LABS: Free T4, Direct Thyroxine 1.11 ng/dL (0.78-2.19)
[2019-05-15 14:22] LABS: Thyroid Stimulating Hormone 0.33 uIU/mL (0.47-4.68)
--- NOTE | 2019-05-15 14:34 | PC.NURSE ---
pt asked if the restraints could be removed, i said not at this time. pt yelled i'm going to blow this place up
--- NOTE | 2019-05-15 15:01 | PC.NURSE ---
pt states get me the Fuck out of here [place]
--- NOTE | 2019-05-15 15:37 | PC.NURSE ---
pt restraint removed from left hand and placed on left ankle to allow for pt to have a snack.
--- NOTE | 2019-05-15 15:42 | PC.NURSE ---
changed restraint from left wrist to left ankle, to eat. pt done eating and requested to left the restraint on the ankle. pt has restraint on left ankle and rt wrist.
--- NOTE | 2019-05-15 15:57 | PC.NURSE ---
serving pt a sandwich and applesauce and said dont be a nigger i stepped back a few feet and i told pt to not speak to me with that language. pt stopped talking and i served the meal.
--- NOTE | 2019-05-15 16:04 | PC.NURSE ---
pt resting with eyes closed.
--- NOTE | 2019-05-15 16:57 | PC.NURSE ---
Pt wanting restraints off because he cant turn over while sleeping. I told pt that I would let dr magana know. Pt then said that he wanted to talk to her right now, and that he wants her daughters phone number
--- NOTE | 2019-05-15 17:05 | PC.NURSE ---
pt continuing to yell for the doctor. Dr Salgado is aware that the pt wants to speak to her.
--- NOTE | 2019-05-15 17:12 | PC.NURSE ---
Pt yelling take this fucking thing off. When told that the dr has to say it's ok to take off the restraints he then asked to use your little beeper, and that if the restraints weren't taken off that he would flip the bed over. He then said you think I'm joking but im going to flip the fucking thing over.
--- NOTE | 2019-05-15 17:25 | PC.NURSE ---
Pt's restraints were removed per JULIANNE Lopez. Pt is aware and agreeable when told that if he tries to hurt himself on the gurney, or if he attempts to leave rm 13 that the police would be called.
--- NOTE | 2019-05-15 17:36 | PC.NURSE ---
pt rocking back and forth on the gurney. Keeps asking to call his son
[2019-05-15 17:43] VITALS: BP 119/67; PULSE 83; RESP 19; O2SAT 96
--- NOTE | 2019-05-15 17:47 | PC.NURSE ---
pt given food, drink, and lights lowered
--- NOTE | 2019-05-15 18:13 | PC.NURSE ---
pt requesting to talk to his counselor at [facility], saying that they were working on a bed for him. I called the hotline and left a message.
--- NOTE | 2019-05-15 18:51 | PC.NURSE ---
pt laying calmly in bed. lights are off
--- NOTE | 2019-05-15 19:02 | PC.NURSE ---
pt cooperative when walking to the phone to talk to son.
--- NOTE | 2019-05-15 19:05 | PC.NURSE ---
pt talking to son on the phone
--- NOTE | 2019-05-15 19:13 | PC.NURSE ---
pt complaining of extreme pain in feet and shoulders. RN aware and asking dr for pain med. Pt states over and over I just want this to end
[2019-05-15] MEDS: IBUPROFEN 400 MG TABLET PO (19:24)
[2019-05-15] MEDS: ACETAMINOPHEN 325 MG TABLET 650 MG PO (19:25)
--- NOTE | 2019-05-15 19:59 | PC.NURSE ---
pt requesting to take a walk around the department. With RN's approval I walked with the pt down to the bathroom and back. Pt was calm and agreeable to every direction. Pt stated that he felt much better.
--- NOTE | 2019-05-15 21:08 | PC.NURSE ---
Dr Murray in room with pt
[2019-05-15 21:18] LABS: Ethanol (ETOH) 107 mg/dL
--- NOTE | 2019-05-16 12:22 | PC.NURSE ---
late note, 05/15/19 1750 pt request restraints to come off. we had a discussion about safety, his and staff. pt agreed to not do self harm (ie banging head on gill or hitting wall with fists). will notify provider, and plan to release restraints.
== END 2019-05-15 21:20 | disposition home or self-care (01) ==
PROVIDERS: Emergency Medicine; Emergency Provider Emergency Medicine; Family Provider Nurse Practitioner; PCP Nurse Practitioner
DX: F10.920 Alcohol use, unspecified with intoxication, uncomplicated (principal); R45.851 Suicidal ideations
CPT/HCPCS: 36415; 80053; 80305; 80320; 80329; 81001; 84439; 84443; 85025; 99285; G0480

== ENCOUNTER 2019-05-16 02:45 | Emergency (ER) | payer OTHER, MEDICAID, SELFPAY ==
[2019-05-02 12:09] VITALS: BMI 37.7
[2019-05-03 12:27] VITALS: PULSE 61; RESP 16; O2SAT 97
[2019-05-16] VITALS (8 sets, daily range): BP systolic 107–170; BP diastolic 60–91; PULSE 74–92; RESP 15–21; TEMP 36.6–37.2; O2SAT 94–100; BMI 15.8
--- NOTE | 2019-05-16 02:51 | DI.RAD.S_ITS ---
PROCEDURE: XR CHEST 1V INDICATIONS: Shortness of breath TECHNIQUE: One view of the chest was acquired. COMPARISON: [facility], CR, XR CHEST 1V, 05/13/2019, 18:33. FINDINGS: Surgical changes and devices: None. Lungs and pleura: Lung volumes are low. Lungs are clear. No pleural effusions or pneumothorax. Mediastinum: Mediastinal central vasculature is slightly congested. The heart is moderately enlarged, stable.. Bones and chest wall: No suspicious bony lesions. Overlying soft tissues appear unremarkable. IMPRESSION: Mild central venous congestion, similar compared to prior. Stable, moderate cardiomegaly. Dictated by: Beth Meneses M.D. on 05/16/2019 at 8:46 Approved by: Beth Meneses M.D. on 05/16/2019 at 8:47
--- NOTE | 2019-05-16 02:52 | ED.SOB ---
HPI - SOB/Dyspnea <Alison Murray DO - Last Filed: 05/16/19 07:22> General Chief Complaint: Chest Pain Stated Complaint: Difficult breathing Time Seen by Provider: 05/16/19 02:50 Source: patient and EMS Mode of arrival: EMS Limitations: no limitations History of Present Illness HPI Narrative: Patient is a 59-year-old male presenting with shortness of breath and suicidal ideations. He was discharged from the emergency department a few hours ago for suicidal ideations but at that time contracted for safety. He went home and had more alcohol to drink and then started feeling short of breath calling 911. He was previously here for shortness of breath and similar thoughts 2 days ago. DC are was called he was not detainable at that time. Patient now stating that he just wants us to kill him. He asked EMS to kill him myself and nursing staff as well. He just wants to . He has alcohol on breath again. He denies any chest pain. But does feel like he is having some difficulty breathing. MD Complaint: shortness of breath Onset (ago): hour(s) Related Data Home Medications Medication Instructions Recorded Confirmed carvedilol 3.125 mg PO BID 04/07/19 05/16/19 hydrochlorothiazide 50 mg PO DAILY 04/07/19 05/16/19 lisinopril 40 mg PO DAILY 04/07/19 05/16/19 pantoprazole 40 mg PO DAILY 04/07/19 05/16/19 bupropion HCl 150 mg PO DAILY 04/30/19 05/16/19 naltrexone 50 mg PO DAILY 04/30/19 05/16/19 sertraline 100 mg PO DAILY 04/30/19 05/16/19 trazodone 50 mg PO BEDTIME 04/30/19 05/16/19 Previous Rx's Medication Instructions Recorded acetaminophen 975 mg PO Q8H PRN #30 tab 05/09/19 folic acid 1 mg PO DAILY #30 tab 05/09/19 thiamine HCl (vitamin B1) [Vitamin 100 mg PO DAILY #30 tab 05/09/19 B-1] doxycycline hyclate 100 mg PO BID #14 cap 05/14/19 Allergies Allergy/AdvReac Type Severity Reaction Status Date / Time No Known Drug Allergies Allergy Verified 05/13/19 16:07 Review of Systems <Alison Murray DO - Last Filed: 05/16/19 07:22> Review of Systems ROS Unobtainable: All systems reviewed & are unremarkable except as noted in HPI and below Constitutional Constitutional: Denies chills, Denies fever(s), Denies lethargy and Denies weakness Eyes Eyes: Denies change in vision, Denies eye discharge, Denies irritation and Denies loss of vision Cardiovascular Cardiovascular: Denies chest pain, Reports dyspnea and Denies orthopnea Respiratory Respiratory: Reports as per HPI, Denies cough, Reports dyspnea and Denies wheezing Gastrointestinal Gastrointestinal: Denies abdominal pain, Denies change in bowel habits, Denies diarrhea, Denies nausea and Denies vomiting Musculoskeletal Musculoskeletal: Denies back pain, Denies muscle weakness, Denies numbness and Denies tingling Integumentary/Breasts Skin/Breast: Denies pruritus, Denies erythema, Denies rash and Denies wounds Neurologic Neurologic: Denies loss of vision, Denies numbness, Denies tingling and Denies weakness Allergic/Immunologic Allergic/Immunologic: Denies wheezing PFSH <Alison Murray DO - Last Filed: 05/16/19 07:22> Medical History Alcoholism (Acute) Anxiety (Acute) Bipolar 1 disorder (Acute) Depression (Acute) Hypertension (Acute) Surgical History No pertinent past surgical history (Acute) Social History household members: other Smoking Status: Never smoker alcohol intake: current Social History household members: other Smoking Status: Never smoker alcohol intake: current Exam <Alison Murray DO - Last Filed: 05/16/19 07:22> Initial Vital Signs Initial Vital Signs: Vital Signs Temperature 97.8 F 05/16/19 02:58 Pulse Rate 86 05/16/19 02:58 Respiratory Rate 17 05/16/19 02:58 Blood Pressure 107/63 05/16/19 02:58 Pulse Oximetry 98 05/16/19 02:58 GENERAL: Intoxicated male HEENT: Head atraumatic,EOMI, pupils reactive, face symmetric, moist mucous membranes CARDIOVASCULAR: Regular rate and rhythm without murmurs, rubs or gallops. RESPIRATORY: Breath sounds equal bilaterally, no wheezes rales or rhonchi. ABDOMEN: Soft, nontender. Normoactive bowel sounds all 4 quadrants. No guarding or rebound. : No CVA tenderness EXTREMITIES: Normal range of motion, no clubbing or edema. Neurovascularly intact NEUROLOGICAL: Alert and oriented x4.Normal gait and speech. Cranial nerves II through XII grossly intact. SKIN: Warm, dry, no laceration, no petechiae, no rashes or lesions. <Sal Aguilera DO - Last Filed: 05/16/19 18:09> Initial Vital Signs Initial Vital Signs: Vital Signs Temperature 97.8 F 05/16/19 02:58 Pulse Rate 86 05/16/19 02:58 Respiratory Rate 17 05/16/19 02:58 Blood Pressure 107/63 05/16/19 02:58 Pulse Oximetry 98 05/16/19 02:58 Course <Alison Murray DO - Last Filed: 05/16/19 07:22> Orders Ordered: Discontinued Medications Acetaminophen (Tylenol) 650 mg PO NOW ONE Stop: 05/16/19 16:59 Last Admin: 05/16/19 17:06 Dose: 650 mg Documented by: YUE Ibuprofen (Advil) 400 mg PO NOW ONE Stop: 05/16/19 16:59 Last Admin: 05/16/19 17:06 Dose: 400 mg Documented by: VIVIANM Lorazepam (Ativan) 1 mg IV NOW ONE Stop: 05/16/19 02:51 Last Admin: 05/16/19 03:11 Dose: 1 mg Documented by: PALAK Lorazepam (Ativan) 1 mg IV NOW ONE Stop: 05/16/19 03:29 Last Admin: 05/16/19 03:34 Dose: 1 mg Documented by: LREED Vital Signs Vital signs: Vital Signs - 8 hr 05/16/19 12:54 Pulse Rate 92 H Respiratory Rate 15 Blood Pressure [Left Arm] 153/77 H Pulse Oximetry 97 <Sal Aguilera DO - Last Filed: 05/16/19 18:09> Course Course Narrative: patient received in sign out from Dr. Murray. Independently interviewed and examined. Patient is clearly depressed, he has some options lined up for help but nothing is concrete. He drinks to excess and his life is at risk. He has been medically cleared, but we've asked [facility] to see patient as it is my opinion that he is an appropriate candidate for Javan's law Patient seen by DCR, placed at a facility in [place]. Patient understands. Orders Ordered: Discontinued Medications Acetaminophen (Tylenol) 650 mg PO NOW ONE Stop: 05/16/19 16:59 Last Admin: 05/16/19 17:06 Dose: 650 mg Documented by: YUE Ibuprofen (Advil) 400 mg PO NOW ONE Stop: 05/16/19 16:59 Last Admin: 05/16/19 17:06 Dose: 400 mg Documented by: YUE Lorazepam (Ativan) 1 mg IV NOW ONE Stop: 05/16/19 02:51 Last Admin: 05/16/19 03:11 Dose: 1 mg Documented by: PALAK Lorazepam (Ativan) 1 mg IV NOW ONE Stop: 05/16/19 03:29 Last Admin: 05/16/19 03:34 Dose: 1 mg Documented by: JORDON Vital Signs Vital signs: Vital Signs - 8 hr 05/16/19 12:54 Pulse Rate 92 H Respiratory Rate 15 Blood Pressure [Left Arm] 153/77 H Pulse Oximetry 97 MDM - SOB/Dyspnea <Alison Murray DO - Last Filed: 05/16/19 07:22> Lab Data Result diagrams: 05/16/19 03:05 05/16/19 03:05 Labs: Lab Results 05/16/19 05/16/19 05/16/19 Range/Units 03:05 03:05 03:05 WBC 7.2 (4.5-11.0) X10^3/uL RBC 3.47 L (4.5-5.9) X10^6/uL Hgb 10.6 L (13.5-17.5) g/dL Hct 31.9 L (41-53) % MCV 91.9 (80-100) fL MCH 30.5 (26-34) PG MCHC 33.2 (30-36) % RDW 15.0 H (11.6-14.8) % Plt Count 465 H (150-400) X10^3/uL Neut % (Auto) 35.1 L (50-75) % Lymph % (Auto) 51.3 H (25-40) % [place] % (Auto) 7.5 (3-14) % Eos % (Auto) 4.8 H (2-4) % Baso % (Auto) 1.3 (0-2) % Neut # (Auto) 2500 (1012-4119) /uL Lymph # (Auto) 3700 (1918-6164) /uL [place] # (Auto) 500 (0-900) /uL Eos # (Auto) 300 (0-450) /uL Baso # (Auto) 100 (0-100) /uL Sodium 145 (137-145) mmol/L Potassium 3.8 (3.4-5.1) mmol/L Chloride 108 H (98-107) mmol/L Carbon Dioxide 20 L (22-32) mmol/L BUN 18 (9-20) mg/dL Creatinine 1.40 H (0.66-1.25) mg/dL Estimated GFR 51.9 L (>60) mL/min BUN/Creatinine Ratio 12.9 (6-22) Glucose 101 H (70-100) mg/dL Calcium 8.9 (8.4-10.2) mg/dL Total Bilirubin 0.3 (0.2-1.3) mg/dL AST 21 (17-59) IU/L ALT 20 L (21-72) IU/L Alkaline Phosphatase 54 (38-126) U/L Total Creatine Kinase 134 (55-170) U/L CK-MB (CK-2) 1.19 (<2.37) ng/mL CK-MB (CK-2) Rel Index 0.9 L (1.5-5.0) % Troponin I < 0.012 (0.01-0.034) ng/mL B-Natriuretic Peptide < 100 (<100) Total Protein 6.7 (6.3-8.2) g/dL Albumin 3.9 (3.5-5.0) g/dL Globulin 2.8 (1.7-4.1) g/dL Albumin/Globulin Ratio 1.4 (1.0-2.8) Lipase (23-300) U/L Urine Opiates Screen (Negative) Ur Oxycodone Screen (Negative) Urine Methadone Screen (Negative) Ur Barbiturates Screen (Negative) U Tricyclic Antidepress (Negative) Ur Phencyclidine Scrn (Negative) Ur Amphetamines Screen (Negative) U Methamphetamines Scrn (Negative) Ur MDMA Scrn (Ecstasy) (Negative) U Benzodiazepines Scrn (Negative) Urine Cocaine Screen (Negative) U Marijuana (THC) Screen (Negative) Ethyl Alcohol 257 H ( - 10) mg/dL 05/16/19 05/16/19 05/16/19 Range/Units 03:05 03:45 06:10 WBC (4.5-11.0) X10^3/uL RBC (4.5-5.9) X10^6/uL Hgb (13.5-17.5) g/dL Hct (41-53) % MCV (80-100) fL MCH (26-34) PG MCHC (30-36) % RDW (11.6-14.8) % Plt Count (150-400) X10^3/uL Neut % (Auto) (50-75) % Lymph % (Auto) (25-40) % [place] % (Auto) (3-14) % Eos % (Auto) (2-4) % Baso % (Auto) (0-2) % Neut # (Auto) (2793-6309) /uL Lymph # (Auto) (5315-4360) /uL [place] # (Auto) (0-900) /uL Eos # (Auto) (0-450) /uL Baso # (Auto) (0-100) /uL Sodium (137-145) mmol/L Potassium (3.4-5.1) mmol/L Chloride (98-107) mmol/L Carbon Dioxide (22-32) mmol/L BUN (9-20) mg/dL Creatinine (0.66-1.25) mg/dL Estimated GFR (>60) mL/min BUN/Creatinine Ratio (6-22) Glucose (70-100) mg/dL Calcium (8.4-10.2) mg/dL Total Bilirubin (0.2-1.3) mg/dL AST (17-59) IU/L ALT (21-72) IU/L Alkaline Phosphatase (38-126) U/L Total Creatine Kinase (55-170) U/L CK-MB (CK-2) (<2.37) ng/mL CK-MB (CK-2) Rel Index (1.5-5.0) % Troponin I < 0.012 (0.01-0.034) ng/mL B-Natriuretic Peptide (<100) Total Protein (6.3-8.2) g/dL Albumin (3.5-5.0) g/dL Globulin (1.7-4.1) g/dL Albumin/Globulin Ratio (1.0-2.8) Lipase 377 H (23-300) U/L Urine Opiates Screen Negative (Negative) Ur Oxycodone Screen Negative (Negative) Urine Methadone Screen Negative (Negative) Ur Barbiturates Screen Positive H (Negative) U Tricyclic Antidepress Negative (Negative) Ur Phencyclidine Scrn Negative (Negative) Ur Amphetamines Screen Negative (Negative) U Methamphetamines Scrn Negative (Negative) Ur MDMA Scrn (Ecstasy) Negative (Negative) U Benzodiazepines Scrn Positive H (Negative) Urine Cocaine Screen Negative (Negative) U Marijuana (THC) Screen Positive H (Negative) Ethyl Alcohol ( - 10) mg/dL Urine Dip Bedside Urine Glucose Negative Bedside Urine Bilirubin - Negative Bedside Urine Ketone +/- 5 Urine Specific Coyle 1.010 Bedside Urine Occult Blood - Negative Bedside Urine pH 6.0 Bedside Urine Protein - Negative Bedside Urine Urobilinogen - Negative Bedside Urine Nitrite - Negative Bedside Urine Leukocytes - Negative Esterase Imaging Data Chest x-ray: Attestation: I personally reviewed and interpreted this imaging study as follows: My impression: No acute cardiopulmonary process ECG Data Attestation: I personally reviewed and interpreted this ECG as follows: Prior ECG tracings: available for review Interpretation: Normal sinus rhythm rate 87 p.r. interval 166 QRS [address] changes or depressions no T-wave inversions similar to previous EKGs MDM Narrative Medical decision making narrative: Patient continues to ask all staff members toof him he says it is not worth it he does not belong here. Patient has had multiple hospital visits with the same complaint. He is given Ativan as he is trying to get up and leave. Patient signed out to Dr. Aguilera for further evaluation and management <Sla Aguilera, - Last Filed: 05/16/19 18:09> Lab Data Labs: Lab Results 05/16/19 05/16/19 05/16/19 Range/Units 03:05 03:05 03:05 WBC 7.2 (4.5-11.0) X10^3/uL RBC 3.47 L (4.5-5.9) X10^6/uL Hgb 10.6 L (13.5-17.5) g/dL Hct 31.9 L (41-53) % MCV 91.9 (80-100) fL MCH 30.5 (26-34) PG MCHC 33.2 (30-36) % RDW 15.0 H (11.6-14.8) % Plt Count 465 H (150-400) X10^3/uL Neut % (Auto) 35.1 L (50-75) % Lymph % (Auto) 51.3 H (25-40) % [place] % (Auto) 7.5 (3-14) % Eos % (Auto) 4.8 H (2-4) % Baso % (Auto) 1.3 (0-2) % Neut # (Auto) 2500 (7778-9848) /uL Lymph # (Auto) 3700 (0016-3911) /uL [place] # (Auto) 500 (0-900) /uL Eos # (Auto) 300 (0-450) /uL Baso # (Auto) 100 (0-100) /uL Sodium 145 (137-145) mmol/L Potassium 3.8 (3.4-5.1) mmol/L Chloride 108 H (98-107) mmol/L Carbon Dioxide 20 L (22-32) mmol/L BUN 18 (9-20) mg/dL Creatinine 1.40 H (0.66-1.25) mg/dL Estimated GFR 51.9 L (>60) mL/min BUN/Creatinine Ratio 12.9 (6-22) Glucose 101 H (70-100) mg/dL Calcium 8.9 (8.4-10.2) mg/dL Total Bilirubin 0.3 (0.2-1.3) mg/dL AST 21 (17-59) IU/L ALT 20 L (21-72) IU/L Alkaline Phosphatase 54 (38-126) U/L Total Creatine Kinase 134 (55-170) U/L CK-MB (CK-2) 1.19 (<2.37) ng/mL CK-MB (CK-2) Rel Index 0.9 L (1.5-5.0) % Troponin I < 0.012 (0.01-0.034) ng/mL B-Natriuretic Peptide < 100 (<100) Total Protein 6.7 (6.3-8.2) g/dL Albumin 3.9 (3.5-5.0) g/dL Globulin 2.8 (1.7-4.1) g/dL Albumin/Globulin Ratio 1.4 (1.0-2.8) Lipase (23-300) U/L Urine Opiates Screen (Negative) Ur Oxycodone Screen (Negative) Urine Methadone Screen (Negative) Ur Barbiturates Screen (Negative) U Tricyclic Antidepress (Negative) Ur Phencyclidine Scrn (Negative) Ur Amphetamines Screen (Negative) U Methamphetamines Scrn (Negative) Ur MDMA Scrn (Ecstasy) (Negative) U Benzodiazepines Scrn (Negative) Urine Cocaine Screen (Negative) U Marijuana (THC) Screen (Negative) Ethyl Alcohol 257 H ( - 10) mg/dL 05/16/19 05/16/19 05/16/19 Range/Units 03:05 03:45 06:10 WBC (4.5-11.0) X10^3/uL RBC (4.5-5.9) X10^6/uL Hgb (13.5-17.5) g/dL Hct (41-53) % MCV (80-100) fL MCH (26-34) PG MCHC (30-36) % RDW (11.6-14.8) % Plt Count (150-400) X10^3/uL Neut % (Auto) (50-75) % Lymph % (Auto) (25-40) % [place] % (Auto) (3-14) % Eos % (Auto) (2-4) % Baso % (Auto) (0-2) % Neut # (Auto) (6845-9565) /uL Lymph # (Auto) (6747-3792) /uL [place] # (Auto) (0-900) /uL Eos # (Auto) (0-450) /uL Baso # (Auto) (0-100) /uL Sodium (137-145) mmol/L Potassium (3.4-5.1) mmol/L Chloride (98-107) mmol/L Carbon Dioxide (22-32) mmol/L BUN (9-20) mg/dL Creatinine (0.66-1.25) mg/dL Estimated GFR (>60) mL/min BUN/Creatinine Ratio (6-22) Glucose (70-100) mg/dL Calcium (8.4-10.2) mg/dL Total Bilirubin (0.2-1.3) mg/dL AST (17-59) IU/L ALT (21-72) IU/L Alkaline Phosphatase (38-126) U/L Total Creatine Kinase (55-170) U/L CK-MB (CK-2) (<2.37) ng/mL CK-MB (CK-2) Rel Index (1.5-5.0) % Troponin I < 0.012 (0.01-0.034) ng/mL B-Natriuretic Peptide (<100) Total Protein (6.3-8.2) g/dL Albumin (3.5-5.0) g/dL Globulin (1.7-4.1) g/dL Albumin/Globulin Ratio (1.0-2.8) Lipase 377 H (23-300) U/L Urine Opiates Screen Negative (Negative) Ur Oxycodone Screen Negative (Negative) Urine Methadone Screen Negative (Negative) Ur Barbiturates Screen Positive H (Negative) U Tricyclic Antidepress Negative (Negative) Ur Phencyclidine Scrn Negative (Negative) Ur Amphetamines Screen Negative (Negative) U Methamphetamines Scrn Negative (Negative) Ur MDMA Scrn (Ecstasy) Negative (Negative) U Benzodiazepines Scrn Positive H (Negative) Urine Cocaine Screen Negative (Negative) U Marijuana (THC) Screen Positive H (Negative) Ethyl Alcohol ( - 10) mg/dL Urine Dip Bedside Urine Glucose Negative Bedside Urine Bilirubin - Negative Bedside Urine Ketone +/- 5 Urine Specific Coyle 1.010 Bedside Urine Occult Blood - Negative Bedside Urine pH 6.0 Bedside Urine Protein - Negative Bedside Urine Urobilinogen - Negative Bedside Urine Nitrite - Negative Bedside Urine Leukocytes - Negative Esterase Discharge Plan Departure Patient Disposition: Xfer Psychiatric Hosp Clinical Impression: Alcohol abuse Prescriptions: No Action hydrochlorothiazide 50 mg tablet 50 mg PO DAILY RF: 0 carvedilol 3.125 mg tablet 3.125 mg PO BID RF: 0 pantoprazole 40 mg tablet,delayed release (DR/EC) 40 mg PO DAILY RF: 0 lisinopril 40 mg tablet 40 mg PO DAILY RF: 0 naltrexone 50 mg tablet 50 mg PO DAILY RF: 0 bupropion HCl 150 mg tablet extended release 24 hr 150 mg PO DAILY RF: 0 trazodone 50 mg tablet 50 mg PO BEDTIME RF: 0 sertraline 100 mg tablet 100 mg PO DAILY RF: 0 acetaminophen 325 mg Tablet 975 mg PO Q8H PRN (Reason: Pain, Mild (1-3)) Qty: 30 RF: 0 thiamine HCl (vitamin B1) [Vitamin B-1] 100 mg Tablet 100 mg PO DAILY Qty: 30 RF: 0 folic acid 1 mg Tablet 1 mg PO DAILY Qty: 30 RF: 0 doxycycline hyclate 100 mg capsule 100 mg PO BID Qty: 14 RF: 0 Referrals: Lana Rizzo ARNP [Primary Care Provider] -
[2019-05-16] MEDS: LORazepam 2 MG/ML INJ 1 MG IV ×2 (03:11→03:34)
[2019-05-16 03:18] LABS: Add Manual Diff / Slide Review NO; Basophils Absolute Auto 100 /uL (0-100); Basophils Percent Auto 1.3 % (0-2); Eosinophils Absolute Auto 300 /uL (0-450); Eosinophils Percent Auto 4.8 % (2-4); Hematocrit 31.9 % (41-53); Hemoglobin 10.6 g/dL (13.5-17.5); Lymphocytes Absolute Auto 3700 /uL (1100-4500); Lymphocytes Percent Auto 51.3 % (25-40); Mean Corpuscular HGB Conc 33.2 % (30-36); Mean Corpuscular Hemoglobin 30.5 PG (26-34); Mean Corpuscular Volume 91.9 fL (80-100); Monocytes Absolute Auto 500 /uL (0-900); Monocytes Percent Auto 7.5 % (3-14); Neutrophils Absolute Auto 2500 /uL (1500-7000); Neutrophils Percent Auto 35.1 % (50-75); Platelet Count 465 X10^3/uL (150-400); Red Blood Cell Count 3.47 X10^6/uL (4.5-5.9); White Blood Cell Count 7.2 X10^3/uL (4.5-11.0)
[2019-05-16 03:25] LABS: Creatine Kinase 134 U/L (55-170); Ethanol (ETOH) 257 mg/dL
[2019-05-16 03:27] LABS: Alanine Aminotransferase 20 IU/L (21-72); Albumin 3.9 g/dL (3.5-5.0); Albumin Globulin Ratio 1.4 (1.0-2.8); Alkaline Phosphatase 54 U/L (38-126); Aspartate Aminotransferase 21 IU/L (17-59); BUN Creatinine Ratio 12.9 (6-22); Bilirubin Total 0.3 mg/dL (0.2-1.3); Blood Urea Nitrogen 18 mg/dL (9-20); Calcium 8.9 mg/dL (8.4-10.2); Carbon Dioxide 20 mmol/L (22-32); Chloride 108 mmol/L (98-107); Estimated Glomerular Filt Rate 51.9 mL/min (>60); Globulin 2.8 g/dL (1.7-4.1); Glucose 101 mg/dL (70-100); HEMOLYSIS < 15 (0-50); Potassium 3.8 mmol/L (3.4-5.1); Sodium 145 mmol/L (137-145); Total Protein 6.7 g/dL (6.3-8.2)
[2019-05-16 03:38] LABS: Troponin I < 0.012 ng/mL (0.01-0.034)
[2019-05-16 03:40] LABS: CKMB % Relative Index 0.9 % (1.5-5.0); Creatine Kinase MB 1.19 ng/mL (<2.37)
[2019-05-16 03:41] LABS: B Type Natriuretic Peptide < 100 (<100)
[2019-05-16 03:57] LABS: Lipase 377 U/L (23-300)
[2019-05-16 03:58] LABS: Urine Tetrahydrocannabinol Positive (Negative)
[2019-05-16 04:00] LABS: Urine Amphetamines Negative (Negative); Urine Barbiturates Positive (Negative); Urine Benzodiazepines Positive (Negative); Urine Cocaine Negative (Negative); Urine MDMA Negative (Negative); Urine Methadone Negative (Negative); Urine Methamphetamines Negative (Negative); Urine Morphine/Opi cutoff 2000 Negative (Negative); Urine Phencyclidine Negative (Negative)
[2019-05-16 04:01] LABS: Urine Oxycodone Negative (Negative); Urine Tricyclic Antidepressant Negative (Negative)
--- NOTE | 2019-05-16 05:28 | PC.NURSE ---
Patient ate 1/2 sandwich and drank 8 oz of water. Patient urinated 1000mL total from 2 separate voids. Standby assistance given for patient safety. Patient denies suicidal ideation when asked. foster care worker to see patient this morning. Breakfast tray ordered. Patient speaking in full sentences when awake.
--- NOTE | 2019-05-16 05:32 | PC.NURSE ---
He denies any suicidal,harmfull or homicidal thoughts now.He was offered a sandwich and beverage which he ate.
[2019-05-16 06:44] LABS: Troponin I < 0.012 ng/mL (0.01-0.034)
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
--- NOTE | 2019-05-16 14:08 | PC.NURSE ---
cherrie is here visiting pt in room 5.
--- NOTE | 2019-05-16 16:37 | PC.NURSE ---
pt requested to take a walk. i walked with pt for 10 min, pt now back to room and sitting in a chair.
--- NOTE | 2019-05-16 16:51 | CM.SWNOTE ---
Pt seen by DCR and deemed detainable under [place]avan's Law. Placement was accepted at [facility] treatment facility in [place]. EXECUTIVE TALENT ACQUISITION CONSULTANT called [facility] and arranged for BLS transport, ETA approximately 6:15pm this evening.
[2019-05-16] MEDS: IBUPROFEN 400 MG TABLET PO (17:06)
[2019-05-16] MEDS: ACETAMINOPHEN 325 MG TABLET 650 MG PO (17:06)
== END 2019-05-16 18:00 ==
PROVIDERS: Emergency Medicine; Emergency Provider Emergency Medicine; Family Provider Nurse Practitioner; PCP Nurse Practitioner
DX: F10.10 Alcohol abuse, uncomplicated (principal); R06.02 Shortness of breath
CPT/HCPCS: 36415; 36591; 71045; 80053; 80305; 80320; 81003; 82550; 82553; 83690; 83880; 84484; 85025; 93005; 96374; 99285; J2060